=== PATIENT | female | born 1945 | race Caucasian/White ===

== ENCOUNTER 2021-01-10 07:54 | Outpatient (REF) | payer MEDICARE, SELFPAY ==
--- NOTE | ~2021-01-10 | US_ITS ---
EXAMINATION: US ABDOMINAL AORTIC ULTRASOUND CLINICAL INFORMATION: Family history of AAA. COMPARISON: Abdominal ultrasound on 05/19/2017. TECHNIQUE: Real-time ultrasound and Doppler techniques (integrating B-mode 2-D vascular images, Doppler spectral analysis and color flow Doppler imaging) were utilized to interrogate the abdominal aorta. FINDINGS: Proximal aorta: 2.6 cm AP; 2.2 cm transverse. Middle aorta: 2.2 cm AP; 2.1 cm transverse. Distal aorta: 1.6 cm AP; 1.6 cm transverse. Right common iliac artery: 0.82 cm. Left common iliac artery: 1.0 cm ADDITIONAL FINDINGS: Likely complex hepatic cysts are identified. The right lobe cyst measures up to 3.1 x 1.9 x 3.3 cm. This cyst contains a septation. The left lobe cyst measures up to 2.6 x 2.1 x 2.5 cm. This is essentially unchanged in size when compared to the comparison study in 2017. US/US abdominal aortic aneurysm IMPRESSION: 1. Normal caliber abdominal aorta. No evidence of aneurysm. 2. Minimally complex hepatic cysts.
== END 2021-01-10 07:55 | disposition home or self-care (01) ==
LOC: HO.US 07:54
PROVIDERS: Visit Provider Internal Medicine
DX: K27.7 Chronic peptic ulcer, site unspecified, without hemorrhage or perforation (principal); Z82.49 Family history of ischemic heart disease and other diseases of the circulatory system
CPT/HCPCS: 76706

== ENCOUNTER 2021-12-07 10:09 | Outpatient (REF) | payer MEDICARE, SELFPAY ==
[2021-12-07 10:13] LABS: MANUAL DIFF FLAG NO
[2021-12-07 10:27] LABS: Appearance Urine CLEAR; Color Urine YELLOW; Glucose Urine UA NEG (NEG); Leukocyte Esterase Urine TRACE (NEG); Nitrite Urine NEG (NEG); PH 5.5 (5.0-8.0); Specific Gravity - Urine 1.025 (1.005-1.025); Urine Blood TRACE (NEG); Urine Ketones NEG (NEG); Urine Protein NEG (NEG-TRACE)
[2021-12-07 10:28] LABS: Basophils Absolute Auto 0.1 X10*3/uL (0.0-0.2); Basophils Percent Auto 0.8 % (0-2); Eosinophils Absolute Auto 0.5 X10*3/uL (0.0-0.4); Eosinophils Percent Auto 7.1 % (0-4); Hematocrit 41.9 % (37.0-47.0); Hemoglobin 13.5 g/dl (12.0-16.0); Imm Gran Abs Auto 0.03 X10*3/uL (0.00-0.03); Imm Gran Pct Auto 0.4 % (0.0-0.4); Lymphocytes Absolute Auto 2.6 X10*3/uL (1.2-4.9); Lymphocytes Percent Auto 35.2 % (20-40); Mean Corpuscular HGB Conc 32.2 g/dl (31.0-35.0); Mean Corpuscular Hemoglobin 30.8 pg (27.0-33.0); Mean Corpuscular Volume 95.4 fL (80.0-98.0); Mean Platelet Volume 9.8 fL (9.4-12.3); Monocytes Absolute Auto 0.7 X10*3/uL (0.1-1.2); Monocytes Percent Auto 8.9 % (2-11); Neutrophils Absolute Auto 3.5 x10*3/uL (2.0-8.3); Neutrophils Percent Auto 47.6 % (45-73); Platelet Count 259 X10*3/uL (160-400); Red Blood Count 4.39 X10*6/uL (4.20-5.50); White Blood Count 7.3 X10*3/uL (4.8-10.8)
[2021-12-07 10:34] LABS: Alanine Aminotransferase 16 U/L (0-31); Albumin Level 4.3 g/dL (3.5-5.0); Alkaline Phosphatase 83 U/L (39-117); Anion Gap 13 (12-20); Aspartate Amino Transferase 15 U/L (5-31); Bilirubin Total 0.3 mg/dL (0.0-1.0); Blood Urea Nitrogen 13 mg/dL (9-16); Calcium 9.7 mg/dL (8.4-10.2); Carbon Dioxide 28 mmol/L (22-29); Chloride 105 mmol/L (96-108); Cholesterol 263 mg/dL; Estimated Glomerular Filt Rate > 60; Glucose Fasting 90 mg/dL (60-99); HDL Cholesterol 61 mg/dL; LDL Cholesterol Calculated 164 mg/dl; Potassium 4.2 mmol/L (3.3-5.1); Sodium 142 mmol/L (135-145); Total Protein 7.2 g/dL (6.5-8.0); Triglycerides 190 mg/dL
[2021-12-07 10:36] LABS: Estimated Average Glucose 108 mg/dL; Hemoglobin A1C 148.8223 umol/L; Hemoglobin A1c % 5.4 %
[2021-12-07 10:40] LABS: Creatinine Urine 90.78 mg/dL; Microalbum/Creatinine Ratio Ur 29.7 ug/mg cr
[2021-12-07 10:51] LABS: RBC Urine 0-2 /HPF (0); WBC Urine 0-2 /HPF (0-4)
[2021-12-07 10:52] LABS: Bacteria Urine TRACE /LPF
[2021-12-07 10:56] LABS: Vitamin D 25-OH Total 19.3 ng/mL (>30)
== END 2021-12-07 10:10 | disposition home or self-care (01) ==
LOC: HO.LNP 10:09
PROVIDERS: Visit Provider Internal Medicine
DX: Z00.00 Encounter for general adult medical examination without abnormal findings (principal); R73.03 Prediabetes; E78.00 Pure hypercholesterolemia, unspecified; D72.820 Lymphocytosis (symptomatic); E55.9 Vitamin D deficiency, unspecified
CPT/HCPCS: 80053; 80061; 81001; 82043; 82306; 83036; 85025

== ENCOUNTER 2022-02-01 07:55 | Outpatient (REF) | payer MEDICARE, SELFPAY ==
--- NOTE | ~2022-02-01 | US_ITS ---
EXAMINATION: US ABDOMEN COMPLETE CLINICAL INFORMATION: Hepatic cyst. COMPARISON: Abdominal ultrasound dated 01/10/2021. TECHNIQUE: Real-time imaging of the abdominal viscera. FINDINGS: PANCREAS: Normal. ABDOMINAL AORTA: The proximal, mid, and distal segments are normal in caliber. INFERIOR VENA CAVA: Visualized portions are normal. LIVER: The liver is normal in size. The liver contour is normal. There is no intrahepatic biliary duct dilatation seen. Within the right hepatic lobe, a lobulated anechoic, simple appearing cyst is seen. Previously this showed ultrasound dimensions of 3.1 x 1.9 x 3.3 cm. Within the left hepatic lobe, a 2.9 x 2.2 x 2.8 cm lobulated cyst is seen, with partial fine septation. Previously this showed ultrasound dimensions of 2.6 x 2.1 x 2.5 cm. Neither of these cysts shows mural nodularity or associated color Doppler flow. GALLBLADDER: Normal. The gallbladder is physiologically distended without evidence of stones, sludge, polyps, wall thickening or pericholecystic fluid. COMMON BILE DUCT: Normal in caliber measuring 0.2 cm in diameter. RIGHT KIDNEY: Normal. No hydronephrosis. No renal calculi or focal parenchymal lesions. The kidney measures 9.9 cm in maximum dimension. LEFT KIDNEY: Normal. No hydronephrosis. No renal calculi or focal parenchymal lesions. The kidney measures 10.0 cm in maximum dimension. SPLEEN: Normal. The spleen measures 7.5 cm in maximum dimension. FREE FLUID: None. US/US abdomen complete IMPRESSION: 1. There is a continued stable appearance of hepatic cysts, as detailed. 2. There is generalized increase in hepatic echotexture, consistent with fatty infiltration or hepatocellular disease. Please correlate clinically. No focal hepatic solid mass or intrahepatic biliary dilatation is seen.
== END 2022-02-01 07:56 | disposition home or self-care (01) ==
LOC: HO.US 07:55
PROVIDERS: PCP Internal Medicine; Visit Provider Internal Medicine
DX: K76.89 Other specified diseases of liver (principal)
CPT/HCPCS: 76700

== ENCOUNTER → 2022-07-08 08:51 | Outpatient (BNVA) | payer MEDICARE, SELFPAY | PROVIDERS: PCP Internal Medicine; Referring Provider Internal Medicine; Visit Provider Internal Medicine | DX: R07.2 Precordial pain (principal) | CPT/HCPCS: 93005; 99202 ==

== ENCOUNTER → 2022-07-18 15:13 | Outpatient (REF) | payer MEDICARE, SELFPAY ==
--- NOTE | 2022-07-18 15:16 | CA_ITS ---
Transthoracic Echocardiogram Patient (Last, First, Middle): Ida Hernandez A Gender: Female Date of : 1945 Age: 76 Procedure Date: 07/18/2022 Procedure Type: Transthoracic Echocardiogram Location: OP Height: 165.1 cm Weight: 75.75 kg BSA: 1.83 m2 Heart Rate: bpm BP: 110 / 82 mmHg Financial Processing Clerk: TO Referring MD: James Morley MD Community Support Associate: Graham Butterfield MD Symptoms: R07.2 - Precordial pain Study Quality: Fair ECG Rhythm: Sinus Conclusions: - 1. Normal LV systolic function with impaired relaxation filling pattern 2. Normal cardiac valvular Doppler 3. Normal RV systolic pressure 4. No gross pericardial effusion Findings Left Ventricle Normal left ventricular size, thickness, and systolic function. The visually estimated ejection fraction is between 60-65%. Spectral Doppler is indicative of an impaired relaxation filling pattern. E/E prime ratio is between 8 and 15 consistent with indeterminate filling pressures. Right Ventricle Normal right ventricular cavity size and systolic function. Atria The left atrium is normal in size. Interatrial shunt cannot be excluded. The right atrium is normal in size. Aortic Valve There is mild calcification of the aortic valve. There is no aortic valve stenosis. There is no aortic valve regurgitation. Mitral Valve There is mild anterior and posterior mitral leaflet thickening. There is trace mitral valve regurgitation. There is no mitral valve stenosis. Pulmonic Valve The pulmonic valve was not well visualized. Tricuspid Valve Likely normal tricuspid valve structure and function. There is trace tricuspid valve regurgitation. The right ventricular systolic pressure is normal. The right ventricular systolic pressure is 33 mmHg. Normal right atrial pressure. There is no evidence of pulmonary hypertension. Great Vessels All visible segments of the aorta are normal in size. The pulmonary artery was not well visualized. Venous The inferior vena cava is normal in size and collapses greater than 50% with inspiration. Pericardium/Pleural There is no evidence of pericardial effusion. Prior Study Comparison No significant change compared to prior study dated: 07/16/2017. Measurements 2D Linear Measurements IVSd: 0.94 0.6-0.9/0.6-1.0 cm LVIDd: 4.02 3.9-5.3/4.2-5.9 cm LVIDd Index: 2.20 2.4-3.2/2.2-3.1 cm/m2 LVIDs: 2.36 2.0-3.6 cm LVPWd: 0.75 0.7-1.1 cm LA Diam: 3.40 2.7-3.8/3.0-4.0 cm LAIDs Index: 1.86 1.5-2.3 cm/m2 LV Mass: 125.75 67-162/88-224 g LV Mass Index: 68.71 43-95/49-115 g/m2 LVOT Diam: 2.10 3.0+(-)1.3 cm 2D Systolic Function EF 4C: 66.50 >55% EF 2C: 62.50 >55% EF BiP: 64.90 >55% Mitral Valve MV Pk E: 0.56 MV PK A: 0.48 MV Decel Time: 240.00 E/A: 1.20 E'Lateral: 7.18 E'Medial: 5.98 E/E' Med: 9.30 E/E' Lat: 7.80 PHT: 70.00 MVA PHT: 3.14 Decel Coal: 2.32 Aortic Valve AoV Pk Jonnie: 1.41 AoV Mn Jonnie: 0.87 AoV VTI: 0.27 AoV Pk Grad: 8.00 Aov Mn Grad: 4.00 CRYS Cont.VTI: 2.33 LVOT LVOT Pk Jonnie: 0.91 LVOT Mn Jonnie: 0.60 LVOT VTI: 0.18 LVOT Pk Grad: 3.00 LVOT Mn Grad: 2.00 LVOT Diam: 2.10 LVOT Area: 3.46 Diastolic Function MV Pk E: 0.56 MV Pk A: 0.48 E/A: 1.20 E'Medial: 5.98 E/E' Med: 9.30 E' Laterial: 7.18 E/E' Lat: 7.80 Right Ventricle TAPSE (mm): 22.20 TVS' Jonnie: 12.70 Tricuspid Valve TR Pk Jonnie: 2.74 TR Pk Grad: 30.00 RA Press: 3.00 RVSP: 33.00 Great Vessels Aorta Sinus of Valsalva: 3.61 2.0-3.[address] [place]: 3.02 1.7-3.4 cm Ao Asc: 3.10 2.1-3.4 cm Updated in Other Vendor System with Status of Final Graham Scout MD electronically signed on 07/19/2022 3:12:00 PM with status of Final
== END ==
LOC: HO.CARD 15:13
PROVIDERS: Visit Provider Internal Medicine
DX: R07.2 Precordial pain (principal)
CPT/HCPCS: 93306

== ENCOUNTER 2022-07-30 09:31 | Outpatient (REF) | payer MEDICARE, SELFPAY ==
[2022-07-30 10:25] LABS: Anion Gap 15 (12-20); Blood Urea Nitrogen 17 mg/dL (9-16); Calcium 10.2 mg/dL (8.4-10.2); Carbon Dioxide 28 mmol/L (22-29); Chloride 104 mmol/L (96-108); Estimated Glomerular Filt Rate > 60; Glucose Random 89 mg/dL (60-115); Potassium 5.3 mmol/L (3.3-5.1); Sodium 142 mmol/L (135-145)
== END 2022-07-30 09:32 | disposition home or self-care (01) ==
LOC: HO.LAB 09:31
PROVIDERS: PCP Internal Medicine; Visit Provider Internal Medicine
DX: R07.2 Precordial pain (principal)
CPT/HCPCS: 36415; 80048

== ENCOUNTER 2022-08-08 15:55 | Outpatient (REF) | payer MEDICARE, SELFPAY ==
[2022-08-08 16:24] LABS: Potassium 4.4 mmol/L (3.3-5.1)
== END 2022-08-08 15:56 | disposition home or self-care (01) ==
LOC: HO.LNP 15:55
PROVIDERS: Visit Provider Internal Medicine
DX: E87.5 Hyperkalemia (principal)
CPT/HCPCS: 84132

== ENCOUNTER → 2022-08-27 15:02 | Outpatient (BNVA) | payer MEDICARE, SELFPAY | PROVIDERS: PCP Internal Medicine; Visit Provider Internal Medicine | DX: R07.2 Precordial pain (principal); I25.10 Atherosclerotic heart disease of native coronary artery without angina pectoris | CPT/HCPCS: 99212 ==

== ENCOUNTER 2022-12-16 10:52 | Outpatient (REF) | payer MEDICARE, SELFPAY ==
[2022-12-16 11:11] LABS: Basophils Absolute Auto 0.1 X10*3/uL (0.0-0.2); Basophils Percent Auto 0.8 % (0-2); Eosinophils Absolute Auto 0.4 X10*3/uL (0.0-0.4); Eosinophils Percent Auto 3.5 % (0-4); Hematocrit 43.7 % (37.0-47.0); Hemoglobin 13.8 g/dl (12.0-16.0); Imm Gran Abs Auto 0.08 X10*3/uL (0.00-0.03); Imm Gran Pct Auto 0.7 % (0.0-0.4); Lymphocytes Absolute Auto 5.7 X10*3/uL (1.2-4.9); Lymphocytes Percent Auto 48.8 % (20-40); MANUAL DIFF FLAG SCAN; Mean Corpuscular HGB Conc 31.6 g/dl (31.0-35.0); Mean Corpuscular Hemoglobin 30.6 pg (27.0-33.0); Mean Corpuscular Volume 96.9 fL (80.0-98.0); Mean Platelet Volume 9.7 fL (9.4-12.3); Monocytes Percent Auto 8.2 % (2-11); Neutrophils Absolute Auto 4.4 x10*3/uL (2.0-8.3); Platelet Count 301 X10*3/uL (160-400); Red Blood Count 4.51 X10*6/uL (4.20-5.50); Red Cell Distribution Width 13.6 % (11.0-16.0); SCAN SMEAR FLAG 1; White Blood Count 11.6 X10*3/uL (4.8-10.8)
[2022-12-16 11:13] LABS: Appearance Urine Clear; Color Urine Yellow; Glucose Urine UA Negative (Negative); Leukocyte Esterase Urine Trace (Negative); Nitrite Urine Negative (Negative); PH 5.5 (5.0-9.0); Specific Gravity - Urine 1.015 (1.005-1.025); UMIC TRIGGER UACC YES; Urine Blood Negative (Negative); Urine Ketones Negative (Negative); Urine Protein Negative (Neg-Trace)
[2022-12-16 11:18] LABS: Estimated Average Glucose 117 mg/dL; Hemoglobin A1c % 5.7 %
[2022-12-16 11:20] LABS: Bacteria Urine None Seen (None Seen); Hyaline Casts Urine 0-2 /LPF (0-2); RBC Urine 0-2 /HPF (0-2); Squamous Epithelial Cell Urine 0-2 /HPF (0-2); WBC Urine 0-5 /HPF (0-5)
[2022-12-16 11:33] LABS: SLIDE REVIEW VERIFIED
[2022-12-16 11:38] LABS: Alanine Aminotransferase 17 U/L (0-31); Albumin Level 4.3 g/dL (3.5-5.0); Alkaline Phosphatase 79 U/L (39-117); Anion Gap 14 (12-20); Aspartate Amino Transferase 12 U/L (5-31); Bilirubin Total 0.7 mg/dL (0.0-1.0); Blood Urea Nitrogen 27 mg/dL (9-16); Calcium 9.5 mg/dL (8.4-10.2); Carbon Dioxide 28 mmol/L (22-29); Chloride 105 mmol/L (96-108); Cholesterol 175 mg/dL; Estimated Glomerular Filt Rate > 60; Glucose Fasting 80 mg/dL (60-99); HDL Cholesterol 64 mg/dL; LDL Cholesterol Calculated 86 mg/dl; Potassium 4.4 mmol/L (3.3-5.1); Sodium 143 mmol/L (135-145); Total Protein 6.8 g/dL (6.5-8.0); Triglycerides 125 mg/dL
[2022-12-16 11:40] LABS: Vitamin D 25-OH Total 32.3 ng/mL (>30)
[2022-12-16 12:02] LABS: Creatinine Urine 58.64 mg/dL
== END 2022-12-16 10:53 | disposition home or self-care (01) ==
LOC: HO.LNP 10:52
PROVIDERS: Visit Provider Internal Medicine
DX: Z00.00 Encounter for general adult medical examination without abnormal findings (principal); R73.09 Other abnormal glucose; E78.00 Pure hypercholesterolemia, unspecified; D72.820 Lymphocytosis (symptomatic); E55.9 Vitamin D deficiency, unspecified; Z87.448 Personal history of other diseases of urinary system
CPT/HCPCS: 80053; 80061; 81001; 82043; 82306; 83036; 85025

== ENCOUNTER 2023-01-13 10:59 | Outpatient (REF) | payer MEDICARE, SELFPAY ==
[2023-01-13 11:02] LABS: MANUAL DIFF FLAG NO
[2023-01-13 11:42] LABS: Basophils Absolute Auto 0.1 X10*3/uL (0.0-0.2); Basophils Percent Auto 0.8 % (0-2); Eosinophils Absolute Auto 0.3 X10*3/uL (0.0-0.4); Eosinophils Percent Auto 4.4 % (0-4); Hemoglobin 13.3 g/dl (12.0-16.0); Imm Gran Abs Auto 0.03 X10*3/uL (0.00-0.03); Imm Gran Pct Auto 0.4 % (0.0-0.4); Lymphocytes Absolute Auto 2.3 X10*3/uL (1.2-4.9); Mean Corpuscular HGB Conc 31.7 g/dl (31.0-35.0); Mean Corpuscular Hemoglobin 30.5 pg (27.0-33.0); Mean Corpuscular Volume 96.3 fL (80.0-98.0); Monocytes Absolute Auto 0.7 X10*3/uL (0.1-1.2); Monocytes Percent Auto 8.8 % (2-11); Neutrophils Absolute Auto 4.1 x10*3/uL (2.0-8.3); Neutrophils Percent Auto 54.6 % (45-73); Platelet Count 270 X10*3/uL (160-400); Red Blood Count 4.36 X10*6/uL (4.20-5.50); Red Cell Distribution Width 13.2 % (11.0-16.0); White Blood Count 7.5 X10*3/uL (4.8-10.8)
[2023-01-13 11:54] LABS: Blood Urea Nitrogen 16 mg/dL (9-16)
== END 2023-01-13 11:00 | disposition home or self-care (01) ==
LOC: HO.LNP 10:59
PROVIDERS: Visit Provider Internal Medicine
DX: R79.9 Abnormal finding of blood chemistry, unspecified (principal); D72.820 Lymphocytosis (symptomatic)
CPT/HCPCS: 84520; 85025

== ENCOUNTER 2023-02-06 09:45 | Outpatient (REF) | payer MEDICARE, SELFPAY ==
--- NOTE | ~2023-02-06 | FL_ITS ---
EXAMINATION: XR FLUOROSCOPY UPPER GI WITH AIR CLINICAL INFORMATION: Acid reflux. COMPARISON: None available. TECHNIQUE: Routine upper GI air-contrast study was performed in upright and lying position. FINDINGS: Following oral administration of thick barium and effervescent granules there is normal propagation of bolus from the oral cavity through the pharynx, esophagus into stomach without any evidence of obstruction, narrowing or stricture. On placing patient supine and prone lying the course, caliber and peristalsis of the stomach, duodenal bulb and the sweep is normal. There is small hiatal hernia with mild gastroesophageal reflux. The mucosal pattern of the stomach, duodenal bulb and the sweep is normal. FLUOROSCOPY TIME: 2 minutes DOSE AREA PRODUCT: 29.020 uGy-m2 (microgray-meter squared) FL/FL upper GI w air IMPRESSION: Small hiatal hernia with mild gastroesophageal reflux.
== END 2023-02-06 09:46 | disposition home or self-care (01) ==
LOC: HO.XRAY 09:45
PROVIDERS: Visit Provider Internal Medicine
DX: K21.00 Gastro-esophageal reflux disease with esophagitis, without bleeding (principal)
CPT/HCPCS: 74246

== ENCOUNTER → 2023-02-27 08:09 | Outpatient (BNVA) | payer MEDICARE, SELFPAY | PROVIDERS: PCP Internal Medicine; Referring Provider Internal Medicine; Visit Provider Internal Medicine | DX: I25.10 Atherosclerotic heart disease of native coronary artery without angina pectoris (principal); Z79.82 Long term (current) use of aspirin; Z79.899 Other long term (current) drug therapy | CPT/HCPCS: 99212 ==

== ENCOUNTER 2024-01-09 07:42 | Outpatient (REF) | payer MEDICARE, SELFPAY ==
[2024-01-09 08:14] LABS: MANUAL DIFF FLAG NO
[2024-01-09 08:18] LABS: Basophils Absolute Auto 0.1 X10*3/uL (0.0-0.2); Eosinophils Absolute Auto 0.3 X10*3/uL (0.0-0.4); Eosinophils Percent Auto 4.1 % (0-4); Hematocrit 40.9 % (37.0-47.0); Hemoglobin 13.4 g/dl (12.0-16.0); Imm Gran Abs Auto 0.03 X10*3/uL (0.00-0.03); Imm Gran Pct Auto 0.4 % (0.0-0.4); Lymphocytes Percent Auto 28.8 % (20-40); Mean Corpuscular HGB Conc 32.8 g/dl (31.0-35.0); Mean Corpuscular Volume 94.7 fL (80.0-98.0); Mean Platelet Volume 9.1 fL (9.4-12.3); Monocytes Absolute Auto 0.5 X10*3/uL (0.1-1.2); Monocytes Percent Auto 6.4 % (2-11); Neutrophils Absolute Auto 4.2 x10*3/uL (2.0-8.3); Neutrophils Percent Auto 59.3 % (45-73); Platelet Count 243 X10*3/uL (160-400); Red Blood Count 4.32 X10*6/uL (4.20-5.50); Red Cell Distribution Width 13.1 % (11.0-16.0)
[2024-01-09 08:51] LABS: Estimated Average Glucose 103 mg/dL; Hemoglobin A1c % 5.2 % (<6.0)
[2024-01-09 08:59] LABS: Appearance Urine Clear; Color Urine Yellow; Glucose Urine UA Negative (Negative); Leukocyte Esterase Urine Moderate (2+) (Negative); Nitrite Urine Negative (Negative); Specific Gravity - Urine 1.015 (1.005-1.025); UMIC TRIGGER UACC YES; Urine Blood Trace (Negative); Urine Ketones Negative (Negative); Urine Protein Negative (Neg-Trace)
[2024-01-09 09:06] LABS: Bacteria Urine None Seen (None Seen); Hyaline Casts Urine 0-2 /LPF (0-2); Squamous Epithelial Cell Urine 0-2 /HPF (0-2); UACC Culture Trigger YES
[2024-01-09 09:06] LABS: Alanine Aminotransferase 19 U/L (0-31); Albumin Level 4.3 g/dL (3.5-5.0); Alkaline Phosphatase 77 U/L (39-117); Anion Gap 14 (12-20); Aspartate Amino Transferase 17 U/L (5-31); Bilirubin Total 0.5 mg/dL (0.0-1.0); Blood Urea Nitrogen 19 mg/dL (9-16); Calcium 9.9 mg/dL (8.4-10.2); Carbon Dioxide 28 mmol/L (22-29); Chloride 106 mmol/L (96-108); Cholesterol 167 mg/dL (<200); Estimated Glomerular Filt Rate > 60; Glucose Fasting 95 mg/dL (60-99); HDL Cholesterol 64 mg/dL (>40); LDL Cholesterol Calculated 85 mg/dL (<100); Sodium 143 mmol/L (135-145); Total Protein 7.4 g/dL (6.5-8.0); Triglycerides 90 mg/dL (<150)
[2024-01-09 09:08] LABS: Vitamin D 25-OH Total 27.9 ng/mL (>30)
[2024-01-09 09:16] LABS: Creatinine Urine 73.03 mg/dL
== END 2024-01-09 07:43 | disposition home or self-care (01) ==
LOC: HO.LAB 07:42
PROVIDERS: PCP Internal Medicine; Visit Provider Internal Medicine
DX: Z00.00 Encounter for general adult medical examination without abnormal findings (principal); R73.03 Prediabetes; E78.00 Pure hypercholesterolemia, unspecified; D72.820 Lymphocytosis (symptomatic); E55.9 Vitamin D deficiency, unspecified
CPT/HCPCS: 36415; 80053; 80061; 81001; 82043; 82306; 82570; 83036; 85025; 87086

== ENCOUNTER 2024-01-14 08:28 | Outpatient (REF) | payer MEDICARE, SELFPAY ==
--- NOTE | ~2024-01-14 | XR_ITS ---
EXAMINATION: XR THORACIC SPINE CLINICAL INFORMATION: Upper back pain COMPARISON: CXR from 09/08/2018 TECHNIQUE: 3 views of the thoracic spine were obtained. FINDINGS: The thoracic vertebra have normal height and alignment. There is 17 degrees of levoscoliosis of the lower thoracic and lumbar spine as measured from the superior endplate of T10 to the inferior plate of L3, apex of curvature at T12. The thoracic disc spaces are well-preserved. No fracture or subluxation. No radiographic evidence of any significant inflammatory or degenerative arthropathy of the lumbar spine. There is multilevel facet arthropathy of the cervical spine and associated mild anterolisthesis at C3-C4 and C4-C5. There is degenerative loss of disc space and anterior vertebral osteophyte formation at C5-C6. Multilevel degenerative loss of disc height and vertebral osteophyte formation of partially visualized lumbar spine, as well, and there is mild degenerative left lateral listhesis of L1 on L2. There is atherosclerotic calcification of the aorta. XR/XR thoracic spine 3V IMPRESSION: * There is levoscoliosis of the lower thoracic and lumbar spine with apex of curvature at T12. * No evidence of a spondyloarthropathy affecting the thoracic spine. * However, there are multilevel degenerative changes of the visualized cervical and lumbar spine.
== END 2024-01-14 08:29 | disposition home or self-care (01) ==
LOC: HO.XRAY 08:28
PROVIDERS: PCP Internal Medicine; Visit Provider Internal Medicine
DX: M54.9 Dorsalgia, unspecified (principal)
CPT/HCPCS: 72072

== ENCOUNTER 2024-01-30 10:53 | Outpatient (REF) | payer MEDICARE, SELFPAY ==
[2024-01-30 11:49] LABS: Appearance Urine Clear; Color Urine Yellow; Glucose Urine UA Negative (Negative); Leukocyte Esterase Urine Moderate (2+) (Negative); Nitrite Urine Negative (Negative); PH 5.5 (5.0-9.0); Specific Gravity - Urine 1.015 (1.005-1.025); UMIC TRIGGER UACC YES; Urine Blood Negative (Negative); Urine Ketones Negative (Negative); Urine Protein Negative (Neg-Trace)
[2024-01-30 11:53] LABS: Bacteria Urine None Seen (None Seen); Hyaline Casts Urine 0-2 /LPF (0-2); RBC Urine 0-2 /HPF (0-2); Squamous Epithelial Cell Urine 0-2 /HPF (0-2); UACC Culture Trigger YES
== END 2024-01-30 10:54 | disposition home or self-care (01) ==
LOC: HO.LNP 10:53
PROVIDERS: Visit Provider Internal Medicine
DX: R31.9 Hematuria, unspecified (principal)
CPT/HCPCS: 81001; 87086

== ENCOUNTER 2024-03-16 13:28 | Outpatient (AMB) | payer MEDICARE, SELFPAY ==
--- NOTE | 2024-03-16 13:30 | MHC.OFFVIS ---
Vital Signs 03/16/24 13:31 Height 5 ft 5 in Weight 163 lb 2.273 oz BMI 27.1 BP 130/72 Blood Pressure Location Lt brachial Position Sitting Pulse 73 Intake Visit Reasons: 1 yr f/up Business Practices Officer Required: No Accompanied by: Self / Same As Patient Allergies atorvastatin [Lipitor] Allergy (Unknown, Verified 02/27/23 08:23) myalgia naproxen [Naprosyn] Allergy (Unknown, Verified 02/27/23 08:23) oral sores simvastatin Allergy (Unknown, Verified 02/27/23 08:23) myalgia Medication List - Last Reconciled 03/16/24 by James Morley MD aspirin (Adult Low Dose Aspirin) 81 mg PO DAILY duloxetine 60 mg PO DAILY nitroglycerin 0.4 mg sublingual Q5M omeprazole 20 mg PO DAILY rosuvastatin (Crestor) 20 mg PO DAILY HPI Comments Details: Ida returns for follow-up regarding coronary artery disease. She had some episodes of chest and jaw pain but only at nighttime but nothing exertion. She underwent workup with a coronary CTA. That showed nonobstructive disease. Overall, no new symptoms. She states she feels fine. No cardiac symptoms like angina. With regard to statins, lot of muscle spasm like symptoms. [facility] Medical History (Updated 03/16/24 @ 14:43 by James Morley MD) Statin intolerance Surgical History History of back surgery Hx of hernia repair Hx of hysterectomy Family History Father No problems noted. Mother No problems noted. Social History Alcohol intake: current Alcohol intake frequency: holidays/special occasions only Patient Tobacco Use Status: Former Tobacco user Quit Date: 10+yrs ago Review of Systems Const Denies chills, Denies fatigue, Denies fever(s), Denies frequent falls, Denies weakness, Denies weight gain and Denies weight loss ENT Denies dizziness Card Denies chest pain, Denies leg edema, Denies lightheadedness, Denies palpitations, Denies dyspnea and Denies dyspnea on exertion Resp Denies cough, Denies dyspnea and Denies dyspnea on exertion GI Denies hematochezia Musc Denies abnormal gait, Denies muscle weakness, Denies numbness, Denies radiating pain into limb and Denies tingling Neuro Denies abnormal gait, Denies dizziness, Denies frequent falls, Denies numbness, Denies tingling and Denies weakness Endo Denies fatigue and Denies palpitations Physical Exam Vital Signs: Last Vital Signs Pulse 73 03/16/24 13:31 BP 130/72 03/16/24 13:31 BMI result Body Mass Index 27.1 Const General: comfortable and no acute distress Orientation/consciousness: patient oriented x3 HEENT Other: Unremarkable Head: Yes normal to inspection Neck Neck: Yes normal visual inspection Chest Chest palpation & inspection: normal inspection of the chest Resp Auscultation: clear to auscultation bilaterally Cardio Palpation: normal PMI Heart sounds: S1 normal heart sound present, S2 normal heart sound present, no gallops, no murmurs and no rubs GI Palpation (GI): Soft to palpation Back/Spine/Pelvis Other: unremarkable Skin General skin exam: no rashes or lesions noted Neuro General: patient oriented x3 Extrem General: Yes normal to inspection Psych Mental Status: mental status grossly normal Office Procedures EKG Details: EKG with sinus rhythm at 88/Min; no significant ST-T changes and otherwise unremarkable[place]. [address]-[id number], Complete Assessment & Plan Assessment & Plan (1) Atherosclerotic cardiovascular disease: Code(s): I25.10 - Atherosclerotic heart disease of [place] coronary artery without angina pectoris Category: Medical (2) Statin intolerance: Code(s): Z78.9 - Other specified health status Category: Medical Plan Cardiac studies reviewed. Echocardiogram from 2017 with LVEF 60-65%; mild diastolic dysfunction but otherwise unremarkable. Myocardial perfusion imaging study from 2017 with normal perfusion. Coronary CTA from 2021-left main with mild stenosis; LAD, 50% stenosis in the mid to distal portion. Circumflex 50% stenosis. Right coronary artery with suspected about 50% stenosis. Can rate for stable coronary disease. Continue aspirin. With regard to statins, unable to take and she is tried both atorvastatin as well as rosuvastatin. Hence try Praluent. Orders: Referrals Pulmonary Medicine Referral Z12.2 - Encounter for screening for malignant neoplasm of respiratory organs Medications: New alirocumab (Praluent Pen) inject into abdomen, thigh, or upper arm (deltoid muscle); rotate sites 75 mg subcut Q2W 2 mL 5RF E78.5 - Hyperlipidemia, unspecified, I25.10 - Atherosclerotic heart disease of [place] coronary artery without angina pectoris Discontinued rosuvastatin (Crestor) Discontinued Reason: Doctor's Order 20 mg PO DAILY 90 tabs 3RF Coding Level of Care Code Est Pt Level 4 (46312) Diagnoses Atherosclerotic cardiovascular disease I25.10 Statin intolerance Z78.9 CPT Codes EKG - CPT: 14465-Skokfyyosavlfbetz, Complete ([id number])
[2024-03-16 13:31] VITALS: BP 130/72; PULSE 73; BMI 27.1
== END 2024-03-16 14:02 | disposition home or self-care (01) ==
PROVIDERS: PCP Internal Medicine; Visit Provider Internal Medicine
DX: I25.10 Atherosclerotic heart disease of native coronary artery without angina pectoris (principal); Z78.9 Other specified health status
CPT/HCPCS: 93010; 99214

== ENCOUNTER → 2024-03-16 13:28 | Outpatient (BNVA) | payer MEDICARE, SELFPAY | PROVIDERS: PCP Internal Medicine; Visit Provider Internal Medicine | DX: I25.10 Atherosclerotic heart disease of native coronary artery without angina pectoris (principal); E78.5 Hyperlipidemia, unspecified; Z78.9 Other specified health status | CPT/HCPCS: 93005; 99212 ==

== ENCOUNTER 2024-06-17 10:20 | Outpatient (REF) | payer MEDICARE, SELFPAY ==
[2024-06-17 11:08] LABS: Estimated Average Glucose 105 mg/dL; Hemoglobin A1c % 5.3 % (<6.0)
[2024-06-17 11:34] LABS: Cholesterol 142 mg/dL (<200); Glucose Fasting 102 mg/dL (60-99); HDL Cholesterol 62 mg/dL (>40); LDL Cholesterol Calculated 63 mg/dL (<100); Triglycerides 88 mg/dL (<150)
== END 2024-06-17 10:21 | disposition home or self-care (01) ==
LOC: HO.LNP 10:20
PROVIDERS: Visit Provider Internal Medicine
DX: R73.09 Other abnormal glucose (principal); E78.00 Pure hypercholesterolemia, unspecified
CPT/HCPCS: 80061; 82947; 83036

== ENCOUNTER 2024-07-01 13:03 | Outpatient (REF) | payer MEDICARE, SELFPAY ==
[2024-07-01 13:54] LABS: TSH reflex Free T4 0.99 uIU/mL (0.32-4.0)
== END 2024-07-01 13:04 | disposition home or self-care (01) ==
LOC: HO.LNP 13:03
PROVIDERS: Visit Provider Internal Medicine
DX: R68.89 Other general symptoms and signs (principal)
CPT/HCPCS: 84443

== ENCOUNTER 2024-09-06 06:23 | Day surgery (SDC) | payer MEDICARE, SELFPAY ==
[2024-09-02 14:28] VITALS: BMI 26.3
[2024-09-06 07:26] VITALS: BMI 26.1
--- NOTE | 2024-09-06 07:30 | HO.ANESPROP2 ---
Documented by User: Kelsey Lombardo NP 09/03/24 09:00 HPI - Anesthesia Eval Consult details Narrative: 79yo F for Colonoscopy Follows [facility] [place] [facility] for stable CAD. Last office visit 02/2024 and OK for routine yearly f/u [facility] Active Problems Active Problems: All Active Problems Atherosclerotic cardiovascular disease (Acute) Precordial chest pain (Acute) Statin intolerance (Acute) Past Medical History Medical History (Updated 09/02/24 @ 14:10 by Annamarie Engle RN) Hiatal hernia GERD (gastroesophageal reflux disease) Hepatic cyst Hyperlipidemia Fibromyalgia Depression Statin intolerance Family History Family History Father No problems noted. Mother No problems noted. Surgical History Surgical History (Updated 09/02/24 @ 14:10 by Annamarie Engle RN) Hx of appendectomy H/O colonoscopy History of back surgery Hx of hernia repair Hx of hysterectomy Social History Social History Are you a primary neonatal critical care nurse to a significant other at home: No Do you presently have visiting nurse or other home services: No Alcohol intake: current Alcohol intake frequency: holidays/special occasions only Patient Tobacco Use Status: Former Tobacco user Use of substances other than those prescribed or required for medical reasons: No Have you been hit, kicked, punched, or otherwise hurt by someone within the past year? If so, by whom?: No Are you DNR?: No Advance Directives: No Advance Directives Information Provided: Yes Recently lost weight without trying: No Nutrition Risks: No Nutritional Risk Patient : No Meds Allergies Allergy/AdvReac Type Severity Reaction Status Date / Time atorvastatin [Lipitor] Allergy Unknown myalgia Verified 09/06/24 07:24 naproxen [Naprosyn] Allergy Unknown oral sores Verified 09/06/24 07:24 simvastatin Allergy Unknown myalgia Verified 09/06/24 07:24 crestor/rosuvastatin AdvReac Intermediate myalgias Uncoded 03/18/24 10:39 Home Medications ?Medication ?Instructions ?Recorded ?Confirmed ?Last Taken ?Type duloxetine 60 mg capsule,delayed 60 mg PO DAILY 07/08/22 09/02/24 Unknown History release nitroglycerin 0.4 mg sublingual 0.4 mg sublingual Q5M 07/08/22 09/06/24 Unknown History tablet omeprazole 20 mg capsule,delayed 20 mg PO DAILY 07/08/22 09/06/24 Unknown History release aspirin 81 mg tablet,delayed 81 mg PO DAILY 02/27/23 09/06/24 08/31/24 History release (Adult Low Dose Aspirin) Exam Height,Weight and Vital Signs: Height 5 ft 6 in Weight 73.936 kg Pertinent Lab Results Pertinent Lab Results: Laboratory Tests 01/09/24 08:12 WBC 7.0 Hgb 13.4 Hct 40.9 Plt Count 243 Sodium 143 Potassium 5.0 Chloride 106 Carbon Dioxide 28 BUN 19 H Creatinine 0.86 Narrative Narrative: EKG 02/2024 sinus rhythm at 73/Min; nonspecific ST-T changes; normal [place] and corrected QT. Per 02/2024 cardiac note: Echocardiogram from 2016 with LVEF 60-65%; mild diastolic dysfunction but otherwise unremarkable. Myocardial perfusion imaging study from 2016 with normal perfusion. Coronary CTA from 2021-left main with mild stenosis; LAD, 50% stenosis in the mid to distal portion. Circumflex 50% stenosis. Right coronary artery with suspected about 50% stenosis. Assessment and Plan Assessment Anesthesia Assessment: Chart Reviewed Documented by User: Kimberly Barragan DO 09/06/24 07:34 [facility] Past Medical History Medical History (Updated 09/02/24 @ 14:10 by Annamarie Engle RN) Hiatal hernia GERD (gastroesophageal reflux disease) Hepatic cyst Hyperlipidemia Fibromyalgia Depression Statin intolerance Family History Family History Father No problems noted. Mother No problems noted. Family history of problems with anesthesia: No Surgical History Surgical History (Updated 09/02/24 @ 14:10 by Annamarie Engle RN) Hx of appendectomy H/O colonoscopy History of back surgery Hx of hernia repair Hx of hysterectomy History of Problems with Anesthesia: No Social History Social History Are you a primary neonatal critical care nurse to a significant other at home: No Do you presently have visiting nurse or other home services: No Alcohol intake: current Alcohol intake frequency: holidays/special occasions only Patient Tobacco Use Status: Former Tobacco user Use of substances other than those prescribed or required for medical reasons: No Have you been hit, kicked, punched, or otherwise hurt by someone within the past year? If so, by whom?: No Are you DNR?: No Advance Directives: No Advance Directives Information Provided: Yes Recently lost weight without trying: No Nutrition Risks: No Nutritional Risk Patient : No Meds Allergies Allergy/AdvReac Type Severity Reaction Status Date / Time atorvastatin [Lipitor] Allergy Unknown myalgia Verified 09/06/24 07:24 naproxen [Naprosyn] Allergy Unknown oral sores Verified 09/06/24 07:24 simvastatin Allergy Unknown myalgia Verified 09/06/24 07:24 crestor/rosuvastatin AdvReac Intermediate myalgias Uncoded 03/18/24 10:39 Home Medications ?Medication ?Instructions ?Recorded ?Confirmed ?Last Taken ?Type duloxetine 60 mg capsule,delayed 60 mg PO DAILY 07/08/22 09/02/24 Unknown History release nitroglycerin 0.4 mg sublingual 0.4 mg sublingual Q5M 07/08/22 09/06/24 Unknown History tablet omeprazole 20 mg capsule,delayed 20 mg PO DAILY 07/08/22 09/06/24 Unknown History release aspirin 81 mg tablet,delayed 81 mg PO DAILY 02/27/23 09/06/24 08/31/24 History release (Adult Low Dose Aspirin) Exam Exam Date and Time: 09/06/24 0730 Airway Mallampati Class: I TM Dist: >3cm Neck ROM: Full Partial: Upper Heart: S1S2 Lungs: CTAB Assessment and Plan Assessment Anesthesia Assessment: Anesthesia Plan Discussed and Chart Reviewed Final Anesthetic Review Family History of Problems with Anesthesia: No History of Problems with Anesthesia: No NPO: Yes ASA Class: II Final Preanesthetic Review: No Changes in Pt Med Stat, Meds/Allgs Chart Reviewed, Consent Obtained/Reviewed and Anes Risks/Benef Reviewed Patient Risk: Low Procedure Risk: Low Anesthetic Plan Anesthetic Plan: MAC: and Agree w/ Assess. and Plan Disposition: Standard PACU
[2024-09-06 07:43] VITALS: BP 152/71; PULSE 73; RESP 14; TEMP 36.8; O2SAT 98
[2024-09-06] MEDS: Lactated Ringers 1,000 ML 100 ML IVCONT (07:45)
[2024-09-06 08:34] VITALS: BP 120/48; PULSE 76; RESP 16; TEMP 36.3; O2SAT 98
--- NOTE | 2024-09-06 08:34 | PM.OP ---
Brief Operative Note Date of Service: 09/06/24 Pre-op diagnosis: Screening Post-op diagnosis: other (Diverticulosis) Procedure: Colonoscopy to the cecum and TI Surgeon: Roque Wright MD Anesthesia: MAC Was an Geotechnical Department Manager used for this Procedure?: No Estimated blood loss (mL): 0 Pathology: none sent Condition: stable Disposition: PACU
[2024-09-06 08:49] VITALS: BP 147/66; PULSE 78; RESP 16; TEMP 36.2; O2SAT 98
--- NOTE | 2024-09-06 08:57 | OP_ITS ---
DATE OF SERVICE: 09/06/2024 SURGEON: Roque Wright MD INDICATIONS: The patient presents for evaluation of colorectal cancer screening. Full consent has been obtained from her for this, including risks of bleeding and perforation. PREOPERATIVE DIAGNOSIS: POSTOPERATIVE DIAGNOSIS: PROCEDURE PERFORMED: Colonoscopy to the cecum and terminal ileum. ESTIMATED BLOOD LOSS: COMPLICATIONS: ANESTHESIA: Monitored anesthesia care. ASSISTANTS: SPECIMENS: PREOPERATIVE DIAGNOSES: Colorectal cancer screening and personal history of a tubular adenoma of the colon. POSTOPERATIVE DIAGNOSES: Colorectal cancer screening and personal history of a tubular adenoma of the colon, diverticulosis, internal and external hemorrhoids. DESCRIPTION OF PROCEDURE: The patient was placed in the left lateral decubitus position. The digital rectal exam revealed some small external hemorrhoids. The Olympus video pediatric colonoscope was entered into the rectum and advanced easily to the cecum. Once in the cecum, I did identify normal-appearing cecal pouch with appendiceal orifice and a normal-appearing ileocecal valve. The terminal ileum was cannulated and appeared normal. The scope was withdrawn back in the colon. The entire cecum and ileocecal valve appeared normal. The scope was slowly withdrawn assessing all mucosal surfaces carefully. Preparation was excellent. I did not visualize any sign of polyps, colitis, or angiodysplasia. There was a moderate amount of diverticulosis in the descending and sigmoid colon as well as some scattered diverticula throughout the remainder of the colon. In the rectum, scope was retroflexed visualizing internal hemorrhoids, but no other pathology. The rectal mucosa otherwise appeared normal. The scope was straightened and withdrawn from the patient. She tolerated the procedure well and was returned to the recovery area in stable condition. IMPRESSION: 1. Diverticulosis. 2. Internal and external hemorrhoids. PLAN: Given today's negative exam and her age, I do not think she would need any further screening colonoscopies. She will otherwise see me on a p.r.n. basis. MD CESAR Long/JUAN CARLOS / [phone]
== END 2024-09-06 09:08 | disposition home or self-care (01) ==
PROVIDERS: PCP Internal Medicine; Visit Provider Internal Medicine
PROC: 0DJD8ZZ Inspection of Lower Intestinal Tract, Via Natural or Artificial Opening Endoscopic (ICD-10-PCS; CPT 45378; principal; 2024-09-06 07:30)
DX: Z12.11 Encounter for screening for malignant neoplasm of colon (principal); Z86.0101 Personal history of adenomatous and serrated colon polyps; K57.30 Diverticulosis of large intestine without perforation or abscess without bleeding; K64.8 Other hemorrhoids; K64.4 Residual hemorrhoidal skin tags; K21.9 Gastro-esophageal reflux disease without esophagitis; K76.89 Other specified diseases of liver; Z80.0 Family history of malignant neoplasm of digestive organs; M79.7 Fibromyalgia; E78.5 Hyperlipidemia, unspecified; F32.A Depression, unspecified; Z79.82 Long term (current) use of aspirin; Z79.899 Other long term (current) drug therapy; Z98.890 Other specified postprocedural states
CPT/HCPCS: G0105; J2704

== ENCOUNTER 2024-09-16 11:08 | Outpatient (REF) | payer MEDICARE, SELFPAY ==
--- NOTE | ~2024-09-16 | XR_ITS ---
EXAMINATION: XR HIP, LEFT CLINICAL INFORMATION: Pain. COMPARISON: Left femur radiographs dated 05/31/2016. TECHNIQUE: AP and frog-leg lateral views of the left hip. FINDINGS: Bony alignment and mineralization are normal. The left acetabular joint space is well-maintained. The left femoral head is smooth. There is no fracture or dislocation. The soft tissue planes are unremarkable, without foreign body. XR/XR hip LT min 2V IMPRESSION: Unremarkable left hip. Electronically signed by: Scottie White MD 09/16/2024 10:52 PM EDT RP
== END 2024-09-16 11:09 | disposition home or self-care (01) ==
LOC: HO.XRAY 11:08
PROVIDERS: PCP Internal Medicine; Visit Provider Internal Medicine
DX: M25.552 Pain in left hip (principal)
CPT/HCPCS: 73502

== ENCOUNTER 2025-01-07 10:57 | Outpatient (REF) | payer MEDICARE, SELFPAY ==
[2025-01-07 11:01] LABS: MANUAL DIFF FLAG NO
[2025-01-07 11:15] LABS: Basophils Absolute Auto 0.1 X10*3/uL (0.0-0.2); Eosinophils Absolute Auto 0.3 X10*3/uL (0.0-0.4); Eosinophils Percent Auto 4.1 % (0-4); Hematocrit 42.2 % (37.0-47.0); Hemoglobin 13.6 g/dl (12.0-16.0); Imm Gran Abs Auto 0.05 X10*3/uL (0.00-0.03); Imm Gran Pct Auto 0.6 % (0.0-0.4); Lymphocytes Absolute Auto 2.8 X10*3/uL (1.2-4.9); Lymphocytes Percent Auto 33.6 % (20-40); Mean Corpuscular HGB Conc 32.2 g/dl (31.0-35.0); Mean Corpuscular Hemoglobin 31.1 pg (27.0-33.0); Mean Corpuscular Volume 96.3 fL (80.0-98.0); Mean Platelet Volume 9.6 fL (9.4-12.3); Monocytes Absolute Auto 0.7 X10*3/uL (0.1-1.2); Monocytes Percent Auto 8.2 % (2-11); Neutrophils Absolute Auto 4.4 x10*3/uL (2.0-8.3); Neutrophils Percent Auto 52.5 % (45-73); Platelet Count 264 X10*3/uL (160-400); Red Blood Count 4.38 X10*6/uL (4.20-5.50); Red Cell Distribution Width 13.1 % (11.0-16.0); White Blood Count 8.4 X10*3/uL (4.8-10.8)
[2025-01-07 11:23] LABS: Estimated Average Glucose 105 mg/dL; Hemoglobin A1C 121.0106 umol/L; Hemoglobin A1c % 5.3 % (<6.0); Total Hemoglobin (HGBA1C) 3547.0654 umol/L
[2025-01-07 11:48] LABS: Alanine Aminotransferase 21 U/L (0-31); Albumin Level 4.2 g/dL (3.5-5.0); Alkaline Phosphatase 82 U/L (39-117); Anion Gap 12 (12-20); Aspartate Amino Transferase 23 U/L (5-31); Bilirubin Total 0.3 mg/dL (0.0-1.0); Blood Urea Nitrogen 19 mg/dL (9-16); Calcium 9.7 mg/dL (8.4-10.2); Carbon Dioxide 29 mmol/L (22-29); Chloride 106 mmol/L (96-108); Cholesterol 155 mg/dL (<200); Estimated Glomerular Filt Rate > 60; Glucose Fasting 86 mg/dL (60-99); HDL Cholesterol 62 mg/dL (>40); LDL Cholesterol Calculated 73 mg/dL (<100); Potassium 4.7 mmol/L (3.3-5.1); Sodium 142 mmol/L (135-145); Total Protein 7.6 g/dL (6.5-8.0); Triglycerides 101 mg/dL (<150); Vitamin D 25-OH Total 59.7 ng/mL (>30)
--- OUTSIDE RECORDS SUMMARY | 2025-01-07 12:05 | XMS_ITS ---
Author Organization Brandon Phelan MD Address [address] [place], [place] [id number] Care Team Providers Care Wave Guide Assembler Name Role Phone Brandon Phelan Primary Care Provider Allergies Allergen (clinical drug ingredient) Drug/Non Drug Allergy documented on EMR Reaction Allergy Type Onset Date Status Simvastatin myalgia Drug Allergy Activ e atorvastatin Lipitor myalgia Drug Allergy Acti ve Reason For Referral Reason lumbar disc disease Diagnosis 1 Lumbar disc disease with radiculopathy (M51.16) Referral Organization Brandon Phelan MD Referring Provider First Name Brandon Referring Provider Last Name [place] Referring Provider Speciality Internal M edicine Referred Provider Mich Santana Referred Provider Specialty Neurological Surgery General Notes Kaykay Rick 0 12/17/2024 12:24:08 PM >info faxed, Kaykay Rick 12/20/2024 07:23:46 AM >info mailed to patient Referral Priority Routine Referral Appointment Date 01/20/2025 REASON FOR VISIT back pain ? referral to Dr. Santana Medications Medication SIG (Take, Route, Frequency, Duration) Notes Start Date End Date Status Albuterol Sulfate HFA 108 (90 Base) MCG/ACT 1 puff as needed Inhalation every 4 hrs for 30 days 01/29/2022 Active Valtrex 1 GM 1 tablet Orally ever y 8 hours for 7 days 11/04/2016 Not-Taking ProAir HFA 108 (90 Base) MCG/ACT 2 puffs as needed Inhalation every 4 hrs for 30 days 01/18/2014 Not-Taking Aspir-Low 81 MG 1 tablet Orally Once a day for 30 day(s) Active Praluent 75 MG/ML as directed Subcutaneous Active Diprolene AF 0.05 % 1 application to affected area Externally Once a day for 30 days 08/13/2016 Not-Takin g Tylenol 8 Hour 650 MG 2 tablets as neede d Orally every 8 hrs Not-Taking ProAir RespiClick 108 (90 Base) MCG/ACT 2 puffs as needed Inhalation every 6 hrs for 30 days 09/08/2018 Not-Taking Vitamin D 50 MCG (1999 UT) 1 tablet Orally Once a day for 30 day(s) Not-Taking Ocuflox 0.3 % 1 drop into affected eye Ophthalmic Four times a day for 10 days 12/18/2021 Not-Taking Omeprazole 20 MG TAKE 1 CAPSULE BY MO UT EVERY DAY 30 MINUTES BEFORE MORNING MEAL for 90 Active DULoxetine HCl 60 MG TAKE 1 CAPSULE BY M OUTH EVERY DAY FOR 30 DAYS for 90 Active Nitrostat 0.4 MG as directed Sublingu al for chest pain may repeat every 5 min times 3 for 30 days 06/18/2022 Active Escitalopram Oxalate 10 MG 1 tablet Orally Once a day for 90 days Not-Taking Ocuflox 0.3 % 1 drop into affected eye Ophthalmic Four times a day for 7 days 06/18/2022 Not-Taking Vital Signs Blood pressure systolic 112 mm Hg 12/17/19 25 Blood pressure diastolic 64 mm Hg 025 Height 65 in 12/17/2024 Weight 161 lbs 12/17/2024 BMI 26.79 kg/m2 12/17/2024 weight is down 2 pounds [facility] 09-16-24 Encounters Encounter Location Date Provider Diagnosis Brandon Phelan MD [address] [place], [place] [phone] 12/17/2024 Brandon Phelan Lumbar disc disease with radiculopathy M51.16 Assessments Encounter Date Diagnosis (ICD Code) Assessment Notes Treatment Notes Treatment Clinical Notes Section Notes 12/17/2024 Lumbar disc disease with radiculopathy (ICD-10 - M51.16) referral to dr santana has pain in hip and can't walk without numbness. has a disc on the mri that i reviewed with her that seems to be consistant with her complaints. will refer back to dr santana. have reviewed the mri with her in detail Plan Of Treatment Treatment Notes Assessment Notes Lumbar disc disease with radiculopathy r eferral to dr santana has pain in hip and can't walk without numbness. has a disc on the mri that i reviewed with her that seems to be consistant with her complaints. will refer back to dr santana. have reviewed the mri with her in detail Referrals Referral Date Details 12/17/2024 12/17/2024, lumbar d isc disease, Mich Santana Next Appt Details Provider Name:Brandon Villagomez ier, 01/14/2025 08:00:00 AM, [address], [address], [place], [place], [id number], Progress Notes * Ida ROMO ADOB: 5 (79 yo F)Acc No.[id number]:12/17/2024 Patient:?Ida ROMO A Provider:?Brandon Phelan MD :1945???Age:79 Y???Sex:Female D ate:12/17/2024 Address: [address] [place], [id number] Subjective: * Chief Complaints: * ???back pain ? referral to Filipe Santana * HPI: ???Symptom(s):? patient is a 79 yo female with complaint of back pain, requesting referral to Dr Santana. * ROS:?General/Constitutional:?Denies?Chills.?Denies?Fatigue.?Denies?Fever.?Denies?Headache.?ENT:?Patient denies?decreased sense of smell, any loss of taste, sore throat.?Denies?Sore throat.?Respiratory:?Denies?Cough.?Denies?Shortness of breath at rest.?Denies?Shortness of breath with exertion.?Gastrointestinal:?Denies?Diarrhea.?Denies?Nausea.?Musculoskeletal:?Patient denies?muscle aches.?Peripheral Vascular:?Patient denies?red and blue toes.? * Medical History:? * Surgical History:? * Hospitalization/Major Diagno stic Procedure:? * Medications:?TakingPraluent 75 MG/ML Solution Auto-injector as directed Subcutaneous Aspir-Low 81 MG Tablet Delayed Release 1 tablet Orally Once a day Albuterol Sulfate HFA 108 (90 Base) MCG/ACT Aerosol Solution 1 puff as needed Inhalation every 4 hrs Nitrostat 0.4 MG Tablet Sublingual as directed Sublingual for chest pain may repeat every 5 min times 3 Omeprazole 20 MG Capsule Delayed Release TAKE 1 CAPSULE BY MOUTH EVERY DAY 30 MINUTES BEFORE MORNING MEAL DULoxetine HCl 60 MG Capsule Delayed Release Particles TAKE 1 CAPSULE BY MOUTH EVERY DAY FOR 30 DAYS Taking Praluent 75 MG/ML Solution Auto-injector as directed Subcutaneous Taking Aspir-Low 81 MG Tablet Delayed Release 1 tablet Orally Once a day Taking Albuterol Sulfate HFA 108 (90 Base) MCG/ACT Aerosol Solution 1 puff as needed Inhalation every 4 hrs Taking Nitrostat 0.4 MG Tablet Sublingual as directed Sublingual for chest pain may repeat every 5 min times 3 Taking Omeprazole 20 MG Capsule Delayed Release TAKE 1 CAPSULE BY MOUTH EVERY DAY 30 MINUTES BEFORE MORNING MEAL Taking DULoxetine HCl 60 MG Capsule Delayed Release Particles TAKE 1 CAPSULE BY MOUTH EVERY DAY FOR 30 DAYS Not- Taking/PRNEscitalopram Oxalate 10 MG Tablet 1 tablet Orally Once a day Ocuflox 0.3 % Solution 1 drop into affected eye Ophthalmic Four times a day Vitamin D 50 MCG (2000 UT) Tablet 1 tablet Orally Once a day Ocuflox 0.3 % Solution 1 drop into affected eye Ophthalmic Four times a day Tylenol 8 Hour 650 MG Tablet Extended Release 2 tablets as needed Orally every 8 hrs ProAir RespiClick 108 (90 Base) MCG/ACT Aerosol Powder Breath Activated 2 puffs as needed Inhalation every 6 hrs Diprolene AF 0.05 % Cream 1 application to affected area Externally Once a day Valtrex 1 GM Tablet 1 tablet Orally every 8 hours ProAir HFA 108 (90 Base) MCG/ACT Aerosol Solution 2 puffs as needed Inhalation every 4 hrs Medication List reviewed and reconciled with the patientNot-Taking/PRN Escitalopram Oxalate 10 MG Tablet 1 tablet Orally Once a day Not-Taking/PRN Ocuflox 0.3 % Solution 1 drop into affected eye Ophthalmic Four times a day Not- Taking/PRN Vitamin D 50 MCG (1999 UT) Tablet 1 tablet Orally Once a day Not-Taking/PRN Ocuflox 0.3 % Solution 1 drop into affected eye Ophthalmic Four times a day Not- Taking/PRN Tylenol 8 Hour 650 MG Tablet Extended Release 2 tablets as needed Orally every 8 hrs Not-Taking/PRN ProAir RespiClick 108 (90 Base) MCG/ACT Aerosol Powder Breath Activated 2 puffs as needed Inhalation every 6 hrs Not-Taking/PRN Diprolene AF 0.05 % Cream 1 application to affected area Externally Once a day Not-Taking/PRN Valtrex 1 GM Tablet 1 tablet Orally every 8 hours Not-Taking/PRN ProAir HFA 108 (90 Base) MCG/ACT Aerosol Solution 2 puffs as needed Inhalation every 4 hrs Medication List reviewed and reconciled with the patient * Allergies:?Simvastatin: myal giaLipitor: myalgiayes[Allergies Verified] Objective: * Vitals:?Ht: 65, Wt: 161, BMI :26.79, BP:112/64, Wt-k.03. weight is down 2 pounds since 09-16-24. * Examination: ???General Examination: ?GENERAL APPEARANCE:?alert, well hydrated, in no distress.?HEAD:?normocephalic.?SKIN:?good turgor.?HEART:?no murmurs, rubs, gallops.?LUNGS:?no wheezes, rales, rhonchi, good air movement, clear to auscultation bilaterally.?NEUROLOGIC:?dtr's good strength testing good..? Assessment: * Assessment: 1.?Lumbar disc disease with radiculopathy - M51.16 (Primary)??? Plan: * Treatment: * Procedure Codes:? * * Sign off status: Completed true * Provider:?Brandno Phelan MD Date:?0 12/17/2024 Generated for Glenis ribeiro/Brianna/Cheikh on:?01/07/2025 12:05 PM EST History and Physical Notes * HPI (History of Present Illness) Category Sub-Category Detail Notes Category Not es Symptom(s) patient is a 79 yo female with complaint of back pain, requesting referral to Dr Santana Examination Category Sub-Category Detail Notes Category Not es General Examination GENERAL APPEARANCE: alert, w ell hydrated, in no distress HEAD: normocephalic HEART: no murmurs, rubs, ga llops LUNGS: no wheezes, rales, r honchi, good air movement, clear to auscultation bilaterally NEUROLOGIC: dtr's good strength testing good. SKIN: good turgor Consultation Request Notes Referral Date Referring Provider Referred Provider Not es 12/17/2024 Brandon Phelan Dennis lumbar disc disease
--- OUTSIDE RECORDS SUMMARY | 2025-01-07 12:05 | XMS_ITS ---
Author Organization [facility] Address [address] [place] [id number] Care Team Providers Care Show Host/Hostess Name Role Phone Brandon Phelan MD Primary Care Provider Roque Monterroso Unavailable [phone] ALLERGIES No Known Allergies REASON FOR VISIT Patient presents today for a recall colonoscopy MEDICATIONS Medication SIG (Take, Route, Frequency, Duration) Notes Start Date End Date Status Omeprazole 20 MG Oral for 90 A ctive Aspir-81 Active Rosuvastatin Calcium 10 MG Oral for 90 Active Cymbalta Active SOCIAL HISTORY Tobacco Use: Social History Observation Description Date Details (start date - stop date) Never Smoker NA - NA Sex Assigned At : Social History Observation Description Sex Assigned At Unknown Tobacco Use/Smoking Question Answer Notes Patient is a nonsmoker Alcohol Screen Question Answer Notes Did you have a drink contain ing alcohol in the past year? Yes Points 3 Interpretation Positive How often did you have 6 or more drinks on one occasion in the past year? Never (0 point) How many drinks did you have on a typical day when you were drinking in the past year? 1 or 2 drinks (0 point) How often did you have a dri nk containing alcohol in the past year? 2 to 3 times a week (3 points) PROBLEMS Problem Type ICD Code Onset Dates Problem Status W/U Status Risk SNOMED Code Notes Problem Colon cancer screening (Z12.11) Active confirmed Colon cancer screening (281494691) Problem Aspirin long-term use (Z79.82) Active confirmed Long-term current use of aspirin (4144657663468 03) Problem Encounter for other preprocedural examination (Z01.818) Active confirmed Pre-procedure evaluation check (629100902) VITAL SIGNS BMI 26.31 kg/m2 03/09/2024 Blood pressure systolic 00 mm Hg 03/09/20 24 Blood pressure diastolic 00 mm Hg 024 Height 66 in 03/09/2024 Weight 163 lbs 03/09/2024 Encounters Encounter Location Date Provider Diagnosis [facility] [address] [place] [address] 03/09/2024 Roque Wright Colon cancer screeni ng Z12.11 ; Encounter for other preprocedural examination Z01.818 and Aspirin long-term use Z79.82 ASSESSMENTS Encounter Date Diagnosis Assessment Notes Treatment Notes Treatment Clinical Notes 03/09/2024 Colon cancer screening (ICD-10 - Z12.11) Stop aspirin for 1 week before the colonoscopy 03/09/2024 Encounter for other preprocedural examination (ICD-10 - Z01.818) 03/09/2024 Aspirin long-term use (ICD-10 - Z79.82) PLAN OF TREATMENT Treatment Notes Assessment Notes Colon cancer screening Stop aspirin for 1 week before the colonoscopy Future Test Test Name Order Date COLONOSCOPY 03/09/2024 Next Appt Details Follow Up: prn, Reason: Progress Notes * Examination Category Sub-Category Detail Notes General Examination GENERAL APPEARANCE: pleasant , well nourished, well developed, in no acute distress EYES: sclera non-icteric NECK/THYROID: no cervical lymphade nopathy, neck supple HEART: S1, S2 normal LUNGS: clear to auscultatio n bilaterally ABDOMEN: normal bowel sounds, no guarding or rigidity, no hepatosplenomegaly, no masses palpable, soft, nontender, nondistended. NEUROLOGIC: alert and oriented SKIN: nonjaundiced, no spi heidi angiomata. EXTREMITIES: no edema ORAL CAVITY: mucosa moist
--- OUTSIDE RECORDS SUMMARY | 2025-01-07 12:06 | XMS_ITS ---
Author Organization [facility] Address [address] [place] [address] Care Team Providers Care Government Affairs Researcher Name Role Phone Brandon Phelan MD Primary Care Provider Roque Monterroso Unavailable [phone] REASON FOR VISIT sceening PROBLEMS Problem Type ICD Code Onset Dates Problem Status W/U Status Risk SNOMED Code Notes Problem Diverticulosis of large intestine without perforation or abscess without bleeding (K57.30) Active confirmed Diverticul ar disease of colon (603247663) Encounters Encounter Location Date Provider Diagnosis [facility] [address] [place], [place] [phone] 09/06/2024 Roque Wright Colon cancer scree anay Z12.11 ; Personal history of colonic polyps Z86.0100 ; Diverticulosis of large intestine without perforation or abscess without bleeding K57.30 and Other hemorrhoids K64.8 ASSESSMENTS Encounter Date Diagnosis Assessment Notes Treatment Notes Treatment Clinical Notes 09/06/2024 Colon cancer screening (ICD-10 - Z12.11) 09/06/2024 Personal history of colonic polyps (ICD-10 - Z86.0100) 09/06/2024 Diverticulosis of large intestine without perforation or abscess without bleeding (ICD-10 - K57.30) 09/06/2024 Other hemorrhoids (ICD-10 - K64.8) PLAN OF TREATMENT No Information
--- OUTSIDE RECORDS SUMMARY | 2025-01-07 12:06 | XMS_ITS ---
Author Organization Brandon Phelan MD Address [address] [place] [phone] Care Team Providers Care Bench Assembler Name Role Phone Brandon Phelan Primary Care Provider Results Component Value Reference Range Notes Complete Blood Count Auto Di ff (Not yet reviewed by provider) Interpretation: Performing Lab:[facility], [address] [place] [phone] Notes/Report: White Blood Count 8.4 4.8-10.8 X10*3/uL Red Blood Count 4.38 4.20-5.50 X10*6/uL Hemoglobin 13.6 12.0-16.0 g/dl Hematocrit 42.2 37.0-47.0 % Mean Corpuscular Volume 96.3 80.0-98.0 fL Mean Corpuscular Hemoglobin 31.1 27.0-33.0 pg Mean Corpuscular HGB Conc 32.2 31.0-35.0 g/dl Red Cell Distribution Width 13.1 11.0-16.0 % Platelet Count 264 160-400 X10*3/uL Mean Platelet Volume 9.6 9.4-12.3 fL Neutrophils Percent Auto 52.5 45-73 % Imm Gran Pct Auto 0.6 0.0-0.4 % Lymphocytes Percent Auto 33.6 20-40 % Monocytes Percent Auto 8.2 2-11 % Eosinophils Percent Auto 4.1 0-4 % Basophils Percent Auto 1.0 0-2 % NRBC Pct Auto 0.0 0.0-0.2 /100WBC Neutrophils Absolute Auto 4.4 2.0-8.3 x10*3/u L Imm Gran Abs Auto 0.05 0.00-0.03 X10*3/uL Lymphocytes Absolute Auto 2.8 1.2-4.9 X10*3/u L Monocytes Absolute Auto 0.7 0.1-1.2 X10*3/uL Eosinophils Absolute Auto 0.3 0.0-0.4 X10*3/u L Basophils Absolute Auto 0.1 0.0-0.2 X10*3/uL NRBC Abs Auto 0.000 0.0-0.012 X10*3/uL Comprehensive [place]. Panel Fa st (Not yet reviewed by provider) Interpretation: Performing Lab:[facility], [address] [place] [phone] Notes/Report: Sodium 142 135-145 mmol/L Potassium 4.7 3.3-5.1 mmol/L Chloride 106 96-108 mmol/L Carbon Dioxide 29 22-29 mmol/L Anion Gap 12 12-20 Blood Urea Nitrogen 19 9-16 mg/dL Creatinine 0.81 0.5-1.4 mg/dL Estimated Glomerular Filt Rate > 60 Chronic Kidney Disease: Estimated GFR < 60 mL/min/1.73m2 Severe Kidney Disease: Estimated GFR < 15 mL/min/1.73m2 Glucose Fasting 86 60-99 mg/dL Calcium 9.7 8.4-10.2 mg/dL Bilirubin Total 0.3 0.0-1.0 mg/dL Aspartate Amino Transferase 23 5-31 U/L Alanine Aminotransferase 21 0-31 U/L Total Protein 7.6 6.5-8.0 g/dL Albumin Level 4.2 3.5-5.0 g/dL Alkaline Phosphatase 82 39-117 U/L Lipid Panel (Not yet reviewe d by provider) Interpretation: Performing Lab:[facility], [address] [place] [phone] Notes/Report: Triglycerides 101 <150 mg/dL Desirable Triglyceride: less than 150 mg/dL Borderline High Triglyceride 150-199 mg/dL High Triglyceride: 200-499 mg/dL Very High Triglyceride: greater than or equal to 5OO mg/dL Cholesterol 155 <200 mg/dL Desirable Cholesterol: less than 200 mg/dL Borderline High Cholesterol: 200-239 mg/dL High Cholesterol: greater than 239 mg/dL LDL Cholesterol Calculated 73 <100 mg/dL Desirable LDL: less than 100 mg/dL Near Optimal/Above Optimal LDL: 110-129 mg/dL Borderline High LDL: 130-159 mg/dL High LDL: 160-189 mg/dL Very High LDL: greater than or equal to 190 mg/dL HDL Cholesterol 62 >40 mg/dL Desirable HDL: greater than 40 mg/dL Note: This HDL assay may give artificially low results in patients with liver disease. Vitamin D 25-OH Total (Not y et reviewed by provider) Interpretation: Performing Lab:[address] [phone] Notes/Report: Vitamin D 25-OH Total 59.7 >30 ng/mL Health Based Reference Values* < 20 ng/mL Deficient 20-30 ng/mL Insufficient > 30 ng/mL Sufficient *José SMITH. N Engl J Med. 2007;357:266-280 Care must be taken in interpreting Vitamin D results from different laboratories and methodologies. Published data demonstrated that results from patients undergoing hemodialysis may show a negative bias when tested with various automated 25-OH vitamin D assays when compared to LC-MS/MS. When testing samples from patients whose predominant form of Vitamin D is Vitamin D2, such as patients receiving Vitamin D2 supplementation, results that are subtherapeutic should be confirmed with another method such as LC-MS/MS. Hemoglobin A1c (Not yet revi ewed by provider) Interpretation: Performing Lab:[facility], [address] [place] [phone] Notes/Report: Hemoglobin A1c % 5.3 <6.0 % Hemoglobin A1C Reference Range Adults: 4.8 - 6.0 % Non diabetic: < 6.0 % Goal: < 7.0 % Additional Action Suggested: > 8.0 % Note: Hemoglobin A1c results are invalid for patients with abnormal amounts of HbF. Blood transfusions may impact the HbA1c concentration in the patient sample. Estimated Average Glucose 105 eAG = Estimated average glucose which is %A1C expressed as average glucose, using the formula of the G5Q-Avxekum Average Glucose study (ADAG), Diabetes Care, Vol.31,#8, Jun. 2007 REASON FOR VISIT FASTING LABS Encounters Encounter Location Date Provider Diagnosis Brandon Phelan MD [address] [place] [address] Drive [address] [place], [place] [phone] 01/07/2025 Brandon Phelan Blood tests for rout ine general physical examination Z00.00 ; Prediabetes R73.09 ; Pure hypercholesterolemia E78.00 ; Lymphocytosis D72.820 and Vitamin D deficiency E55.9 Assessments Encounter Date Diagnosis (ICD Code) Assessment Notes Treatment Notes Treatment Clinical Notes Section Notes 01/07/2025 Blood tests for rout ine general physical examination (ICD-10 - Z00.00) 01/07/2025 Prediabetes (ICD-10 - R73.09) 01/07/2025 Pure hypercholesterolemia (ICD-10 - E78.00) 01/07/2025 Lymphocytosis (ICD-1 0 - D72.820) 01/07/2025 Vitamin D deficiency (ICD-10 - E55.9) Plan Of Treatment Pending Test Test Name Order Date Complete Blood Count Auto Diff 5 Comprehensive [place]. Panel Fast 5 Lipid Panel 01/07/2025 Vitamin D 25-OH Total 01/07/2025 Microalbumin, Random 01/07/2025 Hemoglobin A1c 01/07/2025 UA ClnCatch+Micro w/rflx Cult 01/07/2025 Next Appt Details Provider Name:Brandon mcrae, 01/14/2025 08:00:00 AM, [address] [place] [address] Drive, [address], [place], [place], [phone], Progress Notes * Ida ROMO ADOB: 5 (79 yo F)Acc No.[id number]:01/07/2025 Progress Note Patient:?Ida ROMO Provider:?Brandon Phelan MD :1945???Age:79 Y???Sex:Female D ate:01/07/2025 Address:[address] [facility], [id number] Subjective: * Chief Complaints: * ???1. FASTING LABS. * Medical History:? Objective: * Vitals:? Assessment: * Assessment: 1.?Blood tests for routine g eneral physical examination - Z00.00 (Primary)???2.?Prediabetes - R73.09???3.?Pure hypercholesterolemia - E78.00???4.?Lymphocytosis - D72.820???5.?Vitamin D deficiency - E55.9??? Plan: * Treatment: 2.?Prediabetes?LAB: Complete Blood Count Auto Diff (Collection Date & Time - 01/07/2025 07:30 AM) ?LAB: Comprehensive [place]. Panel Fast (Collection Date & Time - 01/07/2025 07:30 AM) ?LAB: Lipid Panel (Collection Date & Time - 01/07/2025 07:30 AM) ?LAB: Vitamin D 25-OH Total (Collection Date & Time - 01/07/2025 07:30 AM) ?LAB: Microalbumin, Random ?LAB: Hemoglobin A1c (Collection Date & Time - 01/07/2025 07:30 AM) ?LAB: UA ClnCatch+Micro w/rflx Cult 3.?Pure hypercholesterolemia ?LAB: Complete Blood Count Auto Diff (Collection Date & Time - 01/07/2025 07:30 AM) ?LAB: Comprehensive [place]. Panel Fast (Collection Date & Time - 01/07/2025 07:30 AM) ?LAB: Lipid Panel (Collection Date & Time - 01/07/2025 07:30 AM) ?LAB: Vitamin D 25-OH Total (Collection Date & Time - 01/07/2025 07:30 AM) ?LAB: Microalbumin, Random ?LAB: Hemoglobin A1c (Collection Date & Time - 01/07/2025 07:30 AM) ?LAB: UA ClnCatch+Micro w/rflx Cult 4.?Lymphocytosis?LAB: Complete Blood Count Auto Diff (Collection Date & Time - 01/07/2025 07:30 AM) ?LAB: Comprehensive [place]. Panel Fast (Collection Date & Time - 01/07/2025 07:30 AM) ?LAB: Lipid Panel (Collection Date & Time - 01/07/2025 07:30 AM) ?LAB: Vitamin D 25-OH Total (Collection Date & Time - 01/07/2025 07:30 AM) ?LAB: Microalbumin, Random ?LAB: Hemoglobin A1c (Collection Date & Time - 01/07/2025 07:30 AM) ?LAB: UA ClnCatch+Micro w/rflx Cult 5.?Vitamin D deficiency?LAB: Complete Blood Count Auto Diff (Collection Date & Time - 01/07/2025 07:30 AM) ?LAB: Comprehensive [place]. Panel Fast (Collection Date & Time - 01/07/2025 07:30 AM) ?LAB: Lipid Panel (Collection Date & Time - 01/07/2025 07:30 AM) ?LAB: Vitamin D 25-OH Total (Collection Date & Time - 01/07/2025 07:30 AM) ?LAB: Microalbumin, Random ?LAB: Hemoglobin A1c (Collection Date & Time - 01/07/2025 07:30 AM) ?LAB: UA ClnCatch+Micro w/rflx Cult * Procedure Codes:?86647 VENIP UNCT, ROUTINE* * * The named appointment provid er may or may not be the originator of this progress note, and it is not deemed complete until electronically signed by the appointment provider. Sign off status: Pending * Provider:?Brandon Phelan MD Date:?0 01/07/2025 Generated for Glenis ribeiro/Brianna/Jadielitting on:?01/07/2025 12:06 PM EST
--- OUTSIDE RECORDS SUMMARY | 2025-01-07 12:06 | XMS_ITS ---
Author Organization [facility] Address [address] [place] [phone] Care Team Providers Care Coiler Name Role Phone Brandon Phelan MD Primary Care Provider Roque Monterroso [phone] REASON FOR VISIT sceening Encounters Encounter Location Date Provider Diagnosis [facility] [place] [address] [place], [place] [phone] 07/05/2024 Roque Wright PLAN OF TREATMENT No Information
--- OUTSIDE RECORDS SUMMARY | 2025-01-07 12:06 | XMS_ITS | Patient Health Record ---
Author Organization [facility] Address [address] [place] [address] Care Team Providers Care Blood And Plasma Laboratory Assistant Name Role Phone Brandon Phelan MD Primary Care Provider Roque Monterroso [phone] ALLERGIES No Known Allergies REASON FOR REFERRAL No Information MEDICATIONS Medication SIG (Take, Route, Frequency, Duration) Notes Start Date End Date Status Omeprazole 20 MG Oral for 90 A ctive Aspir-81 Active Rosuvastatin Calcium 10 MG Oral for 90 Active Cymbalta Active SOCIAL HISTORY Sex Assigned At : Social History Observation Description Sex Assigned At Unknown PROBLEMS Problem Type ICD Code Onset Dates Problem Status W/U Status Risk SNOMED Code Notes Problem Colon cancer screening (Z12.11) Active confirmed Colon can cer screening (362774622) Problem Encounter for other preprocedural examination (Z01.818) Active confirmed Pre-procedure evaluation check (254454714) Problem Diverticulosis of large intestine without perforation or abscess without bleeding (K57.30) Active confirmed Diverticul ar disease of colon (264079764) Problem Aspirin long-term use (Z79.82) Active confirmed Long-term current use of aspirin (69702525460113 3) VITAL SIGNS Blood pressure diastolic 00 mm Hg 03/09/2024 Height 66 in 03/09/2024 Blood pressure systolic 00 mm Hg 03/09/2024 Weight 163 lbs 03/09/2024 BMI 26.31 kg/m2 03/09/2024 Encounters Encounter Location Date Provider Diagnosis [facility] [place] [address] [place] [phone] 07/05/2024 Roque Wright [facility] [place] [address] [place] [phone] 09/06/2024 Roque Wright Colon cancer screeni ng Z12.11 ; Personal history of colonic polyps Z86.0100 ; Diverticulosis of large intestine without perforation or abscess without bleeding K57.30 and Other hemorrhoids K64.8 [facility] [address] [place] [address] 03/09/2024 Roque Wright Colon cancer screeni ng Z12.11 ; Encounter for other preprocedural examination Z01.818 and Aspirin long-term use Z79.82 ASSESSMENTS Encounter Date Diagnosis Assessment Notes Treatment Notes Treatment Clinical Notes 09/06/2024 Colon cancer screening (ICD-10 - Z12.11) 09/06/2024 Personal history of colonic polyps (ICD-10 - Z86.0100) 03/09/2024 Colon cancer screening (ICD-10 - Z12.11) Stop aspirin for 1 week before the colonoscopy 03/09/2024 Encounter for other preprocedural examination (ICD-10 - Z01.818) 09/06/2024 Diverticulosis of large intestine without perforation or abscess without bleeding (ICD-10 - K57.30) 03/09/2024 Aspirin long-term us e (ICD-10 - Z79.82) 09/06/2024 Other hemorrhoids (ICD-10 - K64.8) PLAN OF TREATMENT Future Test Test Name Order Date COLONOSCOPY 11/25/2012 COLONOSCOPY 03/09/2024 Insurance Providers Payer Name Payer Address Payer Phone Subscriber Number Group Number Insured Name Patient Relationship to Insured Coverage Start Date Coverage End Date [facility] [address] [address] [place] [id number] GWENDOLYN ROMO Self - patient is the insured MEDICAL (GENERAL) HISTORY Medical History History ICD Code Colonoscopy 06-23-2007 with th e removal of a tubular adenoma; had a hyperplastic polyp removed in 2001 Depression Denies [place],DM,CVA,Lung disease,renal dise ase Colonoscopy in 2012 was negative Fibromyalgia-takes Cymbalta Hyperlipidemia Stable hepatic cysts on U/S in 2021 GERD-neg Barium swallow in 2 023 except for a small hiatal hernia and mild reflux with a Surgical History Surgery Date(Month/Year) Appy Back x 2 JAKE
--- OUTSIDE RECORDS SUMMARY | 2025-01-07 12:07 | XMS_ITS ---
Author Organization Brandon Phelan MD Address [address] [place] [phone] Care Team Providers Care Computer Operations Technician Name Role Phone Brandon Phelan Primary Care Provider [phone] REASON FOR VISIT RESULTS OF MRI Encounters Encounter Location Date Provider Diagnosis Brandon Phelan MD [address] [place], [place] [phone] 10/11/2024 Brandon Phelan Plan Of Treatment Next Appt Details Provider Name:Brandon mcrae, 01/14/2025 08:00:00 AM, [address], [address], [place], [place], [phone], Progress Notes * Ida ROMO ADOB: 5 (79 yo F)Acc No.[id number]:10/11/2024 Patient:?Ida Romo :1945???Age:79 Y???Sex:Female Address: [place] [address] * true * Date:? Generated for Glenis ribeiro/Brianna/eTransmitting on:?01/07/2025 12:06 PM EST
== END 2025-01-07 10:58 | disposition home or self-care (01) ==
LOC: HO.LNP 10:57
PROVIDERS: Visit Provider Internal Medicine
DX: Z00.00 Encounter for general adult medical examination without abnormal findings (principal); R73.03 Prediabetes; E78.00 Pure hypercholesterolemia, unspecified; D72.820 Lymphocytosis (symptomatic); E55.9 Vitamin D deficiency, unspecified
CPT/HCPCS: 80053; 80061; 82306; 83036; 85025

== ENCOUNTER 2025-01-14 11:34 | Outpatient (REF) | payer MEDICARE, SELFPAY ==
[2025-01-14 12:14] LABS: Appearance Urine Clear; Color Urine Yellow; Glucose Urine UA Negative (Negative); Leukocyte Esterase Urine Moderate (2+) (Negative); Nitrite Urine Negative (Negative); PH 5.5 (5.0-9.0); Specific Gravity - Urine 1.015 (1.005-1.025); UMIC TRIGGER UACC YES; Urine Blood Negative (Negative); Urine Ketones Negative (Negative); Urine Protein Negative (Neg-Trace)
[2025-01-14 12:19] LABS: Bacteria Urine None Seen (None Seen); Hyaline Casts Urine 0-2 /LPF (0-2); RBC Urine 0-2 /HPF (0-2); UACC Culture Trigger YES
[2025-01-14 12:37] LABS: Creatinine Urine 68.37 mg/dL; Microalbumin Urine < 5.0 mg/L
--- OUTSIDE RECORDS SUMMARY | 2025-01-14 13:52 | XMS_ITS ---
Author Organization [facility] Address [address] [place] [phone] Care Team Providers Care Aircraft Instrument Repairer Name Role Phone Brandon Phelan MD Primary Care Provider Roque Monterroso Unavailable [phone] ALLERGIES No Known Allergies REASON FOR VISIT [...] screening (Z12.11) Active confirmed Colon cancer screening (016639292) Problem Aspirin long-term use (Z79.82) Active confirmed Long-term current use of aspirin (2872304787749 03) Problem Encounter for other preprocedural examination (Z01.818) Active confirmed Pre-procedure evaluation check (270448276) VITAL SIGNS Blood pressure systolic 00 mm Hg 03/09/20 24 Blood pressure diastolic 00 mm Hg 024 Height 66 in 03/09/2024 Weight 163 lbs 03/09/2024 BMI 26.31 kg/m2 03/09/2024 Encounters Encounter Location Date Provider Diagnosis [facility] [address] [place] [address] 03/09/2024 Roque Wright Colon cancer screeni ng [...]
--- OUTSIDE RECORDS SUMMARY | 2025-01-14 13:52 | XMS_ITS ---
Author Organization [facility] Address [address] [place] [phone] Care Team Providers Care Audit Officer Name Role Phone Brandon Phelan MD Primary Care Provider Roque Monterroso [phone] REASON FOR VISIT sceening Encounters Encounter Location Date Provider Diagnosis [facility] [place] [address] [place], [place] [phone] 07/05/2024 Roque Wright PLAN OF TREATMENT No Information
--- OUTSIDE RECORDS SUMMARY | 2025-01-14 13:52 | XMS_ITS ---
Author Organization Brandon Phelan MD Address [address] [place], [place] [phone] Care Team Providers Care Repair Service Dispatcher Name Role Phone Brandon Phelan Primary Care Provider [phone] Allergies Allergen (clinical drug ingredient) Drug/Non Drug [...] Location Date Provider Diagnosis Brandon Phelan MD [address] [place] [address] [place] [phone] 12/17/2024 Brandon Phelan Lumbar disc disease with [...] Mich Santana Next Appt Details Provider Name:Brandon mcrae, 03/11/2025 07:45:00 AM, [address] [place] [address], Suite [facility], [place], [place], [phone], Provider Name:Brandon mcrae, 07/14/2025 07:15:00 AM, [address] [place] [address], [address] [place] [address], [phone], Provider Name:Brandon mcrae, 01/10/2026 07:15:00 AM, [address] [place] [address], [address] [place] [address], [phone], Provider Name:Brandon mcrae, 01/17/2026 08:30:00 AM, [address] [place] [address], [address] [place] [address], [phone], Progress Notes * Ida ROMO ADOB: 5 (79 yo F)Acc No.[id number]:12/17/2024 Patient:?Ida ROMO Provider:?Brandon Phelan MD :1945???Age:79 Y???Sex:Female D ate:12/17/2024 Address:[address] [id number] Subjective: * Chief Complaints: * ???back pain [...] day Not- Taking/PRN Vitamin D 50 MCG (2000 UT) Tablet [...] * Sign off status: Completed true * Provider:?Brandon Phelan MD Date:?0 12/17/2024 Generated for Glenis ribeiro/Brianna/eTamenasmitting on:?01/14/2025 01:52 PM EST History and Physical Notes * [...]
--- OUTSIDE RECORDS SUMMARY | 2025-01-14 13:52 | XMS_ITS ---
Author Organization [facility] Address [address] [place] [address] Care Team Providers Care Head Kiln Operator Name Role Phone Brandon Phelan MD Primary Care Provider Roque Monterroso Unavailable [phone] REASON FOR VISIT sceening PROBLEMS Problem Type ICD Code Onset Dates Problem Status W/U Status Risk SNOMED Code Notes Problem Diverticulosis of large intestine without perforation or abscess without bleeding (K57.30) Active confirmed Diverticul ar disease of colon (625238415) Encounters Encounter Location Date Provider Diagnosis [facility] [place] [address] [place], [place] [phone] 09/06/2024 Roque Wright Colon cancer scree anay [...]
--- OUTSIDE RECORDS SUMMARY | 2025-01-14 13:53 | XMS_ITS ---
Author Organization Brandon Phelan MD Address [address] [place], [place] [id number] Care Team Providers Care Campus Coordinator Name Role Phone Brandon Phelan Primary Care Provider Allergies Allergen (clinical drug ingredient) Drug/Non Drug Allergy documented on EMR Reaction Allergy Type Onset Date Status Simvastatin myalgia Drug Allergy Activ e atorvastatin Lipitor myalgia Drug Allergy Acti ve Results Component Value Reference Range Notes Microalbumin, Random (Not ye t reviewed by provider) Interpretation: Performing Lab:[facility], [address] [place] [id number] Notes/Report: Creatinine Urine 68.37 Microalbumin Urine < 5.0 Microalbum/Creatinine Ratio Ur TNP <30 ug/mg cr Unable to calculate albumin/creatinine ratio due to low microalbumin or creatinine result. UA ClnCatch+Micro w/rflx Cul t (Not yet reviewed by provider) Interpretation: Performing Lab:[facility], [address] [place] [address], [place] [id number] Notes/Report: Urine, Clean Catch Color Urine Yellow Appearance Urine Clear PH 5.5 5.0-9.0 Glucose Urine UA Negative Negative mg/dL Urine Blood Negative Negative Specific Mcpherson - Urine 1.015 1.005-1.025 Urine Protein Negative Neg-Trace mg/dL Urine Ketones Negative Negative mg/dL Nitrite Urine Negative Negative Leukocyte Esterase Urine Moderate (2+) Negative RBC Urine 0-2 0-2 /HPF WBC Urine 11-20 0-5 /HPF Squamous Epithelial Cell Urine 3-5 0-2 /HPF Bacteria Urine None Seen None Seen Hyaline Casts Urine 0-2 0-2 /LPF REASON FOR VISIT ANNUAL EXAM, Medications Medication SIG (Take, Route, Frequency, Duration) Notes Start Date End Date Status Repatha Active Aspir-Low 81 MG 1 tablet Orally Once a day for 30 day(s) Active Diprolene AF 0.05 % 1 application to affected area Externally Once a day for 30 days 08/13/2016 Not-Taking Valtrex 1 GM 1 tablet Orally ever y 8 hours for 7 days 11/04/2016 Not-Taking ProAir HFA 108 (90 Base) MCG/ACT 2 puffs as needed Inhalation every 4 hrs for 30 days 01/18/2014 Not-Taking Vitamin D 50 MCG (2000 UT) 1 tablet Orally Once a day for 30 day(s) Not-Taking Ocuflox 0.3 % 1 drop into affected eye Ophthalmic Four times a day for 10 days 12/18/2021 Not-Neva ribeiro Ocuflox 0.3 % 1 drop into affected eye Ophthalmic Four times a day for 7 days 06/18/2022 Not-Anatoliy schuster ProAir RespiClick 108 (90 Base) MCG/ACT 2 puffs as needed Inhalation every 6 hrs for 30 days 09/08/2018 Not-Taking Tylenol 8 Hour 650 MG 2 tablets as neede d Orally every 8 hrs Not-Taking Escitalopram Oxalate 10 MG 1 tablet Orally Once a day for 90 days Not-Taking Omeprazole 20 MG TAKE 1 CAPSULE BY MO UTH EVERY DAY 30 MINUTES BEFORE MORNING MEAL for 90 Active DULoxetine HCl 60 MG TAKE 1 CAPSULE BY M OUTH EVERY DAY FOR 30 DAYS for 90 Active Albuterol Sulfate HFA 108 (90 Base) MCG/ACT 1 puff as needed Inhalation every 4 hrs for 30 days 01/29/2022 Active Nitrostat 0.4 MG as directed Sublingu al for chest pain may repeat every 5 min times 3 for 30 days 06/18/2022 Active Social History Tobacco Use: Social History Observation Description Date Details (start date - stop date) Former Smoker NA - NA Tobacco Use/Smoking Question Answer Notes Patient is a former smoker How long has it been since y ou last smoked? > 10 years Additional Findings: Tobacco Non-User Fo rmer smoker, currently using no form of tobacco Alcohol Screen Question Answer Notes Did you have a drink contain ing alcohol in the past year? Yes How often did you have a dri nk containing alcohol in the past year? Monthly or less (1 point) How many drinks did you have on a typical day when you were drinking in the past year? 1 or 2 drinks (0 point) How often did you have 6 or more drinks on one occasion in the past year? 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) Active confirmed Vital Signs Blood pressure systolic 132 mm Hg 01/14/20 25 Blood pressure diastolic 68 mm Hg 025 Height 65 in 01/14/2025 Weight 158 lbs 01/14/2025 BMI 26.29 kg/m2 01/14/2025 weight is down 3 pounds formerly [facility], [facility] 12-17-24 Encounters Encounter Location Date Provider Diagnosis Brandon Phelan MD [address] [place] [address] [place] [phone] 01/14/2025 Brandon Phelan Prediabetes R73.09 ; Annual physical exam Z00.00 ; History of hematuria Z87.448 ; Coronary artery disease of [place] artery of [place]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 pectoris I25.118 ; Muscle cramps R25.2 ; Abdominal pain R10.9 ; Lung disease, bullous J43.9 ; Vitamin D deficiency E55.9 ; Acid reflux K21.9 and Depression screening Z13.31 Assessments Encounter Date Diagnosis (ICD Code) Assessment Notes Treatment Notes Treatment Clinical Notes Section Notes 01/14/2025 Prediabetes (ICD-10 - R73.09) stable, no need for medication at this time 01/14/2025 Annual physical exam (ICD-10 - Z00.00) labs reviewed and discussed with patient 01/14/2025 History of hematuria (ICD-10 - Z87.448) will get u/a, pending results 01/14/2025 Coronary artery disease of [place] artery of [place]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 pectoris (ICD-10 - I25.118) had no obstructive disease 01/14/2025 Muscle cramps (ICD-10 - R25.2) try tonic water with quinine 01/14/2025 Abdominal pain (ICD-10 - R10.9) 01/14/2025 Lung disease, bullous (ICD-10 - J43.9) will get cxr, pending results 01/14/2025 Vitamin D deficiency (ICD-10 - E55.9) stable, will continue current regiment 01/14/2025 Acid reflux (ICD-10 - K21.9) stable, will continue current regiment 01/14/2025 Depression screening (ICD-10 - Z13.31) negative screen Plan Of Treatment Treatment Notes Assessment Notes Prediabetes stable, no need for medication at this time Annual physical exam labs reviewed and d iscussed with patient History of hematuria will get u/a, pendi ng results Coronary artery disease of n ative artery of [place]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 pectoris had no obstructive disease Muscle cramps try tonic water with quinine Lung disease, bullous will get cxr, pend ing results Vitamin D deficiency stable, will contin ue current regiment Acid reflux stable, will continu e current regiment Depression screening negative screen Pending Test Test Name Order Date XR CHEST 2 VIEW PA & LAT 01/14/2025 US ABD 01/14/2025 Microalbumin, Random 01/14/2025 UA ClnCatch+Micro w/rflx Cult 01/14/2025 Next Appt Details Follow Up: 2 Months, Reason: Provider Name:Brandon mcrae, 03/11/2025 07:45:00 AM, [address] [place] [address], [address], [place], [place], [phone], Provider Name:Brandon mcrae, 07/14/2025 07:15:00 AM, [address], [address], [place], [place], [phone], Provider Name:Brandon Villagomez clementina, 01/10/2026 07:15:00 AM, [address], [address], [place], [phone], Provider Name:Brandon Sarah Kaylamelvi clementina, 01/17/2026 08:30:00 AM, [address], [address], [place], [phone], Progress Notes * DAVIDIda ADOB: (79 yo F)Acc No.[id number]:01/14/2025 Progress Notes Patient:?Ida HERNANDEZ Provider:?Brandon Phelan MD :1945???Age:79 Y???Sex:Female D ate:01/14/2025 Address: [address] [place] [place], [id number] Subjective: * Chief Complaints: * ???1. ANNUAL EXAM,. * HPI: ???Depression Screening:?PHQ-9?Little interest or pleasure in doing things?Not at all,?Feeling down, depressed, or hopeless?Not at all,?Trouble falling or staying asleep, or sleeping too much?Not at all,?Feeling tired or having little energy?Not at all,?Poor appetite or overeating?Not at all,?Feeling bad about yourself or that you are a failure, or have let yourself or your family down?Not at all,?Trouble concentrating on things, such as reading the newspaper or watching television?Not at all,?Moving or speaking so slowly that other people could have noticed; or the opposite, being so fidgety or restless that you have been moving around a lot more than usual?Not at all,?Thoughts that you would be better off or of hurting yourself in some way?Not at all,?Total Score?0.?Interpretation and Intervention?Depression Screening Findings?Negative,?Follow-Up for Depression?: review of PHQ-9 found negative result, no follow-up needed.?Communication Needs:?Communication Needs?Does the patient have a hearing impairment?No,?Does the patient have a vision impairment??Yes,?If yes, what is the vision impairment??Glasses,?Does the patient have a cognition impairment??No.?Fall Risk:?History?Have you had any falls with injury in the past year??No,?Have you had two or more falls in the past year??No.?SDOH Questions:?SDOH Questions?In the past year have you been worried about losing housing??No,?In the past year have you or any family members you live with been unable to get any of the following when it was really needed? Check all that apply:?None.?Symptom(s):?dillon is a 79 yo female here for annual visit with review of recent labs and follow up of chronic issues, except for leg is doing well. * ROS:?General/Constitutional:?Patient denies?fatigue, headache.?Change in appetite?denies.?Chills?denies.?Fever?denies.?Ophthalmologic:?Blurred vision?denies.?Discharge?denies.?Pain?denies.?ENT:?Patient denies?decreased sense of smell, any loss of taste, sore throat.?Decreased hearing?denies.?Sore throat?denies.?Swollen glands?denies.?Endocrine:?Cold intolerance?denies.?Excessive thirst?denies.?Heat intolerance?denies.?Weight loss?denies.?Respiratory:?Cough?denies.?Shortness of breath at rest?denies.?Shortness of breath with exertion?denies.?Wheezing?denies.?Cardiovascular:?Chest pain at rest?denies.?Chest pain with exertion?denies.?Irregular heartbeat?denies.?Shortness of breath?denies.?Gastrointestinal:?Abdominal pain?denies.?Change in bowel habits?denies.?Diarrhea?denies.?Nausea?denies.?Rectal bleeding?denies.?Vomiting?denies .?Genitourinary:?Blood in urine?denies.?Difficulty urinating?denies.?Frequent urination?denies.?Urinary incontinence?Denies.?Musculoskeletal:?Patient denies?muscle aches.?Painful joints?denies.?Weakness?denies.?Peripheral Vascular:?Patient denies?red and blue toes.?Skin:?Dry skin?denies.?Itching?denies.?Denies?Mole(s),? changes in moles, new moles or any lesions of concern.?Denies?Photosensitivity.?Rash?denies.?Neurologic:?Dizziness?denies.?Fainting?denies.?Headache?denies.?gets tighteniung in chest when stressed and goes into rt jaw. never tried nitro. lasts 3 or 4 minutes no short of breath. never with 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 * Family History:?Father: dece ased 80 yrs.?Mother: 70 yrs, lung cancer, diagnosed with Cancer.?2 brother(s) , 1 sister(s) - healthy. 1 son(s) , 3 daughter(s) - healthy. .? Denies mental health/substance abuse family history, Denies mental health/substance abuse family history. * Social History:?Tobacco Use:?Tobacco Use/Smoking?Patient is a?former smoker,?How long has it been since you last smoked??> 10 years,?Additional Findings: Tobacco Non-User?Former smoker, currently using no form of tobacco.?Drugs/Alcohol:?Alcohol Screen?Did you have a drink containing alcohol in the past year??Yes,?How often did you have a drink containing alcohol in the past year??Monthly or less (1 point),?How many drinks did you have on a typical day when you were drinking in the past year??1 or 2 drinks (0 point),?How often did you have 6 or more drinks on one occasion in the past year??Never (0 point),?Points?1,?Interpretation?Negative.?Miscellaneous:?Caffeine: yes, frequency:, more than 4 cups per day. Children: yes. Community involvements: yes, active in sports or recreation activities. Exercise: yes, 3-4 times per week swims. Housing: owning. Living with: family. Marital status: . Occupation: retired. Pets: dog. * Medications:?Taking Repatha , Taking Aspir-Low 81 MG Tablet Delayed Release 1 tablet Orally Once a day , Taking Albuterol Sulfate HFA 108 (90 Base) MCG/ACT Aerosol Solution 1 puff as needed Inhalation every 4 hrs , Taking Nitrostat 0.4 MG Tablet Sublingual as directed Sublingual for chest pain may repeat every 5 min times 3 , Taking Omeprazole 20 MG Capsule Delayed Release TAKE 1 CAPSULE BY MOUTH EVERY DAY 30 MINUTES BEFORE MORNING MEAL , Taking DULoxetine HCl 60 MG Capsule Delayed Release Particles TAKE 1 CAPSULE BY MOUTH EVERY DAY FOR 30 DAYS , Not-Taking/PRN Escitalopram Oxalate 10 MG Tablet 1 tablet Orally Once a day , Not-Taking/PRN Ocuflox 0.3 % Solution 1 drop into affected eye Ophthalmic Four times a day , Not-Taking/PRN Vitamin D 50 MCG (2000 UT) Tablet 1 tablet Orally Once a day , Not-Taking/PRN Ocuflox 0.3 % Solution 1 drop into affected eye Ophthalmic Four times a day , Not- Taking/PRN Tylenol 8 Hour 650 MG Tablet Extended Release 2 tablets as needed Orally every 8 hrs , Not-Taking/PRN ProAir RespiClick 108 (90 Base) MCG/ACT Aerosol Powder Breath Activated 2 puffs as needed Inhalation every 6 hrs , Not-Taking/PRN Diprolene AF 0.05 % Cream 1 application to affected area Externally Once a day , Not-Taking/PRN Valtrex 1 GM Tablet 1 tablet Orally every 8 hours , Not-Taking/PRN ProAir HFA 108 (90 Base) MCG/ACT Aerosol Solution 2 puffs as needed Inhalation every 4 hrs , Medication List reviewed and reconciled with the patient * Allergies:?Simvastatin: myal josué, Lipitor: myalgia. Objective: * Vitals:?Ht: 65, Wt: 158, BMI :26.29, BP:132/68, Wt-k.67. weight is down 3 pounds since 12-17-24. * ???Past Orders: ???Lab:Complete Blood Count Auto Diff (Order Date - 01/07/2025) (Collection Date & Time - 01/07/2025 07:30 AM) ? Value Reference Range ?White Blood Count 8.4 4. 8-10.8 - X10*3/uL ?Red Blood Count 4.38 4.20 -5.50 - X10*6/uL ?Hemoglobin 13.6 12.0-16.0 - g/dl ?Hematocrit 42.2 37.0-47.0 - % ?Mean Corpuscular Volume 96.3 80.0-98.0 - fL ?Mean Corpuscular Hemoglobin 31.1 27.0-33.0 - pg ?Mean Corpuscular HGB Conc 32.2 31.0-35.0 - g/dl ?Red Cell Distribution Width 13.1 11.0-16.0 - % ?Platelet Count 264 160-4 00 - X10*3/uL ?Mean Platelet Volume 9.6 9.4-12.3 - fL ?Neutrophils Percent Auto 52.5 45-73 - % ?Imm Gran Pct Auto 0.6 H 0. 0-0.4 - % ?Lymphocytes Percent Auto 33.6 20-40 - % ?Monocytes Percent Auto 8.2 2-11 - % ?Eosinophils Percent Auto 4.1 H 0-4 - % ?Basophils Percent Auto 1.0 0-2 - % ?NRBC Pct Auto 0.0 0.0-0. 2 - /100WBC ?Neutrophils Absolute Auto 4.4 2.0-8.3 - x10*3/uL ?Imm Gran Abs Auto 0.05 H 0. 00-0.03 - X10*3/uL ?Lymphocytes Absolute Auto 2.8 1.2-4.9 - X10*3/uL ?Monocytes Absolute Auto 0.7 0.1-1.2 - X10*3/uL ?Eosinophils Absolute Auto 0.3 0.0-0.4 - X10*3/uL ?Basophils Absolute Auto 0.1 0.0-0.2 - X10*3/uL ?NRBC Abs Auto 0.000 0.0-0. 012 - X10*3/uL ???Lab:Comprehensive Kenefic. P kayley Fast (Order Date - 01/07/2025) (Collection Date & Time - 01/07/2025 07:30 AM) ? Value Reference Range ?Sodium 142 135-145 - mmo l/L ?Bilirubin Total 0.3 0.0- 1.0 - mg/dL ?Aspartate Amino Transferase 23 5-31 - U/L ?Alanine Aminotransferase 21 0-31 - U/L ?Total Protein 7.6 6.5-8. 0 - g/dL ?Albumin Level 4.2 3.5-5. 0 - g/dL ?Alkaline Phosphatase 82 39-117 - U/L ?Potassium 4.7 3.3-5.1 - mmol/L ?Chloride 106 96-108 - mm ol/L ?Carbon Dioxide 29 22-29 - mmol/L ?Anion Gap 12 12-20 - ?Blood Urea Nitrogen 19 H 9-16 - mg/dL ?Creatinine 0.81 0.5-1.4 - mg/dL ?Estimated Glomerular Filt Rate > 60 - ?Glucose Fasting 86 60-9 9 - mg/dL ?Calcium 9.7 8.4-10.2 - m g/dL ???Lab:Lipid Panel (Order Da - 01/07/2025) (Collection Date & Time - 01/07/2025 07:30 AM) ? Value Reference Range ?Triglycerides 101 <150 - mg/dL ?Cholesterol 155 <200 - m g/dL ?LDL Cholesterol Calculated 73 <100 - mg/dL ?HDL Cholesterol 62 >40 - mg/dL ???Lab:Vitamin D 25-OH Total (Order Date - 01/07/2025) (Collection Date & Time - 01/07/2025 07:30 AM) ? Value Reference Range ?Vitamin D 25-OH Total 59.7 >30 - ng/mL ???Lab:Hemoglobin A1c (Order Date - 01/07/2025) (Collection Date & Time - 01/07/2025 07:30 AM) ? Value Reference Range ?Hemoglobin A1c % 5.3 <6. 0 - % ?Estimated Average Glucose 105 - mg/dL * Examination: ???General Examination: ?GENERAL APPEARANCE:?well developed, well nourished, in no acute distress.?HEAD:?normocephalic, atraumatic.?EYES:?pupils equal, round, reactive to light and accommodation, sclera non-icteric.?EARS:?normal.?ORAL CAVITY:?mucosa moist.?THROAT:?clear.?NECK/THYROID:?neck supple, full range of motion, no cervical lymphadenopathy, no bruits.?SKIN:?warm and dry, no suspicious lesions.?HEART:?regular rate and rhythm, S1, S2 normal, no murmurs.?LUNGS:?clear to auscultation bilaterally.?BREASTS:?done by visual basic programmer.?ABDOMEN:?soft, tender in epigastrum, nondistended, bowel sounds present, normal, no organomegaly , no masses palpable.?RECTAL EXAM:?done by visual basic programmer.?FEMALE GENITOURINARY:?done by visual basic programmer.?EXTREMITIES:?no clubbing, cyanosis, or edema.?NEUROLOGIC:?nonfocal, motor strength normal upper and lower extremities, sensory exam intact.? Assessment: * Assessment: 1.?Annual physical exam - Z0 0.00 (Primary)???2.?Prediabetes - R73.09???3.?History of hematuria - Z87.448???4.?Coronary artery disease of [place] artery of [place]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 pectoris - I25.118???5.?Muscle cramps - R25.2???6.?Abdominal pain - R10.9???7.?Lung disease, bullous - J43.9???8.?Vitamin D deficiency - E55.9???9.?Acid reflux - K21.9???10.?Depression screening - Z13.31??? Plan: * Treatment: 2.?Prediabetes?LAB: Microalbumin, Random (Collection Date & Time - 01/14/2025 08:07 AM) ?LAB: UA ClnCatch+Micro w/rflx Cult (Collection Date & Time - 01/14/2025 08:07 AM) Notes: stable, no need for medication at this time?? 3.?History of hematuria?LAB: Microalbumin, Random (Collection Date & Time - 01/14/2025 08:07 AM) ?LAB: UA ClnCatch+Micro w/rflx Cult (Collection Date & Time - 01/14/2025 08:07 AM) Notes: will get u/a, pending results?? 4.?Coronary artery disease o f [place] artery of [place]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 pectoris? Notes: had no obstructive disease?? 5.?Muscle cramps? Notes: try tonic water with quinine?? 6.?Abdominal pain?Imaging: XR CHEST 2 VIEW PA & LAT ?Imaging: US ABD* THE ORDER WILL BE FAXED TO [facility] 7.?Lung disease, bullous?Imaging: XR CHEST 2 VIEW PA & LAT* THE CHEST XRAY ORDER WAS GIV EN TO RICK AND THE US ORDER WILL BE FAXED TO [facility] SCHEDULE Notes: will get cxr, pending results??8.?Vitamin D deficiency? Notes: stable, will continue current regiment??9.?Acid reflux? Notes: stable, will continue current regiment??10.?Depression screening? Notes: negative screen?? * Preventive Medicine:? ??Counseling:?Care goal follow-up plan:?Counseling for abnormal BMI provided?Yes,?Above Normal BMI Follow-up?Giving encouragement to exercise.? * Follow Up:?2 Months * * The named appointment provid er may or may not be the originator of this progress note, and it is not deemed complete until electronically signed by the appointment provider. Sign off status: Pending * Provider:?Brandon Phelan MD Date:?0 01/14/2025 Generated for Glenis ribeiro/Brianna/Jadielitting on:?01/14/2025 01:53 PM EST History and Physical Notes * HPI (History of Present Illness) Category Sub-Category Detail Notes Category Not es Symptom(s) dillon is a [age] yo female here for annual visit with review of recent labs and follow up of chronic issues, except for leg is doing well Depression Screening PHQ-9 Little inte rest or pleasure in doing things: Not at all Feeling down, depressed, or hopeless: No t at all Trouble falling or staying asleep, or sl eeping too much: Not at all Feeling tired or having little energy: N ot at all Poor appetite or overeating: Not at all Feeling bad about yourself o r that you are a failure, or have let yourself or your family down: Not at all Trouble concentrating on thi ngs, such as reading the newspaper or watching television: Not at all Moving or speaking so slowly that other people could have noticed; or the opposite, being so fidgety or restless that you have been moving around a lot more than usual: Not at all Thoughts that you would be b babar off or of hurting yourself in some way: Not at all Total Score: 0 Interpretation and Intervention Depression Yuriy cueva Findings: Negative Follow-Up for Depression: : review of PH Q-9 found negative result, no follow-up needed SDOH Questions SDOH Questions In the past year have you been worried about losing housing?: No In the past year have you or any family members you live with been unable to get any of the following when it was really needed? Check all that apply:: None Fall Risk History Have you had any falls with injury i n the past year?: No Have you had two or more falls in the st year?: No Communication Needs Communication Needs Does the patient have a hearing impairment: No Does the patient have a vision impairmen t?: Yes ?If yes, what is the vision impairment?: Glasses Does the patient have a cognition impair ment?: No Examination Category Sub-Category Detail Notes Category Not es General Examination GENERAL APPEARANCE: well dev eloped, well nourished, in no acute distress HEAD: normocephalic, atrau matic EYES: pupils equal, round, reactive to light and accommodation, sclera non- icteric EARS: normal THROAT: clear NECK/THYROID: neck supple, full ra nge of motion, no cervical lymphadenopathy, no bruits HEART: regular rate and rhy thm, S1, S2 normal, no murmurs LUNGS: clear to auscultatio n bilaterally ABDOMEN: soft, tender in epig astrum, nondistended, bowel sounds present, normal, no organomegaly , no masses palpable NEUROLOGIC: nonfocal, motor stre ngth normal upper and lower extremities, sensory exam intact SKIN: warm and dry, no sana picious lesions EXTREMITIES: no clubbing, cyanosi s, or edema BREASTS: done by visual basic programmer RECTAL EXAM: done by visual basic programmer FEMALE GENITOURINARY: done by visual basic programmer ORAL CAVITY: mucosa moist
--- OUTSIDE RECORDS SUMMARY | 2025-01-14 13:53 | XMS_ITS ---
Author Organization Brandon Phelan MD Address [address] [place] [phone] Care Team Providers Care Copy Messenger Name Role Phone Brandon Phelan Primary Care Provider [phone] Results Component Value Reference Range Notes Complete Blood Count Auto Di ff Reviewed date:01/07/2025 04:39:33 PM Interpretation: Performing Lab:[facility], [address] [place] [phone] Notes/Report: White Blood Count 8.4 4.8-10.8 X10*3/uL [...] NRBC Abs Auto 0.000 0.0-0.012 X10*3/uL Comprehensive Castell. Panel Fa st Reviewed date:01/07/2025 04:38:33 PM Interpretation: Performing Lab:[facility], [address] [place] [phone] Notes/Report: Sodium 142 135-145 mmol/L Potassium 4.7 [...] Alkaline Phosphatase 82 39-117 U/L Lipid Panel Reviewed date:01/07/2025 12:36:07 PM Interpretation: Performing Lab:[facility], [address] [place] [phone] Notes/Report: Triglycerides 101 <150 mg/dL Desirable Triglyceride: [...] with liver disease. Vitamin D 25-OH Total Reviewed date:01/07/2025 12:36:16 PM Interpretation: Performing Lab:[facility], [address] [place] [phone] Notes/Report: Vitamin D 25-OH Total 59.7 >30 [...] another method such as LC-MS/MS. Hemoglobin A1c Reviewed date:01/07/2025 12:35:50 PM Interpretation: Performing Lab:[facility], [address] [facility], [place] [address] Notes/Report: Hemoglobin A1c % 5.3 <6.0 % [...] average glucose, using the formula of the [id number]-[id number] Average Glucose study (ADAG), Diabetes Care, Vol.31,#8, Jun. 2007 REASON FOR VISIT FASTING LABS Encounters Encounter Location Date Provider Diagnosis Brandon Phelan MD [address] [place] [address] [place] [phone] 01/07/2025 Brandon Phelan Blood tests for rout [...] Treatment Pending Test Test Name Order Date Microalbumin, Random 01/07/2025 UA ClnCatch+Micro w/rflx Cult 01/07/2025 Next Appt Details Provider Name:Brandon mcrae, 03/11/2025 07:45:00 AM, [address] [place] [address], [address] [place] [address], [phone], Provider Name:Brandon mcrae, 07/14/2025 07:15:00 AM, [address] [place] [address], Suite [facility], [place], [place], [phone], Provider Name:Brandon Villagomez ier, 01/10/2026 07:15:00 AM, [address], [address], [place], [phone], Provider Name:Brandon Villagomez ier, 01/17/2026 08:30:00 AM, [address], [address], [place], [phone], Progress Notes * Ida ROMO ADOB: (79 yo F)Acc No.[id number]:01/07/2025 Progress Note Patient:?Ida ROMO Provider:?Brandon Phelan MD :1945???Age:79 Y???Sex:Female D ate:01/07/2025 Address: [address] [facility] Subjective: * Chief Complaints: * ???1. FASTING LABS. * Medical History:? Objective: * Vitals:? Assessment: * Assessment: 1.?Blood tests for routine g eneral physical examination - Z00.00 (Primary)???2.?Prediabetes - R73.09???3.?Pure hypercholesterolemia - E78.00???4.?Lymphocytosis - D72.820???5.?Vitamin D deficiency - E55.9??? Plan: * Treatment: 2.?Prediabetes?LAB: Microalbumin, Random ?LAB: UA ClnCatch+Micro w/rflx Cult ?LAB: Complete Blood Count Auto Diff (Collection Date & Time - 01/07/2025 07:30 AM) ?LAB: Comprehensive Castell. Panel Fast (Collection Date & Time - 01/07/2025 07:30 AM) ?LAB: Lipid Panel (Collection Date & Time - 01/07/2025 07:30 AM) ?LAB: Vitamin D 25-OH Total (Collection Date & Time - 01/07/2025 07:30 AM) ?LAB: Hemoglobin A1c (Collection Date & Time - 01/07/2025 07:30 AM) 3.?Pure hypercholesterolemia ?LAB: Microalbumin, Random ?LAB: UA ClnCatch+Micro w/rflx Cult ?LAB: Complete Blood Count Auto Diff (Collection Date & Time - 01/07/2025 07:30 AM) ?LAB: Comprehensive Castell. Panel Fast (Collection Date & Time - 01/07/2025 07:30 AM) ?LAB: Lipid Panel (Collection Date & Time - 01/07/2025 07:30 AM) ?LAB: Vitamin D 25-OH Total (Collection Date & Time - 01/07/2025 07:30 AM) ?LAB: Hemoglobin A1c (Collection Date & Time 01/07/2025 07:30 AM) 4.?Lymphocytosis?LAB: Microalbumin, Random ?LAB: UA ClnCatch+Micro w/rflx Cult ?LAB: Complete Blood Count Auto Diff (Collection Date & Time - 01/07/2025 07:30 AM) ?LAB: Comprehensive Castell. Panel Fast (Collection Date & Time - 01/07/2025 07:30 AM) ?LAB: Lipid Panel (Collection Date & Time 01/07/2025 07:30 AM) ?LAB: Vitamin D 25-OH Total (Collection Date & Time 01/07/2025 07:30 AM) ?LAB: Hemoglobin A1c (Collection Date & Time 01/07/2025 07:30 AM) 5.?Vitamin D deficiency?LAB: Microalbumin, Random ?LAB: UA ClnCatch+Micro w/rflx Cult ?LAB: Complete Blood Count Auto Diff (Collection Date & Time - 01/07/2025 07:30 AM) ?LAB: Comprehensive Castell. Panel Fast (Collection Date & Time - 01/07/2025 07:30 AM) ?LAB: Lipid Panel (Collection Date & Time - 01/07/2025 07:30 AM) ?LAB: Vitamin D 25-OH Total (Collection Date & Time - 01/07/2025 07:30 AM) ?LAB: Hemoglobin A1c (Collection Date & Time - 01/07/2025 07:30 AM) * Procedure Codes:?37991 VENIP UNCT, ROUTINE* * * The named appointment provid er may or may not be the originator of this progress note, and it is not deemed complete until electronically signed by the appointment provider. Sign off status: Pending * Provider:?Brandon Phelan MD Date:?0 01/07/2025 Generated for Glenis ribeiro/Brianna/Jadielitting on:?01/14/2025 01:52 PM EST
--- OUTSIDE RECORDS SUMMARY | 2025-01-14 13:53 | XMS_ITS | Patient Health Record ---
Author Organization [facility] Address [address] [place] [address] Care Team Providers Care Global Account Manager Name Role Phone Brandon Phelan MD Primary Care Provider Roque Monterroso [phone] ALLERGIES No Known Allergies REASON FOR REFERRAL [...] (Z12.11) Active confirmed Colon can cer screening (446801922) Problem Encounter for other preprocedural examination (Z01.818) Active confirmed Pre-procedure evaluation check (441916591) Problem Diverticulosis of large intestine without perforation or abscess without bleeding (K57.30) Active confirmed Diverticul ar disease of colon (399434307) Problem Aspirin long-term use (Z79.82) Active confirmed Long-term current use of aspirin (40922646308257 3) VITAL SIGNS Blood pressure diastolic 00 mm Hg 03/09/2024 Height 66 in 03/09/2024 Blood pressure systolic 00 mm Hg 03/09/2024 Weight 163 lbs 03/09/2024 BMI 26.31 kg/m2 03/09/2024 Encounters Encounter Location Date Provider Diagnosis [facility] Outpatient [address] [place] [id number] 07/05/2024 Roque Wright [facility] Outpatient [address] [place] [phone] 09/06/2024 Roque Wright Colon cancer screeni ng Z12.11 ; Personal history of colonic polyps Z86.0100 ; Diverticulosis of large intestine without perforation or abscess without bleeding K57.30 and Other hemorrhoids K64.8 [facility] [address] [place] [address] 03/09/2024 Roque Wright Colon cancer screeni ng [...] Insured Coverage Start Date Coverage End Date [facility] [address] [address] [place] [address] [phone] [id number] GWENDOLYN ROMO Self - patient is the insured MEDICAL (GENERAL) HISTORY Medical History History ICD Code Colonoscopy 06-23-2007 with th e removal of a tubular adenoma; had a hyperplastic polyp removed in 2001 Depression Denies OH,DM,CVA,Lung disease,renal dise ase Colonoscopy in 2012 was negative Fibromyalgia-takes Cymbalta Hyperlipidemia Stable hepatic cysts on U/S in 2021 GERD-neg Barium swallow in 2 023 except for a small hiatal hernia and mild reflux with a Surgical History Surgery Date(Month/Year) Appy Back x 2 JAKE
== END 2025-01-14 11:35 | disposition home or self-care (01) ==
LOC: HO.LNP 11:34
PROVIDERS: Visit Provider Internal Medicine
DX: R73.03 Prediabetes (principal); Z87.448 Personal history of other diseases of urinary system
CPT/HCPCS: 81001; 82043; 82570; 87086; 87147

== ENCOUNTER 2025-02-22 07:45 | Outpatient (REF) | payer MEDICARE, SELFPAY ==
--- NOTE | ~2025-02-22 | XR_ITS ---
EXAMINATION: XR CHEST 2 VIEWS HISTORY: LUNG DISEASE BULLOUS COMPARISON: Comparison is made with the prior examination dated 09/08/2018. FINDINGS: PA and lateral views of the chest are submitted. There is mild biapical pleural and parenchymal scarring. The lungs are otherwise clear. There is no pleural effusion, pneumothorax, or pulmonary vascular congestion. The heart is normal in size. The aorta is calcified. The bones are intact. XR/XR chest 2V IMPRESSION: No acute cardiopulmonary abnormality. Electronically signed by: Roque Durant MD 02/22/2025 09:25 AM EDT
--- NOTE | ~2025-02-22 | US_ITS ---
CLINICAL HISTORY: ABD PAIN US abdomen complete Comparison: None Findings: The visualized pancreas is normal. The aorta and inferior vena cava are normal caliber. The liver is normal in size with increased echogenicity. 2.6 x 2.4 x 2.5 cm complex cyst of the left lobe. 2.6 x 2 x 2.7 cm complex cyst in the right lobe. There is no intrahepatic bile duct dilatation. The common duct is 1.7 mm in diameter. The gallbladder is normal. There is no sonographic Sales sign. The main portal vein is antegrade. The right kidney is 8.4 cm in length. The left kidney is 9.5 cm in length. The spleen is normal. No ascites. IMPRESSION: Increased echogenicity of the liver favored to represent hepatic steatosis. Complex cysts of the liver. This document has been electronically signed by: Kiara Osorio MD on 02/22/2025 16:25:12
--- OUTSIDE RECORDS SUMMARY | 2025-02-22 07:52 | XMS_ITS ---
Author Organization [facility] Address [address] [place] [address] Care Team Providers Care Enterprise Data Architect Name Role Phone Brandon Phelan MD Primary Care Provider Roque Monterroso Unavailable [phone] Allergies No Known Allergies REASON FOR VISIT Patient presents today for a recall colonoscopy Medications Medication SIG (Take, Route, Frequency, Duration) Notes Start Date End Date Status Omeprazole 20 MG Oral for 90 A ctive Aspir-81 Active Rosuvastatin Calcium 10 MG Oral for 90 Active Cymbalta Active Social History Tobacco Use: Social History Observation Description Date Details (start date - stop date) Never Smoker NA - NA Tobacco Use/Smoking Question [...] to 3 times a week (3 points) Section Notes: Nonsmoker; no sig. alcohol Problems Problem Type SNOMED Code ICD Code Onset Dates Problem Status W/U Status Risk Notes Problem Colon cancer screening (150879087) Colon cancer screening (Z12.11) Active confirmed Problem Long-term current use of aspirin (1525033763946 03) Aspirin long-term use (Z79.82) Active confirmed Problem Pre-procedure evaluation check (469597608) Encounter for other preprocedural examination (Z01.818) Active confirmed Vital Signs Blood pressure systolic 00 mm Hg 03/09/20 24 Blood pressure diastolic 00 mm Hg 024 Height 66 in 03/09/2024 Weight 163 lbs 03/09/2024 BMI 26.31 kg/m2 03/09/2024 Encounters Encounter Location Date Provider Diagnosis [facility] [address] [place] [address] 03/09/2024 Roque Wright Colon cancer screeni ng Z12.11 ; Encounter for other preprocedural examination Z01.818 and Aspirin long-term use Z79.82 Assessments Encounter Date Diagnosis (ICD Code) Assessment Notes Treatment Notes Treatment Clinical Notes Section Notes 03/09/2024 Colon cancer screening (ICD-10 - Z12.11) Stop aspirin for 1 week before the colonoscopy Overall, Wendy appears quite well. While she is 78 years old, she remains in very good clinical health. Therefore, given the distant history of a tubular adenoma, her last colonoscopy being over 10 years ago, and her excellent clinical appearance, I did recommend a colonoscopy for further screening purposes. We did review the rationale for that regard to colon cancer prevention. Full consent was obtained for this, including risks of bleeding and perforation. The procedure will be done with monitored anesthesia care. She was advised to stop aspirin one week for the procedure. Wendy was very comfortable with this plan. Thank you again for allowing me to participate in Wendy's care. I shall continue to keep you advised of her progress. 03/09/2024 Encounter for other preprocedural examination (ICD-10 - Z01.818) Overall, Wendy appears quite well. While she is 78 years old, she remains in very good clinical health. Therefore, given the distant history of a tubular adenoma, her last colonoscopy being over 10 years ago, and her excellent clinical appearance, I did recommend a colonoscopy for further screening purposes. We did review the rationale for that regard to colon cancer prevention. Full consent was obtained for this, including risks of bleeding and perforation. The procedure will be done with monitored anesthesia care. She was advised to stop aspirin one week for the procedure. Wendy was very comfortable with this plan. Thank you again for allowing me to participate in Wendy's care. I shall continue to keep you advised of her progress. 03/09/2024 Aspirin long-term use (ICD-10 - Z79.82) Overall, Wendy appears quite well. While she is 78 years old, she remains in very good clinical health. Therefore, given the distant history of a tubular adenoma, her last colonoscopy being over 10 years ago, and her excellent clinical appearance, I did recommend a colonoscopy for further screening purposes. We did review the rationale for that regard to colon cancer prevention. Full consent was obtained for this, including risks of bleeding and perforation. The procedure will be done with monitored anesthesia care. She was advised to stop aspirin one week for the procedure. Wendy was very comfortable with this plan. Thank you again for allowing me to participate in Wendy's care. I shall continue to keep you advised of her progress. Plan Of Treatment Treatment Notes Assessment Notes Colon cancer screening Stop aspirin for 1 week before the colonoscopy Future Test Test Name Order Date COLONOSCOPY 03/09/2024 Next Appt Details Follow Up: prn, Reason: Progress Notes * GWENDOLYN ROMODOB:1945 (78 yo F)Acc No.[id number]:03/09/2024 Progress Notes Patient:?GWENDOLYN ROMO Provider:?Roque Wright MD :1945???Age:78 Y???Sex:Female D ate:03/09/2024 Address: [address] [facility] Pcp:Brandon Phelan MD Subjective: * Chief Complaints: * ???Patient presents today fo r a recall colonoscopy * HPI: ???incontinence:? I saw Wendy in the office today for evaluation of colorectal cancer screening. ?I last saw Wendy in December 2012, at which time she underwent a negative screening colonoscopy. She had a colonoscopy prior to that in 2006 with the removal of a small tubular adenoma. She presently feels very well. She enjoys a good appetite. She denies any dysphagia, early satiety, nausea, or vomiting. She does have a history of reflux which is currently well controlled on daily omeprazole. She had a barium swallow in 2022 that was negative other than a small hiatal hernia and a description of some mild reflux . She denies any abdominal pain, jaundice, nor weight loss. Her bowel movements have been regular and without any signs of bleeding. She denies any known family history of colon rectal cancer. She does describe that her brother has esophageal cancer. ?Laboratories in December revealed a completely normal CBC, chemistry profile, and liver profile. * ROS:?General/Constitutional:?Change in appetite?denies.?Chills?denies.?Fatigue?denies.?Ophthalmologic:?Patient denies? Negative..?ENT:?Patient denies?Negative..?Respiratory:?Patient denies?No coughing/hemoptysis..?Cardiovascular:?Patient denies? No chest pain/orthopnea..?Gastrointestinal:?Comments?See HPI for details.?Genitourinary:?Patient denies? No dysuria/hematuria..?Musculoskeletal:?Patient denies? No specific arthralgias/myalgias..?Skin:?Patient denies?No rash/pruritus..?Neurologic:?Patient denies? No headaches/seizures..?Psychiatric:?Patient denies?Negative..? * Medical History:? * Surgical History:?Appy Back x 2 JAKE * Hospitalization/Major Diagno stic Procedure:?No Hospitalization History. * Family History:?Father: dece ased, diagnosed with Heart disease.?Mother: .?Siblings: Brother had colon polyps.? No family history of colorectal cancer; brother has esophageal cancer. * Social History:?Tobacco Use:?Tobacco Use/Smoking?Patient is a?nonsmoker.?Drugs/Alcohol:?Alcohol Screen?Did you have a drink containing alcohol in the past year??Yes,?How often did you have 6 or more drinks on one occasion in the past year??Never (0 point),?How many drinks did you have on a typical day when you were drinking in the past year??1 or 2 drinks (0 point),?How often did you have a drink containing alcohol in the past year??2 to 3 times a week (3 points),?Points?3,?Interpretation?Positive.?Miscellaneous:?Marital status: . Occupation: Retired. ???Nonsmoker; no sig. alcohol. * Medications:?TakingCymbalta Aspir-81 Rosuvastatin Calcium 10 MG Tablet Oral Omeprazole 20 MG Capsule Delayed Release Oral Taking Cymbalta Taking Aspir-81 Taking Rosuvastatin Calcium 10 MG Tablet Oral Taking Omeprazole 20 MG Capsule Delayed Release Oral DiscontinuedCeleXA 10mg MoviPrep 100 GM Solution Reconstituted as directed Orally onceMedication List reviewed and reconciled with the patientDiscontinued CeleXA 10mg Discontinued MoviPrep 100 GM Solution Reconstituted as directed Orally onceMedication List reviewed and reconciled with the patient * Allergies:?N.K.D.A.yes[Aller gies Verified] Objective: * Vitals:?Wt: 163 lbs, Ht: 66 in, BMI:26.31 Index, BP: 00/00 mm Hg. * Examination: ???General Examination: ?GENERAL APPEARANCE:?pleasant, well nourished, well developed, in no acute distress.?EYES:?sclera non-icteric.?ORAL CAVITY:?mucosa moist.?NECK/THYROID:?no cervical lymphadenopathy, neck supple.?SKIN:?nonjaundiced, no spider angiomata..?HEART:?S1, S2 normal.?LUNGS:?clear to auscultation bilaterally.?ABDOMEN:?normal bowel sounds, no guarding or rigidity, no hepatosplenomegaly, no masses palpable, soft, nontender, nondistended..?EXTREMITIES:?no edema.?NEUROLOGIC:?alert and oriented.? Assessment: * Assessment: 1.?Encounter for other prepr ocedural examination - Z01.818 (Primary)?2.?Colon cancer screening - Z12.11?3.?Aspirin long-term use - Z79.82? Overall, Wendy appears quite well. While she is 78 years old, she remains in very good clinical health. Therefore, given the distant history of a tubular adenoma, her last colonoscopy being over 10 years ago, and her excellent clinical appearance, I did recommend a colonoscopy for further screening purposes. We did review the rationale for that regard to colon cancer prevention. Full consent was obtained for this, including risks of bleeding and perforation. The procedure will be done with monitored anesthesia care. She was advised to stop aspirin one week for the procedure. Wendy was very comfortable with this plan. Thank you again for allowing me to participate in Wendy's care. I shall continue to keep you advised of her progress. Plan: * Treatment: Notes: Stop aspirin for 1 week before the colonoscopy?? * Procedure Codes:?1036F TOBAC CO NON-BEALL8870 BP SCR NOT PRFRM REC REASON NOS * Preventive Medicine:? ??Counseling:?Care goal follow-up plan:?Above Normal BMI Follow-up?Giving encouragement to exercise,?BMI management provided?Yes.? ??Urinary Incontinence:?Urinary Incontinence?Assessment:?Absent,?Plan of care documented:?No, reason not specified.? * Follow Up:?prn * * Sign off status: Completed true * Provider:?Roque Wright MD Date:? 024 Generated for Glenis ribeiro/Brianna/Jadielitting on:?02/22/2025 07:52 AM EDT History and Physical Notes * HPI (History of Present Illness) Category Sub-Category Detail Notes Category Not es incontinence I saw Wendy in the office today for evaluation of colorectal cancer screening. I last saw Wendy in December 2012, at which time she underwent a negative screening colonoscopy. She had a colonoscopy prior to that in 2006 with the removal of a small tubular adenoma. She presently feels very well. She enjoys a good appetite. She denies any dysphagia, early satiety, nausea, or vomiting. She does have a history of reflux which is currently well controlled on daily omeprazole. She had a barium swallow in 2022 that was negative other than a small hiatal hernia and a description of some mild reflux . She denies any abdominal pain, jaundice, nor weight loss. Her bowel movements have been regular and without any signs of bleeding. She denies any known family history of colon rectal cancer. She does describe that her brother has esophageal cancer. Laboratories in December revealed a completely normal CBC, chemistry profile, and liver profile. Examination Category Sub-Category Detail Notes Category Not es General Examination GENERAL APPEARANCE: pleasant , well [...]
--- OUTSIDE RECORDS SUMMARY | 2025-02-22 07:52 | XMS_ITS | Continuity of Care Document ---
Author Organization [facility] Address [address] [place] [address], [address] [place] [address]- Care Team Providers Care Car Head Liner Installer Name Role Phone Brandon Phelan MD Primary Care Physician [phone] Encounter [facility] Date(s): 01/20/25 - 02/19/25 [facility] [address] [place] [address] Drive [address] [place], [place] [address] Attending Physician: Pamela Scanlon Admitting Physician: Pamela Scanlon Referring Physician: Pamela Scanlon Encounter Type: Triage Allergies, Adverse Reactions, Alerts No Known Allergies Medications aspirin 81 mg oral capsule 1 capsule = 81 mg, By Mouth, Every 24 hours, 0 Refills, Maintenance, 01/20/25 8:48:00 AM EST, Partialfill upon patient request if the prescription is for a schedule II opioid drug. Start Date: 01/20/25 Status: Ordered Repeat number: 1 Cymbalta 20 mg oral enteric coated capsule 1 capsule = 20 mg, By Mouth, 2 times a day, 0 Refills, Maintenance, 04/10/22 11:03:00 AM EDT, Partial fill upon patient request if the prescription is for a schedule II opioid drug. Start Date: 04/10/22 Status: Ordered Repeat number: 1 magnesium oxide 400 mg oral tablet 1 tablet = 400 mg, By Mouth, Daily, 0 Refills, Maintenance, 07/31/22 10:17:00 AM EDT, Partial fill upon patient request if the prescription is for a schedule II opioid drug. Start Date: 07/31/22 Status: Ordered Repeat number: 1 Omeprazole = 20 mg, By Mouth, Daily, 0 Refills, Maintenance, 07/31/22 10:17:00 AM EDT, Partial fill upon patient request if the prescription is for a schedule II opioid drug. Start Date: 07/31/22 Status: Ordered Repeat number: 1 Repatha SureClick 140 mg/mL subcutaneous solution 0 Refills, Maintenance, 01/20/25 8:48:00 AM EST, Partial fill upon patient request if the prescription is for a schedule II opioid drug. Start Date: 01/20/25 Status: Ordered Repeat number: 1 Tylenol 325 mg oral capsule 2 capsule = 650 mg, By Mouth, Every 4 hours, PRN as needed for pain, # 90 capsule, 0 Refills, Maintenance, 04/05/21 12:17:00 PM EDT, Capsule, [id number], Partial fill upon patient request if the prescription is for a schedule II opioid drug., 165.1, cm, 04/05/21 8:07:00 EDT, Height, 76.2, kg, 04/05/21 8:07:00 EDT, Dry Weight Start Date: 04/05/21 Status: Ordered Quantity: 90.0 Unit: capsule Repeat number: 1 Problem List Condition Confirmation Course Effective Dates Status Health St atus Informant Aneurysm Confirmed Active Arthritis Confirmed Active Social History Social History Type Response Smoking Status Former smoker; Tobac co user in household: No entered on: 03/26/16 Sex Sex Representation Female (finding) Implantable Device List Procedure Provider Procedure Date Device Type Site Robotic SI Sacrocolpopexy Laparoscopic a Lashanda Crespo MD 04/05/21 Unknown Pelvis Device Identifier Serial Number Lot or Batch Number Manufacturing Date Expiration Date Distinct Identification Code MRI Safety Implantable Status Assigning Authority Unknown Unknown [id number] Unknown 10/20/23 Unknown Unknown Active Unk nown Radiology * Aurora Madsen: PERFORM Event Display: Radiology Results Scanned Authored Date: [id number] Patient Care team information Care Team Personnel Name: Brandon Phelan MD Position: Reference Physician Member Role: PCP Address: [address] [place] [address] Brandon Phelan MD [place], [place] [address] Telecom: [phone] Name: Uzair Valverde RN Position: [facility] Outreach Member Role: Primary Care Nurse Name: Home Mckay RN Position: [facility] RN Member Role: Primary Care Nurse Name: Kay Salinas RN Position: [facility] Hotshot Superintendent Member Role: Primary Care Nurse Name: Traci Billy RN Position: [facility] RN Member Role: Primary Care Nurse Name: Jessica Lopez RN Position: [facility] RN Member Role: Primary Care Nurse Care Team Related Persons Name: KITA MCCOY Name: CORTEZ ROMO Insurance Providers Guarantor name: GWENDOLYN ROMO [facility] Plan Information #: 1 Payer: [facility] ADV[employer] HMO Member Number: NA Policy Number: NA Group Number: NA
--- OUTSIDE RECORDS SUMMARY | 2025-02-22 07:52 | XMS_ITS ---
Author Organization Brandon Phelan MD Address [address] [place], [place] [phone] Care Team Providers Care Rerolling Machine Operator Name Role Phone Brandon Phelan Primary Care Provider [phone] Allergies Allergen (clinical drug ingredient) Drug/Non Drug [...] kg/m2 12/17/2024 weight is down 2 pounds [facility] e 09-16-24 Encounters Encounter Location Date Provider Diagnosis Brandon Phelan MD [address] [place] [address] [place] [phone] 12/17/2024 Brandon Phelan Lumbar disc disease with [...] Details Provider Name:Brandon mcrae, 03/11/2025 07:45:00 AM, [address] [place] [address], [address] [facility] [facility], [place], [place], [phone], Provider Name:Brandon mcrae, 07/14/2025 07:15:00 AM, [address] [place] [address], [address] [place] [address], [phone], Provider Name:Brandon mcrae, 01/10/2026 07:15:00 AM, [address] [place] [address], [address] [place] [address], [phone], Provider Name:Brandon mcrae, 01/17/2026 08:30:00 AM, [address] [place] [address], [address] [place] [address], [phone], Progress Notes * Ida ROMO ADOB: 5 (79 yo F)Acc No.[id number]:12/17/2024 Patient:?Ida ROMO Provider:?Brandon Phelan MD :1945???Age:79 Y???Sex:Female D ate:12/17/2024 Address:[address] [id number] Subjective: * Chief Complaints: * ???back pain [...] Phelan MD Date:?0 12/17/2024 Generated for Glenis ribeiro/Brianna/eTransmitting on:?02/22/2025 07:52 AM EDT History and Physical [...]
--- OUTSIDE RECORDS SUMMARY | 2025-02-22 07:53 | XMS_ITS | Patient Health Record ---
Author Organization [facility] Address [address] [place] [address] Care Team Providers Care Ms Sql Developer Name Role Phone Brandon Phelan MD Primary Care Provider Roque Monterroso [phone] Allergies No Known Allergies Reason For Referral No Information Medications Medication SIG (Take, Route, Frequency, Duration) Notes Start Date End Date Status Omeprazole 20 MG Oral for 90 A ctive Aspir-81 Active Rosuvastatin Calcium 10 MG Oral for 90 Active Cymbalta Active Problems Problem Type SNOMED Code ICD Code Onset Dates Problem Status W/U Status Risk Notes Problem Colon cancer screening (016508423) Colon cancer screening (Z12.11) Active confirmed Problem Pre-procedure evaluation check (296969071) Encounter for other preprocedural examination (Z01.818) Active confirmed Problem Diverticular disease of colon (148942687) Diverticulosis of large intestine without perforation or abscess without bleeding (K57.30) Active confirmed Problem Long-term current use of aspirin (549806418886375 ) Aspirin long-term use (Z79.82) Active confirmed Vital Signs Blood pressure diastolic 00 mm Hg 03/09/2024 Height 66 in 03/09/2024 Blood pressure systolic 00 mm Hg 03/09/2024 Weight 163 lbs 03/09/2024 BMI 26.31 kg/m2 03/09/2024 Encounters Encounter Location Date Provider Diagnosis [facility] [address] [place] [phone] 09/06/2024 Roque Wright Colon cancer screeni ng Z12.11 ; Personal history of colonic polyps Z86.0100 ; Diverticulosis of large intestine without perforation or abscess without bleeding K57.30 and Other hemorrhoids K64.8 [facility] [address] [place] [address] 03/09/2024 Roque Wright Colon cancer screeni ng [...] to keep you advised of her progress. 09/06/2024 Diverticulosis of large intestine without perforation or abscess without bleeding (ICD-10 - K57.30) 03/09/2024 Aspirin long-term use (ICD-10 - Z79.82) [...] to keep you advised of her progress. 09/06/2024 Other hemorrhoids (ICD-10 - K64.8) Plan Of Treatment Future Test Test Name Order Date COLONOSCOPY 11/25/2012 COLONOSCOPY 03/09/2024 Insurance Providers Payer Name Payer Address Payer Phone Subscriber Number Group Number Insured Name Patient Relationship to Insured Coverage Start Date Coverage End Date [facility] [address] [address] [place] [address] [id number] GWENDOLYN ROMO Self - patient is the insured Medical (General) History Medical History History ICD Code Colonoscopy 06-23-2007 with th e removal of a tubular adenoma; had a hyperplastic polyp removed in 2001 Depression Denies NC,DM,CVA,Lung disease,renal dise ase Colonoscopy in 2012 was negative Fibromyalgia-takes Cymbalta Hyperlipidemia Stable hepatic cysts on U/S in 2021 GERD-neg Barium swallow in 2 023 except for a small hiatal hernia and mild reflux with a Surgical History Surgery Date(Month/Year) Appy Back x 2 JAKE
--- OUTSIDE RECORDS SUMMARY | 2025-02-22 07:53 | XMS_ITS ---
Author Organization [facility] Address [address] [place] [address] Care Team Providers Care Data Center Consultant Name Role Phone Brandon Phelan MD Primary Care Provider Roque Monterroso [phone] REASON FOR VISIT sceening Problems Problem Type SNOMED Code ICD Code Onset Dates Problem Status W/U Status Risk Notes Problem Diverticular disease of colon (026488866) Diverticulosis of large intestine without perforation or abscess without bleeding (K57.30) Active confirmed Encounters Encounter Location Date Provider Diagnosis [facility] [place] [address] [place], [place] [phone] 09/06/2024 Roque Wright Colon cancer scree anay [...] Of Treatment No Information Progress Notes * DEMETRIUSGWENDOLYNDOB:1945 (79 yo F)Acc No.[id number]:09/06/2024 COLON WITH MAC Patient:?DEMETRIUSGWENDOLYN Provider:?Roque Wright MD :1945???Age:79 Y???Sex:Female D ate:09/06/2024 Address:[address] [facility], [id number] Pcp:Brandon Phelan MD Subjective: * Chief Complaints: * ???1. Sceening. * Medical History:? Objective: * Vitals:? Assessment: * Assessment: 1.?Colon cancer screening - Z12.11 (Primary)???2.?Personal history of colonic polyps - Z86.0100???3.?Diverticulosis of large intestine without perforation or abscess without bleeding - K57.30???4.?Other hemorrhoids - K64.8??? Plan: * Treatment: * Procedure Codes:?G0105 COLOR EC CANCR SCR; COLNSCPY HI RISK, 0529F INTRVL 3+YRS PTS CLNSCP DOCD, 0528F RCMND FLW-UP 10 YRS DOCD, Modifiers: 1P * * The named appointment provid er may or may not be the originator of this progress note, and it is not deemed complete until electronically signed by the appointment provider. Sign off status: Pending * Provider:?Roque Wright MD Date:? 024 Generated for Glenis ribeiro/Brianna/Tseringsmitting on:?02/22/2025 07:52 AM EDT
--- OUTSIDE RECORDS SUMMARY | 2025-02-22 07:53 | XMS_ITS ---
Author Organization Brandon Phelan MD Address [address] [place] [phone] Care Team Providers Care Public Relations Specialist Name Role Phone Brandon Phelan Primary Care Provider Results Component Value Reference Range Notes Complete Blood Count Auto Di ff Reviewed date:01/07/2025 04:39:33 PM Interpretation: Performing Lab:[facility], [address] [place] [phone] Notes/Report: White Blood Count 8.4 4.8-10.8 X10*3/uL [...] NRBC Abs Auto 0.000 0.0-0.012 X10*3/uL Comprehensive [place]. Panel Fa st Reviewed date:01/07/2025 04:38:33 PM Interpretation: Performing Lab:[facility], [address] [place] [phone] Notes/Report: Sodium 142 135-145 mmol/L Potassium 4.7 [...] Panel Reviewed date:01/07/2025 12:36:07 PM Interpretation: Performing Lab:[facility], [address] [place] [phone] Notes/Report: Triglycerides 101 <150 mg/dL Desirable Triglyceride: [...] Total Reviewed date:01/07/2025 12:36:16 PM Interpretation: Performing Lab:[facility], [address] [place] [phone] Notes/Report: Vitamin D 25-OH Total 59.7 >30 [...] A1c Reviewed date:01/07/2025 12:35:50 PM Interpretation: Performing Lab:[facility], [address] [facility], [place] [address] Notes/Report: Hemoglobin A1c % 5.3 <6.0 % [...] average glucose, using the formula of the T9S-Bdmvlzf Average Glucose study (ADAG), Diabetes Care, Vol.31,#8, Jun. 2007 REASON FOR VISIT FASTING LABS Encounters Encounter Location Date Provider Diagnosis Brandon Phelan MD [address] [place] [address] [place] [phone] 01/07/2025 Brandon Phelan Blood tests for rout [...] Details Provider Name:Brandon mcrae, 03/11/2025 07:45:00 AM, [address] [place] [address], [address] [place] [address], [phone], Provider Name:Brandon mcrae, 07/14/2025 07:15:00 AM, [address] [place] [address], Suite [facility], [place], [phone], Provider Name:Brandon Villagomez ier, 01/10/2026 07:15:00 AM, [address], [address], [place], [phone], Provider Name:Brandon Villagomez ier, 01/17/2026 08:30:00 AM, [address], [address], [place], [phone], Progress Notes * Ida ROMO ADOB: (79 yo F)Acc No.[id number]:01/07/2025 Progress Note Patient:?Ida ROMO Provider:?Brandon Phelan MD :1945???Age:79 Y???Sex:Female D ate:01/07/2025 Address: [address] [facility] Subjective: * Chief Complaints: * ???1. FASTING [...] Time - 01/07/2025 07:30 AM) ?LAB: Comprehensive [place]. Panel Fast (Collection Date & Time - [...] Time - 01/07/2025 07:30 AM) ?LAB: Comprehensive [place]. Panel Fast (Collection Date & Time - [...] Time - 01/07/2025 07:30 AM) ?LAB: Comprehensive [place]. Panel Fast (Collection Date & Time - [...] Time - 01/07/2025 07:30 AM) ?LAB: Comprehensive [place]. Panel Fast (Collection Date & Time - 01/07/2025 07:30 AM) ?LAB: Lipid Panel (Collection Date & Time - 01/07/2025 07:30 AM) ?LAB: Vitamin D 25-OH Total (Collection Date & Time - 01/07/2025 07:30 AM) ?LAB: Hemoglobin A1c (Collection Date & Time - 01/07/2025 07:30 AM) * Procedure Codes:?17047 VENIP UNCT, ROUTINE* * * The named appointment provid er may or may not be the originator of this progress note, and it is not deemed complete until electronically signed by the appointment provider. Sign off status: Pending * Provider:?Brandon Phelan MD Date:?0 01/07/2025 Generated for Glenis ribeiro/Brianna/Tesringsmitting on:?02/22/2025 07:53 AM EDT
--- OUTSIDE RECORDS SUMMARY | 2025-02-22 07:53 | XMS_ITS ---
Author Organization Brandon Phelan MD Address [address] [place], [place] [phone] Care Team Providers Care Ice Cream Maker Name Role Phone Brandon Phelan Primary Care Provider Allergies Allergen (clinical drug ingredient) Drug/Non Drug Allergy documented on EMR Reaction Allergy Type Onset Date Status Simvastatin myalgia Drug Allergy Activ e atorvastatin Lipitor myalgia Drug Allergy Acti ve Results Component Value Reference Range Notes Microalbumin, Random Reviewed date:01/14/2025 04:26:37 PM Interpretation: Performing Lab:[facility], [address] [place] [phone] Notes/Report: Creatinine Urine 68.37 Microalbumin Urine < 5.0 Microalbum/Creatinine Ratio Ur TNP <30 ug/mg cr Unable to calculate albumin/creatinine ratio due to low microalbumin or creatinine result. UA ClnCatch+Micro w/rflx Cul t Reviewed date:01/14/2025 04:41:00 PM Interpretation: Performing Lab: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) Active confirmed Vital Signs Blood pressure systolic 132 mm Hg 01/14/20 25 Blood pressure diastolic 68 mm Hg 025 Height 65 in 01/14/2025 Weight 158 lbs 01/14/2025 BMI 26.29 kg/m2 01/14/2025 weight is down 3 pounds [facility] 12-17-24 Encounters Encounter Location Date Provider Diagnosis Brandon Phelan MD [address] [place] [address] Drive [address] [place], [place] [phone] 01/14/2025 Brandon Phelan Prediabetes R73.09 ; Annual physical exam Z00.00 ; History of hematuria Z87.448 ; 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.118 ; [...] pending results 01/14/2025 Coronary artery disease of [place] artery of [place]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 pectoris (ICD-10 - [...] artery disease of n ative artery of [place]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 pectoris had no obstructive disease Muscle cramps try tonic water with quinine Lung disease, bullous will get cxr, pend ing results Vitamin D deficiency stable, will contin ue current regiment Acid reflux stable, will continu e current regiment Depression screening negative screen Pending Test Test Name Order Date XR CHEST 2 VIEW PA & LAT 01/14/2025 US ABD 01/14/2025 Next Appt Details Follow Up: 2 Months, Reason: Provider Name:Brandon mcrae, 03/11/2025 07:45:00 AM, [address] [place] [address], [address], [place], [place], [phone], Provider Name:Brandon mcrae, 07/14/2025 07:15:00 AM, [address], [address], [facility] [place], [phone], Provider Name:Brandon Villagomez bridgettr, 01/10/2026 07:15:00 AM, [address], [address], [place], [phone], Provider Name:Brandon Villagomez bridgettr, 01/17/2026 08:30:00 AM, [address] [facility], [address], [place], [phone], Progress Notes * Ida HERNANDEZ ADOB: 5 (79 yo F)Acc No.[id number]:01/14/2025 Progress Notes Patient:?Ida HERNANDEZ A Provider:?Brandon Phelan MD :1945???Age:79 Y???Sex:Female D ate:01/14/2025 [facility] [id number] Subjective: * Chief Complaints: * ???ANNUAL EXAM, * HPI: ???Depression Screening:?PHQ-9?Little interest or pleasure [...] 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 * Medical History:? * Surgical History:? * Hospitalization/Major Diagno stic Procedure:? * Family History:?Father: dece ased 80 yrs.?Mother: [...] status: . Occupation: retired. Pets: dog. * Medications:?TakingRepatha A spir-Low 81 MG Tablet Delayed Release 1 tablet [...] MOUTH EVERY DAY FOR 30 DAYS Taking Repatha Taking Aspir-Low 81 MG Tablet Delayed Release [...] BY MOUTH EVERY DAY FOR 30 DAYS Not-Taking/PRNEscitalopram Oxalate 10 MG Tablet 1 tablet Orally [...] affected eye Ophthalmic Four times a day Not-Taking/PRN Vitamin D 50 MCG (2000 UT) Tablet 1 tablet Orally Once a day Not-Taking/PRN Ocuflox 0.3 % Solution 1 drop into affected eye Ophthalmic Four times a day Not-Taking/PRN Tylenol 8 Hour 650 MG Tablet Extended [...] myalgiayes[Allergies Verified] Objective: * Vitals:?Ht: 65, Wt: 158, BMI [...] Auto 0.000 0.0-0. 012 - X10*3/uL ???Lab:Comprehensive [place]. P [place] Fast (Order Date - 01/07/2025) [...] - m g/dL ???Lab:Lipid Panel (Order Da te - 01/07/2025) (Collection Date & Time - [...] normal, no murmurs.?LUNGS:?clear to auscultation bilaterally.?BREASTS:?done by putty glazer.?ABDOMEN:?soft, tender in epigastrum, nondistended, bowel sounds present, normal, no organomegaly , no masses palpable.?RECTAL EXAM:?done by putty glazer.?FEMALE GENITOURINARY:?done by putty glazer.?EXTREMITIES:?no clubbing, cyanosis, or edema.?NEUROLOGIC:?nonfocal, motor strength normal upper and lower extremities, sensory exam intact.? Assessment: * Assessment: 1.?Annual physical exam - Z0 0.00 (Primary)???2.?Prediabetes - R73.09???3.?History of hematuria - Z87.448???4.?Coronary artery disease of [place] artery of [place]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 pectoris - I25.118???5.?Muscle [...] pending results?? 4.?Coronary artery disease o f [place] artery of [place]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 pectoris? Notes: had no obstructive disease?? 5.?Muscle cramps? Notes: try tonic water with quinine?? 6.?Abdominal pain?Imaging: XR CHEST 2 VIEW PA & LAT ?Imaging: US ABD* THE ORDER WILL BE FAXED TO [facility] 7.?Lung disease, bullous?Imaging: XR CHEST 2 VIEW PA & LAT* THE CHEST XRAY ORDER WAS GIV EN TO RICK AND THE US ORDER WILL BE FAXED TO [facility] SCHEDULE Notes: will get cxr, pending results??8.?Vitamin D deficiency? Notes: stable, will continue current regiment??9.?Acid reflux? Notes: stable, will continue current regiment??10.?Depression screening? Notes: negative screen?? * Procedure Codes:? * Preventive Medicine:? ??Counseling:?Care goal follow-up plan:?Counseling for abnormal BMI provided?Yes,?Above Normal BMI Follow-up?Giving encouragement to exercise.? * Follow Up:?2 Months * * Sign off status: Completed true * Provider:?Brandon Phelan MD Date:?0 01/14/2025 Generated for Uz[employer] Interactive gema/Brianna/eTransmitting on:?02/22/2025 07:53 AM EDT History and Physical Notes * [...] had two or more falls in the year?: No Communication Needs Communication Needs Does [...] cyanosi s, or edema BREASTS: done by putty glazer RECTAL EXAM: done by putty glazer FEMALE GENITOURINARY: done by putty glazer ORAL CAVITY: mucosa moist
--- OUTSIDE RECORDS SUMMARY | 2025-02-22 07:53 | XMS_ITS ---
Author Organization [facility] Address [address] [place] [address] Care Team Providers Care Processor Solid Propellant Name Role Phone Brandon Phelan MD Primary Care Provider Roque Monterroso Unavailable [phone] REASON FOR VISIT sceening Encounters Encounter Location Date Provider Diagnosis [facility] [place] [address] [place], [place] [phone] 07/05/2024 Roque Wright Plan Of Treatment No Information Progress Notes * GWENDOLYN ROMODOB:1945 (79 yo F)Acc No.[id number]:07/05/2024 COLON WITH MAC Patient:?GWENDOLYN ROMO Provider:?Roque Wright MD :1945???Age:78 Y???Sex:Female D ate:07/05/2024 Address: [address] [facility] Pcp:Brandon Phelan MD Subjective: * Chief Complaints: * ???1. Sceening. * Medical History:? Objective: * Vitals:? Assessment: Plan: * Treatment: * * The named appointment provid er may or may not be the originator of this progress note, and it is not deemed complete until electronically signed by the appointment provider. Sign off status: Pending * Provider:?Roque Wright MD Date:? 024 Generated for Glenis ribeiro/Fasharong/eTransmitting on:?02/22/2025 07:52 AM EDT
== END 2025-02-22 07:46 | disposition home or self-care (01) ==
LOC: HO.US 07:45
PROVIDERS: PCP Internal Medicine; Visit Provider Internal Medicine
DX: J43.9 Emphysema, unspecified (principal); R10.9 Unspecified abdominal pain
CPT/HCPCS: 71046; 76700

== ENCOUNTER → 2025-02-22 07:52 | Outpatient (BNV) | payer MEDICARE, SELFPAY | PROVIDERS: PCP Internal Medicine; Visit Provider Radiology Diagnostic Radiology | DX: R10.9 Unspecified abdominal pain (principal); J43.9 Emphysema, unspecified | CPT/HCPCS: 71046; 76700 ==

== ENCOUNTER 2025-03-15 08:56 | Outpatient (AMB) | payer MEDICARE, SELFPAY ==
--- NOTE | 2025-03-15 09:01 | MHC.OFFVIS ---
Vital Signs 03/15/25 09:05 Height 5 ft 6 in Weight 163 lb 9.328 oz BMI 26.4 BP 120/82 Blood Pressure Location Lt brachial Position Sitting Pulse 75 Pulse Source Monitor Intake Visit Reasons: 1 yr /fup Release Specialist Required: No Accompanied by: Sister Allergies atorvastatin [Lipitor] Allergy (Unknown, Verified 09/06/24 07:24) myalgia naproxen [Naprosyn] Allergy (Unknown, Verified 09/06/24 07:24) oral sores simvastatin Allergy (Unknown, Verified 09/06/24 07:24) myalgia crestor/rosuvastatin Adverse Reaction (Intermediate, Uncoded 03/18/24 10:39) myalgias Medication List - Last Reconciled 03/15/25 by James Morley MD aspirin (Adult Low Dose Aspirin) 81 mg PO DAILY duloxetine 60 mg PO DAILY evolocumab (Repatha SureClick) 140 mg subcut Q2W nitroglycerin 0.4 mg sublingual Q5M omeprazole 20 mg PO DAILY HPI Comments Details: Ida returns for follow-up regarding coronary artery disease. In the past, she had reported chest/jaw pain but only at nighttime but nonexertional. Any case, that led to further workup with coronary CTA showing nonobstructive disease. She had reported muscle spasm symptoms and hence statins were switched to Repatha but she still gets muscle spasms and hence most likely non statin related. Last night, she had a sudden episode of heart racing to around 160/Min and that episode lasted for about an hour. Spontaneously improved. Back to normal. No angina or anything else of concern. No exertional symptoms. Exercise The patient reports that she is able to walk and climb stairs without experiencing discomfort or pain. She has not noted any exercise-induced symptoms. She also does water aerobics. [facility] Medical History (Updated 03/15/25 @ 09:27 by James Morley MD) Hiatal hernia GERD (gastroesophageal reflux disease) Hepatic cyst Hyperlipidemia Fibromyalgia Depression Statin intolerance Surgical History Hx of appendectomy H/O colonoscopy History of back surgery Hx of hernia repair Hx of hysterectomy Family History Father No problems noted. Mother No problems noted. Social History Are you a primary auto care center manager to a significant other at home: No Do you presently have visiting nurse or other home services: No Alcohol intake: current Alcohol intake frequency: holidays/special occasions only Patient Tobacco Use Status: Former Tobacco user Review of Systems Const Denies chills, Denies fatigue, Denies fever(s), Denies frequent falls, Denies weakness, Denies weight gain and Denies weight loss ENT Denies dizziness Card Denies chest pain, Denies leg edema, Denies lightheadedness, Reports palpitations, Denies dyspnea and Denies dyspnea on exertion Resp Denies cough, Denies dyspnea and Denies dyspnea on exertion GI Denies hematochezia Musc Denies abnormal gait, Denies muscle weakness, Denies numbness, Denies radiating pain into limb and Denies tingling Neuro Denies abnormal gait, Denies dizziness, Denies frequent falls, Denies numbness, Denies tingling and Denies weakness Endo Denies fatigue and Reports palpitations Physical Exam Vital Signs: Last Vital Signs Pulse 75 03/15/25 09:05 BP 120/82 03/15/25 09:05 BMI result Body Mass Index 26.4 Const General: comfortable and no acute distress Orientation/consciousness: patient oriented x3 HEENT Other: Unremarkable Head: Yes normal to inspection Neck Neck: Yes normal visual inspection Chest Chest palpation & inspection: normal inspection of the chest Resp Auscultation: clear to auscultation bilaterally Cardio Palpation: normal PMI Heart sounds: S1 normal heart sound present, S2 normal heart sound present, no gallops, no murmurs and no rubs GI Palpation (GI): Soft to palpation Back/Spine/Pelvis Other: unremarkable Skin General skin exam: no rashes or lesions noted Neuro General: patient oriented x3 Extrem General: Yes normal to inspection Psych Mental Status: mental status grossly normal Office Procedures EKG Details: EKG with sinus rhythm at 75/Min; no significant ST-T changes and otherwise unremarkable[place] [address]-Rivsfwcaiqujgnsfg, Complete Assessment & Plan Assessment & Plan (1) Atherosclerotic cardiovascular disease: Code(s): I25.10 - Atherosclerotic heart disease of [place] coronary artery without angina pectoris Category: Medical Plan: Coronary CTA from 2021-left main with mild stenosis; LAD, 50% stenosis in the mid to distal portion. Circumflex 50% stenosis. Right coronary artery with suspected about 50% stenosis. Clinically, she has got no angina. She has had longstanding jaw pains of uncertain etiology. Continue Repatha. Lipids are much improved. (2) Statin intolerance: Code(s): Z78.9 - Other specified health status Category: Medical Plan: She still has muscle spasms without statins and hence I am not entirely clear if it is even statin related. Any case, statins have been stopped. (3) Heart palpitations: Code(s): R00.2 - Palpitations Category: Medical Plan: Uncertain etiology. Reviewed the smart watch/smart phone data. There is recording of heart rates in the 160s for about 45 minutes to an hour but rhythm is not clear. Possible atrial fibrillation. Obtain Holter/repeat echocardiogram. Plan Discussion Notes During the visit, I discussed the likelihood of possible atrial fibrillation with the patient based on the episodic nature of her elevated heart rate and palpitations. We reviewed the potential need for a Holter monitor to capture these episodes and the future consideration of anticoagulants if atrial fibrillation is confirmed. I emphasized the importance of echocardiographic assessment given its last use several years ago to ascertain current cardiac function. I advised her to record any notable symptoms and report them. Consent was obtained for the recommended tests, and I explained they were non-invasive, with minimal risk. Anticipatory guidance included watching for further episodes and an immediate return for evaluation should severe symptoms persist. We also reviewed cholesterol management, ensuring she understood the current lower levels are favorable. Patient was informed and verbally consented to the use of an ambient scribe for clinic note documentation during this visit. Orders: Orders ECG 14 day holter monitor Today R00.2 - Palpitations CA echo transthoracic complete Today I25.10 - Atherosclerotic heart disease of [place] coronary artery without angina pectoris Patient Instructions: - Wear the Holter monitor as advised, noting any symptoms of palpitations or irregular heartbeats. - Maintain a symptom diary, including times and descriptions of any cardiac events. - Repeat echocardiogram appointment will be scheduled; ensure attendance. - Avoid strenuous activities or water exposure with the monitor. - Take cholesterol medication regularly and maintain dietary and lifestyle modifications for hyperlipidemia management. - Return immediately if experiencing severe or prolonged symptoms. - Follow up as scheduled to review monitoring and test results. Coding Level of Care Code Est Pt Level 4 (33140) Complex EM visit Add On G2211 Diagnoses Atherosclerotic cardiovascular disease I25.10 Statin intolerance Z78.9 Heart palpitations R00.2 CPT Codes EKG - CPT: 71719-Namuchfzniznezvgm, Complete ([id number])
[2025-03-15 09:05] VITALS: BP 120/82; PULSE 75; BMI 26.4
== END 2025-03-15 09:27 | disposition home or self-care (01) ==
LOC: HO.HCS 08:57
PROVIDERS: PCP Internal Medicine; Visit Provider Internal Medicine
DX: I25.10 Atherosclerotic heart disease of native coronary artery without angina pectoris (principal); Z78.9 Other specified health status; R00.2 Palpitations
CPT/HCPCS: 93010; 99214; G2211

== ENCOUNTER → 2025-03-15 08:56 | Outpatient (BNVA) | payer MEDICARE, SELFPAY | PROVIDERS: PCP Internal Medicine; Visit Provider Internal Medicine | DX: I25.10 Atherosclerotic heart disease of native coronary artery without angina pectoris (principal); R00.2 Palpitations; Z78.9 Other specified health status | CPT/HCPCS: 93005; 99212 ==

== ENCOUNTER → 2025-03-30 08:51 | Outpatient (REF) | payer MEDICARE, SELFPAY ==
--- NOTE | 2025-03-30 08:57 | CA_ITS ---
Transthoracic Echocardiogram Patient (Last, First, Middle): Ida Hernandez A Gender: Female Date of : 1945 Age: 79 Procedure Date: 03/30/2025 Procedure Type: Transthoracic Echocardiogram Location: OP Height: 167.64 cm Weight: 73.94 kg BSA: 1.83 m2 Heart Rate: bpm BP: 120 / 82 mmHg Bone Drier: CHAI Kaur MD: James Morley MD Teachers Aide: Graham Butterfield MD Symptoms: I25.10 - Atherosclerotic heart disease of [place] coronary artery without... Study Quality: Adequate ECG Rhythm: Sinus Conclusions: - 1. Normal LV ejection fraction of 65-70% with grade 1 diastolic dysfunction 2. Trace to mild aortic regurgitation noted 3. Normal RV systolic pressure 4. No gross pericardial effusion Findings Left Ventricle Normal left ventricular size, thickness, and systolic function. The visually estimated ejection fraction is between 65-70%. Spectral Doppler is indicative of an impaired relaxation filling pattern. E/E prime ratio is <8, consistent with normal filling pressures. Evidence suggests grade I (mild) diastolic dysfunction. Right Ventricle Normal right ventricular cavity size and systolic function. Atria Both atria are normal in size. There is no evidence of interatrial shunt. Aortic Valve The aortic valve was not well visualized. There is no aortic valve stenosis. There is mild aortic valve regurgitation. Mitral Valve Normal mitral valve structure and function. There is trace mitral valve regurgitation. There is no mitral valve stenosis. Pulmonic Valve The pulmonic valve was not well visualized. Tricuspid Valve Likely normal tricuspid valve structure and function. There is trace tricuspid valve regurgitation. The right ventricular systolic pressure is normal. The right ventricular systolic pressure is 34 mmHg. Normal right atrial pressure. There is no evidence of pulmonary hypertension. Great Vessels All visible segments of the aorta are normal in size. The pulmonary artery was not well visualized. There is no dilatation of the ascending aorta measuring 3.10 cm. Venous The inferior vena cava is normal in size and collapses greater than 50% with inspiration. Pericardium/Pleural There is no evidence of pericardial effusion. Prior Study Comparison Changes noted compared to prior study dated: 07/18/2022. trace to mild aortic regurgitation noted Measurements 2D Linear Measurements IVSd: 0.90 0.6-0.9/0.6-1.0 cm LVIDd: 4.16 3.9-5.3/4.2-5.9 cm LVIDd Index: 2.27 2.4-3.2/2.2-3.1 cm/m2 LVIDs: 2.69 2.0-3.6 cm LVPWd: 0.87 0.7-1.1 cm Ao Root: 3.30 2.1-3.5 cm LA Diam: 3.10 2.7-3.8/3.0-4.0 cm LAIDs Index: 1.69 1.5-2.3 cm/m2 LV Mass: 142.77 67-162/88-224 g LV Mass Index: 78.01 43-95/49-115 g/m2 LVOT Diam: 2.00 3.0+(-)1.3 cm 2D Systolic Function EF 4C: 65.90 >55% EF 2C: 68.60 >55% EF BiP: 66.30 >55% Mitral Valve MV Pk E: 0.66 MV PK A: 0.75 MV Decel Time: 214.00 E/A: 0.90 E'Lateral: 8.38 E'Medial: 7.72 E/E' Med: 8.50 E/E' Lat: 7.90 PHT: 63.00 MVA PHT: 3.49 Decel Waldo: 3.08 Aortic Valve AoV Pk Jonnie: 1.54 AoV Mn Jonnie: 1.04 AoV VTI: 0.28 AoV Pk Grad: 9.00 Aov Mn Grad: 5.00 CRYS Cont.VTI: 2.95 LVOT LVOT Pk Jonnie: 1.25 LVOT Mn Jonnie: 0.86 LVOT VTI: 0.26 LVOT Pk Grad: 6.00 LVOT Mn Grad: 3.00 LVOT Diam: 2.00 LVOT Area: 3.14 Diastolic Function MV Pk E: 0.66 MV Pk A: 0.75 E/A: 0.90 E'Medial: 7.72 E/E' Med: 8.50 E' Laterial: 8.38 E/E' Lat: 7.90 Right Ventricle TAPSE (mm): 28.50 TVS' Jonnie: 12.30 Tricuspid Valve TR Pk Jonnie: 2.80 TR Pk Grad: 31.00 RA Press: 3.00 RVSP: 34.00 Great Vessels Aorta Ao Root-2D: 3.30 2.0-3.7 cm Ao Asc: 3.10 2.1-3.4 cm Ao Arch: 2.70 Updated in Other Vendor System with Status of Final Graham Butterfield MD electronically signed on 03/31/2025 5:12:35 PM with status of Final
--- OUTSIDE RECORDS SUMMARY | 2025-03-30 09:14 | XMS_ITS ---
Author Organization Brandon Phelan MD Address [address] [place] [id number] Care Team Providers Care Health Underwriter Name Role Phone Brandon Phelan Primary Care Provider Encounters Encounter Location Date Provider Diagnosis Brandon Phelan MD [address] [place] [phone] 03/15/2025 Brandon Phelan Plan Of Treatment Next Appt Details Provider Name:Brandon mcrae, 07/14/2025 07:15:00 AM, [address] [place] [address], [address] [place] [address], [phone], Provider Name:Brandon mcrae, 01/10/2026 07:15:00 AM, [address] [facility], [address] [place] [address] [place], [phone], Provider Name:Brandon Villagomez clementina, 01/17/2026 08:30:00 AM, [address] [facility], [address], [place], [place], [phone], Progress Notes * Ida ROMO ADOB: 5 (79 yo F)Acc No.[id number]:03/15/2025 Patient:?Ida ROMO :1945???Age:79 Y???Sex:Female Address: [place] [address] * true * Date:? Generated for Glenis ribeiro/Brianna/eTamenasmitting on:?03/30/2025 09:14 AM EDT
--- OUTSIDE RECORDS SUMMARY | 2025-03-30 09:14 | XMS_ITS ---
Author Organization [facility] Address [address] [place] [address] Care Team Providers Care Compounder Name Role Phone Brandon Phelan MD Primary Care Provider Roque Monterroso Unavailable [phone] Allergies No Known Allergies REASON FOR VISIT [...] Status Risk Notes Problem Colon cancer screening (Z12.11) Active confirmed Problem Long-term current use of aspirin (7294213629485 03) Aspirin long-term use (Z79.82) Active confirmed Problem Pre-procedure evaluation check (369813206) Encounter for other preprocedural examination (Z01.818) Active confirmed Vital Signs Blood pressure systolic 00 mm Hg 03/09/20 24 Blood pressure diastolic 00 mm Hg 024 Height 66 in 03/09/2024 Weight 163 lbs 03/09/2024 BMI 26.31 kg/m2 03/09/2024 Encounters Encounter Location Date Provider Diagnosis [facility] [address] [place] [address] 03/09/2024 Roque Wright Colon cancer screeni ng [...] Notes * GWENDOLYN ROMODOB:1945 (78 yo F)Acc No.[id number]:03/09/2024 Progress Notes Patient:?GWENDOLYN ROMO Provider:?Roque Wright MD :1945???Age:78 Y???Sex:Female D ate:03/09/2024 Address: [address] [facility] [id number] Pcp:Brandon Phelan MD Subjective: * Chief Complaints: [...] the colonoscopy?? * Procedure Codes:?1036F TOBAC CO [id number] BP SCR NOT PRFRM REC REASON NOS * Preventive Medicine:? ??Counseling:?Care goal follow-up plan:?Above Normal BMI Follow-up?Giving encouragement to exercise,?BMI management provided?Yes.? ??Urinary Incontinence:?Urinary Incontinence?Assessment:?Absent,?Plan of care documented:?No, reason not specified.? * Follow Up:?prn * * Sign off status: Completed true * Provider:?Roque Wright MD Date:? 024 Generated for Glenis ribeiro/Brianna/Tseringsmitting on:?03/30/2025 09:14 AM EDT History and Physical Notes * [...]
--- OUTSIDE RECORDS SUMMARY | 2025-03-30 09:14 | XMS_ITS | Patient Health Record ---
Author Organization [facility] Address [address] [place] [address] Care Team Providers Care Rehabilitation Liaison Name Role Phone Brandon Phelan MD Primary Care Provider Roque Monterroso [phone] Allergies No Known Allergies Reason For Referral No Information Medications Medication SIG (Take, Route, Frequency, Duration) Notes Start Date End Date Status Omeprazole 20 MG Oral for 90 A ctive Aspir-81 Active Rosuvastatin Calcium 10 MG Oral for 90 Active Cymbalta Active Problems Problem Type SNOMED Code ICD Code Onset Dates Problem Status W/U Status Risk Notes Problem Colon cancer screening (591201749) Colon cancer screening (Z12.11) Active confirmed Problem Pre-procedure evaluation check (175062450) Encounter for other preprocedural examination (Z01.818) Active confirmed Problem Diverticulosis o f large intestine without perforation or abscess without bleeding (K57.30) Active confirmed Problem Long-term current use of aspirin (0631317175854 03) Aspirin long-term use (Z79.82) Active confirmed Encounters Encounter Location Date Provider Diagnosis [facility] Outpatient [address] [place] [phone] 09/06/2024 Roque Wright Colon cancer scree anay [...] Insured Coverage Start Date Coverage End Date [facility] [address] [address] [place] [address] [id number] GWENDOLYN ROMO Self - patient is the insured Medical (General) History Medical History History ICD Code Colonoscopy 06-23-2007 with th e removal of a tubular adenoma; had a hyperplastic polyp removed in 2001 Depression Denies [place],DM,CVA,Lung disease,renal dise ase Colonoscopy in 2012 was negative Fibromyalgia-takes Cymbalta Hyperlipidemia Stable hepatic cysts on U/S in 2021 GERD-neg Barium swallow in 2 023 except for a small hiatal hernia and mild reflux with a Surgical History Surgery Date(Month/Year) Appy Back x 2 JAKE
--- OUTSIDE RECORDS SUMMARY | 2025-03-30 09:14 | XMS_ITS ---
Author Organization [facility] Address [address] [place] [address] Care Team Providers Care Heavy Duty Mechanic Name Role Phone Brandon Phelan MD Primary Care Provider Roque Monterroso Unavailable [phone] REASON FOR VISIT sceening Encounters Encounter Location Date Provider Diagnosis [facility] Out[facility] [address] [place], [place] [phone] 07/05/2024 Roque Wright Plan Of Treatment No Information Progress Notes * GWENDOLYN ROMODOB:1945 (79 yo F)Acc No.[id number]:07/05/2024 COLON WITH MAC Patient:?GWENDOLYN ROMO Provider:?Roque Wright MD :1945???Age:78 Y???Sex:Female D ate:07/05/2024 Address: [address] [facility] Pcp:Brandon Phelan MD Subjective: * Chief Complaints: [...] MD Date:? 024 Generated for Glenis ribeiro/Fasharong/eTransmitting on:?03/30/2025 09:13 AM EDT
--- OUTSIDE RECORDS SUMMARY | 2025-03-30 09:15 | XMS_ITS ---
Author Organization Brandon Phelan MD Address [address] [place], [place] [phone] Care Team Providers Care Orthopedic Physical Therapist Name Role Phone Brandon Phelan Primary Care Provider Allergies Allergen (clinical drug ingredient) Drug/Non Drug Allergy documented on EMR Reaction Allergy Type Onset Date Status Simvastatin myalgia Drug Allergy Activ e atorvastatin Lipitor myalgia Drug Allergy Acti ve Results Component Value Reference Range Notes Microalbumin, Random Reviewed date:01/14/2025 04:26:37 PM Interpretation: Performing Lab:[facility], [address] [place] [phone] Notes/Report: Creatinine Urine 68.37 Microalbumin Urine < 5.0 Microalbum/Creatinine Ratio Ur TNP <30 ug/mg cr Unable to calculate albumin/creatinine ratio due to low microalbumin or creatinine result. 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) Active confirmed Vital Signs Blood pressure systolic 132 mm Hg 01/14/20 25 Blood pressure diastolic 68 mm Hg 025 Height 65 in 01/14/2025 Weight 158 lbs 01/14/2025 BMI 26.29 kg/m2 01/14/2025 weight is down 3 pounds formerly [facility] 12-17-24 Encounters Encounter Location Date Provider Diagnosis Brandon Phelan MD [address] [place] [address] Drive [address] [place], [place] [phone] 01/14/2025 Brandon Phelan Prediabetes R73.09 ; Annual physical exam Z00.00 ; History of hematuria Z87.448 ; Coronary artery disease of [place] artery of [place]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 pectoris I25.118 ; [...] pending results 01/14/2025 Coronary artery disease of [place] artery of [place]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 pectoris (ICD-10 - [...] artery disease of n ative artery of [place]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 pectoris had no [...] Up: 2 Months, Reason: Provider Name:Brandon mcrae, 07/14/2025 07:15:00 AM, [address] [place] [address], [address], [place], [place], [phone], Provider Name:Brandon mcrae, 01/10/2026 07:15:00 AM, [address] [place] [address], [address], [facility] [place], [phone], Provider Name:Brandon Villagomez ier, 01/17/2026 08:30:00 AM, [address] [facility], [address], [place], [phone], Progress Notes * Ida HERNANDEZ ADOB: 5 (79 yo F)Acc No.[id number]:01/14/2025 Progress Notes Patient:?Ida HERNANDEZ A Provider:?Brandon Phelan MD :1945???Age:79 Y???Sex:Female D ate:01/14/2025 Address: [address] [place] [phone] Subjective: * Chief Complaints: * ???ANNUAL [...] Auto 0.000 0.0-0. 012 - X10*3/uL ???Lab:Comprehensive [place]. P kayley Fast (Order Date - 01/07/2025) [...] m g/dL ???Lab:Lipid Panel (Order Da te 01/07/2025) (Collection Date & Time - 01/07/2025 07:30 AM) ? Value Reference Range ?Triglycerides 101 <150 - mg/dL ?Cholesterol 155 <200 - m g/dL ?LDL Cholesterol Calculated 73 <100 - mg/dL ?HDL Cholesterol 62 >40 - mg/dL ???Lab:Vitamin D 25-OH Total (Order 01/07/2025) (Collection Date & Time - 01/07/2025 [...] normal, no murmurs.?LUNGS:?clear to auscultation bilaterally.?BREASTS:?done by livestock commission agent.?ABDOMEN:?soft, tender in epigastrum, nondistended, bowel sounds present, normal, no organomegaly , no masses palpable.?RECTAL EXAM:?done by livestock commission agent.?FEMALE GENITOURINARY:?done by livestock commission agent.?EXTREMITIES:?no clubbing, cyanosis, or edema.?NEUROLOGIC:?nonfocal, motor strength normal upper and lower extremities, sensory exam intact.? Assessment: * Assessment: 1.?Annual physical exam - Z0 0.00 (Primary)???2.?Prediabetes - R73.09???3.?History of hematuria - Z87.448???4.?Coronary artery disease of [place] artery of [place]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 pectoris - I25.118???5.?Muscle [...] pending results?? 4.?Coronary artery disease o f [place] artery of [place]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 pectoris? Notes: had [...] THE US ORDER WILL BE FAXED TO [facility]TRAL[facility]ED SCHEDULE Notes: will get cxr, pending [...] Phelan MD Date:?0 01/14/2025 Generated for Glenis ribeiro/Brianna/eTransmitting on:?03/30/2025 09:15 AM EDT History and Physical Notes * [...] cyanosi s, or edema BREASTS: done by livestock commission agent RECTAL EXAM: done by livestock commission agent FEMALE GENITOURINARY: done by livestock commission agent ORAL CAVITY: mucosa moist
--- OUTSIDE RECORDS SUMMARY | 2025-03-30 09:15 | XMS_ITS ---
Author Organization Brandon Phelan MD Address [address] [place] [phone] Care Team Providers Care Director Of Healthcare Systems Name Role Phone Brandon Phelan Primary Care Provider [phone] Allergies Allergen (clinical drug ingredient) Drug/Non Drug Allergy documented on EMR Reaction Allergy Type Onset Date Status Simvastatin myalgia Drug Allergy Activ e atorvastatin Lipitor myalgia Drug Allergy Acti ve REASON FOR VISIT 2 MO F/U Medications Medication SIG (Take, Route, Frequency, Duration) Notes Start Date End Date Status Escitalopram Oxalate 10 MG 1 tablet Orally Once a day for 90 days Not-Taking Ocuflox 0.3 % 1 drop into affected eye Ophthalmic Four times a day for 7 days 06/18/2022 Not-Taking Vitamin D 50 MCG (1999 ME) 1 tablet Orally Once a day for 30 day(s) Not-Taking Ocuflox 0.3 % 1 drop into affected eye Ophthalmic Four times a day for 10 days 12/18/2021 Not-Taking DULoxetine HCl 60 MG TAKE 1 CAPSULE BY M [facility] EVERY DAY FOR 30 DAYS for 90 Active Repatha Active Aspir-Low 81 MG 1 tablet Orally Once a day for 30 day(s) Active Albuterol Sulfate HFA 108 (90 Base) MCG/ACT 1 puff as needed Inhalation every 4 hrs for 30 days 01/29/2022 Active Nitrostat 0.4 MG as directed Sublingu al for chest pain may repeat every 5 min times 3 for 30 days 06/18/2022 Active Omeprazole 20 MG TAKE 1 CAPSULE BY MO [facility] EVERY DAY 30 MINUTES BEFORE MORNING MEAL for 90 Active Repatha 140 MG/ML 1 mL Subcutaneous Active ProAir RespiClick 108 (90 Base) MCG/ACT 2 puffs as needed Inhalation every 6 hrs for 30 days 09/08/2018 Not-Taking Diprolene AF 0.05 % 1 application to affected area Externally Once a day for 30 days 08/13/2016 Not-Takin g Valtrex 1 GM 1 tablet Orally ever y 8 hours for 7 days 11/04/2016 Not-Taking ProAir HFA 108 (90 Base) MCG/ACT 2 puffs as needed Inhalation every 4 hrs for 30 days 01/18/2014 Not-Taking Tylenol 8 Hour 650 MG 2 tablets as neede d Orally every 8 hrs Not-Taking Problems Problem Type SNOMED Code ICD Code Onset Dates Problem Status W/U Status Risk Notes Problem Liver cyst (04286669) Liver cyst (K76.89) Active confirmed Vital Signs Blood pressure systolic 122 mm Hg 03/11/20 25 Blood pressure diastolic 60 mm Hg 025 Height 65 in 03/11/2025 Weight 163 lbs 03/11/2025 BMI 27.12 kg/m2 03/11/2025 weight is up 5 pounds since 01-14-25 Encounters Encounter Location Date Provider Diagnosis Brandon Phelan MD [address] [place] [address] [place] [phone] 03/11/2025 Brandon Phelan Prediabetes R73.09 and Liver cyst K76.89 Assessments Encounter Date Diagnosis (ICD Code) Assessment Notes Treatment Notes Treatment Clinical Notes Section Notes 03/11/2025 Prediabetes (ICD-10 - R73.09) doing great, no need for medication at this time 03/11/2025 Liver cyst (ICD-10 - K76.89) discussed findings of US with patient, awaiting call back from radiaology for further explanation Plan Of Treatment Treatment Notes Assessment Notes Prediabetes doing great, no need for medication at this time Liver cyst discussed findings o f US with patient, awaiting call back from radiaology for further explanation Pending Test Test Name Order Date Glucose, finger stick 03/11/2025 Next Appt Details Provider Name:Brandon Villagomez ier, 07/14/2025 07:15:00 AM, [address], [address], [place], [place], [phone], Provider Name:Brandon Villagomez ier, 01/10/2026 07:15:00 AM, [address] [place] [address], [address], [place], [place], [phone], Provider Name:Brandon Villagomez ier, 01/17/2026 08:30:00 AM, [address], [address], [place], [place], [phone], Progress Notes * Ida ROMO ADOB: (79 yo F)Acc No.[id number]:03/11/2025 Progress Notes Patient:?DAVID Ida Agee Provider:?Brandon Phelan MD :1945???Age:79 Y???Sex:Female D ate:03/11/2025 Address: [address] [id number] Subjective: * Chief Complaints: * ???2 MO F/U * HPI: ???Symptom(s):?patient is? 79 yo female here for 2 month follow up visit/. * ROS:?General/Constitutional:?Denies?Chills.?Denies?Fatigue.?Denies?Fever.?Denies?Headache.?ENT:?Patient denies?decreased sense of smell, any loss of taste, sore throat.?Denies?Sore throat.?Respiratory:?Denies?Cough.?Denies?Shortness of breath at rest.?Denies?Shortness of breath with exertion.?Gastrointestinal:?Denies?Diarrhea.?Denies?Nausea.?Musculoskeletal:?Patient denies?muscle aches.?Peripheral Vascular:?Patient denies?red and blue toes.? * Medical History:? * Surgical History:? * Hospitalization/Major Diagno stic Procedure:? * Medications:?TakingRepatha 1 40 MG/ML Solution Prefilled Syringe 1 mL Subcutaneous Repatha Aspir-Low 81 MG Tablet Delayed Release 1 [...] EVERY DAY FOR 30 DAYS Taking Repatha 140 MG/ML Solution Prefilled Syringe 1 mL Subcutaneous Taking Repatha Taking Aspir- Low 81 MG Tablet Delayed Release 1 tablet [...] myalgiayes[Allergies Verified] Objective: * Vitals:?Ht: 65, Wt: 163, BMI :27.12, BP:122/60, Wt-k.94. weight is up 5 pounds since 01-14-25. * ???Past Orders: ???Lab:Lipid Panel (Order Da te - 01/07/2025) (Collection Date & Time - 01/07/2025 07:30 AM) ? Value Reference Range ?Triglycerides 101 <150 - mg/dL ?Cholesterol 155 <200 - m g/dL ?LDL Cholesterol Calculated 73 <100 - mg/dL ?HDL Cholesterol 62 >40 - mg/dL ???Lab:Comprehensive [place]. [facility] Fast (Order Date - 01/07/2025) [...] mg/dL ?Calcium 9.7 8.4-10.2 - m g/dL ???Lab:Complete Blood Count Auto Diff (Order Date [...] Abs Auto 0.000 0.0-0. 012 - X10*3/uL ???Lab:Hemoglobin A1c (Order Date - 01/07/2025) (Collection Date & Time - 01/07/2025 07:30 AM) ? Value Reference Range ?Hemoglobin A1c % 5.3 <6. 0 - % ?Estimated Average Glucose 105 - mg/dL ???Lab:Vitamin D 25-OH Total (Order Date - 01/07/2025) (Collection Date & Time - 01/07/2025 07:30 AM) ? Value Reference Range ?Vitamin D 25-OH Total 59.7 >30 - ng/mL * Examination: ???General Examination: ?GENERAL APPEARANCE:?alert, well hydrated, in no distress.?HEAD:?normocephalic.?SKIN:?good turgor.?HEART:?regular rate and rhythm, no murmurs, rubs, gallops.?LUNGS:?no wheezes, rales, rhonchi, good air movement, clear to auscultation bilaterally.?ABDOMEN:?soft, nontender, nondistended, no rebound tenderness, no organomegaly.? Assessment: * Assessment: 1.?Prediabetes - R73.09 (Tracie ashley)???2.?Liver cyst - K76.89??? Plan: * Treatment: 2.?Liver cyst? Notes: discussed findings of US with patient, awaiting call back from radiaology for further explanation?? * Procedure Codes:?93656 ASSAY , GLUCOSE, BLOOD QUANT, Modifiers: QW * * Sign off status: Completed true * Provider:?Brandon Phelan MD Date:?0 03/11/2025 Generated for Glenis ng/Brianna/eTransmitting on:?03/30/2025 09:14 AM EDT History and Physical Notes * HPI (History of Present Illness) Category Sub-Category Detail Notes Category Not es Symptom(s) patient is 79 y o female here for 2 month follow up visit/ Examination Category Sub-Category Detail Notes Category Not es General Examination GENERAL APPEARANCE: alert, w ell hydrated, in no distress HEAD: normocephalic HEART: regular rate and rhy thm, no murmurs, rubs, gallops LUNGS: no wheezes, rales, r honchi, good air movement, clear to auscultation bilaterally ABDOMEN: soft, nontender, non distended, no rebound tenderness, no organomegaly SKIN: good turgor
--- OUTSIDE RECORDS SUMMARY | 2025-03-30 09:15 | XMS_ITS ---
Author Organization [facility] Address [address] [place] [phone] Care Team Providers Care Special Programs Director Name Role Phone Brandon Phelan MD Primary Care Provider Roque Monterroso [phone] REASON FOR VISIT sceening Problems Problem Type SNOMED Code ICD Code Onset Dates Problem Status W/U Status Risk Notes Problem Diverticulosis o f large intestine without perforation or abscess without bleeding (K57.30) Active confirmed Encounters Encounter Location Date Provider Diagnosis [facility] [address] [address], [place] [phone] 09/06/2024 Roque Wright Colon cancer scree anay [...] Progress Notes * DEMETRIUSGWENDOLYNDOB:1945 (79 yo F)Acc No.[id number]:09/06/2024 COLON WITH MAC Patient:?GWENDOLYN ROMO Provider:?Roque Wright MD :1945???Age:79 Y???Sex:Female D ate:09/06/2024 Address:[address] [place] [id number] Pcp:Brandon Phelan MD Subjective: * Chief Complaints: [...] Wright MD Date:? 024 Generated for Glenis ribeiro/Brianna/eTransmitting on:?03/30/2025 09:15 AM EDT
--- OUTSIDE RECORDS SUMMARY | 2025-03-30 09:15 | XMS_ITS | Patient Health Record ---
Author Organization Brandon Phelan MD Address [address] [place] [phone] Care Team Providers Care Unix Architect Name Role Phone Brandon Phelan Primary Care Provider [phone] Allergies Allergen (clinical drug ingredient) Drug/Non Drug Allergy documented on EMR Reaction Allergy Type Onset Date Status Simvastatin myalgia Drug Allergy Activ e atorvastatin Lipitor myalgia Drug Allergy Acti ve Results Component Value Reference Range Notes Glucose Fasting Reviewed date:06/17/2024 12:24:56 PM Interpretation: Performing Lab:[facility], [address] [place] [phone] Notes/Report: Glucose Fasting 102 60-99 mg/dL A fasting glucose from 100-125 mg/dl is considered impaired (pre-diabetes). Lipid Panel Reviewed date:06/17/2024 12:38:53 PM Interpretation: Performing Lab:[facility], [address] [place] [phone] Notes/Report: Triglycerides 88 <150 mg/dL Desirable Triglyceride: less than 150 mg/dL Borderline High Triglyceride 150-199 mg/dL High Triglyceride: 200-499 mg/dL Very High Triglyceride: greater than or equal to 5OO mg/dL Cholesterol 142 <200 mg/dL Desirable Cholesterol: less than 200 mg/dL Borderline High Cholesterol: 200-239 mg/dL High Cholesterol: greater than 239 mg/dL LDL Cholesterol Calculated 63 <100 mg/dL Desirable LDL: less than 100 mg/dL Near Optimal/Above Optimal LDL: 110-129 mg/dL Borderline High LDL: 130-159 mg/dL High LDL: 160-189 mg/dL Very High LDL: greater than or equal to 190 mg/dL HDL Cholesterol 62 >40 mg/dL Desirable HDL: greater than 40 mg/dL Note: This HDL assay may give artificially low results in patients with liver disease. Hemoglobin A1c Reviewed date:06/17/2024 12:25:04 PM Interpretation: Performing Lab:[facility], [address] [place] [phone] Notes/Report: Hemoglobin A1c % 5.3 <6.0 % [...] average glucose, using the formula of the L6D-Ehxmttp Average Glucose study (ADAG), Diabetes Care, Vol.31,#8, Jun. 2007 Complete Blood Count Auto Di ff Reviewed date:01/07/2025 04:39:33 PM Interpretation: Performing Lab:[facility], [address] [place] [phone] Notes/Report: White Blood Count 8.4 4.8-10.8 X10*3/uL [...] 0.0-0.2 /100WBC Neutrophils Absolute Auto 4.4 2.0-8.3 x10*3/uL Imm Gran Abs Auto 0.05 0.00-0.03 X10*3/uL Lymphocytes Absolute Auto 2.8 1.2-4.9 X10*3/uL Monocytes Absolute Auto 0.7 0.1-1.2 X10*3/uL Eosinophils Absolute Auto 0.3 0.0-0.4 X10*3/uL Basophils Absolute Auto 0.1 0.0-0.2 X10*3/uL NRBC Abs Auto 0.000 0.0-0.012 X10*3/uL Comprehensive Anita. Panel Fa st Reviewed date:01/07/2025 04:38:33 PM Interpretation: Performing Lab:[facility], [address] [place] [phone] Notes/Report: Sodium 142 135-145 mmol/L Potassium 4.7 [...] Panel Reviewed date:01/07/2025 12:36:07 PM Interpretation: Performing Lab:[address] [phone] Notes/Report: Triglycerides 101 <150 mg/dL Desirable Triglyceride: [...] Total Reviewed date:01/07/2025 12:36:16 PM Interpretation: Performing Lab:[address] [phone] Notes/Report: Vitamin D 25-OH Total 59.7 >30 [...] A1c Reviewed date:01/07/2025 12:35:50 PM Interpretation: Performing Lab:[facility], [address] [place] [phone] Notes/Report: Hemoglobin A1c % 5.3 <6.0 % [...] average glucose, using the formula of the V3H-Cratiqg Average Glucose study (ADAG), Diabetes Care, Vol.31,#8, Jun. 2007 TSH reflex Free T4 Reviewed date:07/01/2024 02:52:12 PM Interpretation: Performing Lab:[facility], [address] [place] [phone] Notes/Report: TSH reflex Free T4 0.99 0.32-4.0 uIU/mL XR hip LT min 2V Reviewed date:09/17/2024 09:56:11 AM Interpretation: Performing Lab: Notes/Report: [address] [address] XRay Report Signed Patient: Ida Hernandez MR#: [id number] 78 : 1945 Acct:[id number] Age/Sex: 79 / F ADM Date: 09/16/24 Loc: [facility] Attending Dr: Brandon Phelan MD Ordering Physician: Brandon Phelan MD Date of Service: 09/16/24 Procedure(s): XR hip LT min 2V Accession Number(s): [id number] cc: Brandon Phelan MD EXAMINATION: XR HIP, LEFT CLINICAL INFORMATION: Pain. COMPARISON: Left femur radiographs dated 05/31/2016. TECHNIQUE: AP and frog-leg lateral views of the left hip. FINDINGS: Bony alignment and mineralization are normal. The left acetabular joint space is well-maintained. The left femoral head is smooth. There is no fracture or dislocation. The soft tissue planes are unremarkable, without foreign body. XR/XR hip LT min 2V IMPRESSION: Unremarkable left hip. Electronically signed by: Scottie White MD 09/16/2024 10:52 PM EDT RP Dictated By: Scottie White MD Signed By: <Electronically signed by Scottie White MD in OV> 09/16/242251 DD/ 28 TD/TT: 09/16/241128 Food Specialist: [address] [address] XRay Report Signed Patient: Eri Hernandez MR#: [id number] [birth year] : 1945 Acct:[id number] Age/Sex: 79 / F ADM Date: 09/16/24 Loc: HO.XRAY Attending Dr: Brandon Phelan MD Ordering Physician: Brandon Phelan MD Date of Service: 09/16/24 Procedure(s): XR hip LT min 2V Accession Number(s): [id number] cc: Brandon Phelan MD EXAMINATION: XR HIP, LEFT CLINICAL INFORMATION: Pain. COMPARISON: Left femur radiograp hs dated 05/31/2016. TECHNIQUE: AP and frog-leg late ral views of the left hip. FINDINGS: Bony alignment and mineralization are normal. The left acetabular joint space is well-maintained. The left femoral head is smooth. There is no fracture or dislocation. The soft tissue planes are unremarkable, without foreign body. XR/XR hip LT min 2V IMPRESSION: Unremarkable left hip. Electronically berhane d by: Scottie White MD 09/16/2024 10:52 PM EDT RP Dictated By: Sree White MD Signed By: <Electronically signed by Scottie White MD in OV> 09/16/242251 DD/ 28 TD/TT: 09/16/241128 Food Specialist: J Luis Krueger Reviewed date:01/14/2025 04:26:37 PM Interpretation: Performing Lab:[facility], [address] [place] [phone] Notes/Report: Creatinine Urine 68.37 Microalbumin Urine < 5.0 Microalbum/Creatinine Ratio Ur TNP <30 ug/mg cr Unable to calculate albumin/creatinine ratio due to low microalbumin or creatinine result. UA ClnCatch+Micro w/rflx Cul t Reviewed date:01/14/2025 04:41:00 PM Interpretation: Performing Lab:[facility], [address] [place] [phone] Notes/Report: Urine, Clean Catch Color Urine Yellow Appearance Urine Clear PH 5.5 5.0-9.0 Glucose Urine UA Negative Negative mg/dL Urine Blood Negative Negative Specific [place] - Urine 1.015 1.005-1.025 Urine Protein Negative Neg-Trace mg/dL Urine Ketones Negative Negative mg/dL Nitrite Urine Negative Negative Leukocyte Esterase Urine Moderate (2+) Negative RBC Urine 0-2 0-2 /HPF WBC Urine 11-20 0-5 /HPF Squamous Epithelial Cell Urine 3-5 0-2 /HPF Bacteria Urine None Seen None Seen Hyaline Casts Urine 0-2 0-2 /LPF Hold Gold Reviewed date:01/07/2025 12:35:44 PM Interpretation: Performing Lab:[facility], [address] [place] [phone] Notes/Report: Hold Gold See Note Specimen held untested for 24 hours; Call to request Chemistry testing. Urine Culture Reviewed date:01/16/2025 06:23:53 PM Interpretation: Performing Lab:[facility], [address] [place] [phone] Notes/Report: O:STRAGA Strep agalactiae (Gr p B) Urine Culture Quant Urine Culture > 100,000 cfu/mL Urine Culture Susc N/A Urine Culture Susceptibility not routinely performed on this isolate. US abdomen complete Reviewed date:03/21/2025 02:40:41 PM Interpretation: Performing Lab: Notes/Report: [address] [address] Ultrasound Report Signed Patient: Ida Hernandez MR#: [id number] [birth year] : 1945 Acct:[id number] Age/Sex: 79 / F ADM Date: 02/22/25 Loc: HO.US Attending Dr: Brandon Phelan MD Ordering Physician: Brandon Phelan MD Date of Service: 02/22/25 Procedure(s): US abdomen complete Accession Number(s): [id number] cc: Brandon Phelan MD CLINICAL HISTORY: ABD PAIN US abdomen complete Comparison: None Findings: The visualized pancreas is normal. The aorta and inferior vena cava are normal caliber. The liver is normal in size with increased echogenicity. 2.6 x 2.4 x 2.5 cm complex cyst of the left lobe. 2.6 x 2 x 2.7 cm complex cyst in the right lobe. There is no intrahepatic bile duct dilatation. The common duct is 1.7 mm in diameter. The gallbladder is normal. There is no sonographic Sales sign. The main portal vein is antegrade. The right kidney is 8.4 cm in length. The left kidney is 9.5 cm in length. The spleen is normal. No ascites. IMPRESSION: Increased echogenicity of the liver favored to represent hepatic steatosis. Complex cysts of the liver. This document has been electronically signed by: Kiara Osorio MD on 02/22/2025 16:25:12 Dictated By: Kiara Osorio MD Signed By: <Electronically signed by Kiara Osorio MD in OV> 02/22/25 1626 DD/ 1625 TD/TT: 02/22/25 162 Food Specialist: [place] [address] Ultrasound Report Signed Patient: Eri Henrandez MR#: [id number] [birth year] : 1945 Acct:[id number] Age/Sex: 79 / F ADM Date: 02/22/25 Loc: HO.US Attending Dr: Brandon Phelan MD Ordering Physician: Brandon Phelan MD Date of Service: 02/22/25 Procedure(s): US abdomen complete Accession Number(s): [id number] cc: Brandon Phelan MD CLINICAL HISTORY: AB D PAIN US abdomen complete Comparison: None Findings: The visualized pancr eas is normal. The aorta and inferi or vena cava are normal caliber. The liver is normal in size with increased echogenicity. 2.6 x 2.4 x 2.5 cm complex cyst of t he left lobe. 2.6 x 2 x 2.7 cm complex cyst in the right lobe. There is no intrahepatic bile duct dilatation. The common duct is 1 .7 mm in diameter. The gallbladder is normal. There is no sonographic Sales sign. The main portal vein is antegrade. The right kidney is 8.4 cm in length. The left kidney is 9 .5 cm in length. The spleen is normal. No ascites. IMPRESSION: Increased echogenici ty of the liver favored to represent hepatic steatosis. Complex cysts of the liver. This document has be en electronically signed by: Kiara Osorio MD on 02/22/2025 16:25:12 Dictated By: Kiara Osorio MD Signed By: <Electronically signed by Kiara Osorio MD in OV> 02/22/251625 DD/ 24 TD/TT: 02/22/251624 Food Specialist: XR chest 2V Reviewed date:02/22/2025 12:15:36 PM Interpretation: Performing Lab: Notes/Report: [place] [address] XRay Report Signed Patient: Ida Hernandez MR#: [id number] [birth year] : 1945 Acct:[id number] Age/Sex: 79 / F ADM Date: 02/22/25 Loc: HO. Attending Dr: Brandon Phelan MD Ordering Physician: Brandon Phelan MD Date of Service: 02/22/25 Procedure(s): XR chest 2V Accession Number(s): [id number] cc: Brandon Phelan MD EXAMINATION: XR CHEST 2 VIEWS HISTORY: LUNG DISEASE BULLOUS COMPARISON: Comparison is made with the prior examination dated 09/08/2018. FINDINGS: PA and lateral views of the chest are submitted. There is mild biapical pleural and parenchymal scarring. The lungs are otherwise clear. There is no pleural effusion, pneumothorax, or pulmonary vascular congestion. The heart is normal in size. The aorta is calcified. The bones are intact. XR/XR chest 2V IMPRESSION: No acute cardiopulmonary abnormality. Electronically signed by: Roque Durant MD 02/22/2025 09:25 AM EDT Dictated By: Roque Durant MD Signed By: <Electronically signed by Roque Durant MD in OV> 02/22/25924 DD/ 1 TD/TT: 02/22/25804 Food Specialist: [address] [address] XRay Report Signed Patient: Eri Hernandez MR#: [id number] [birth year] : 1945 Acct:[id number] Age/Sex: 79 / F ADM Date: 02/22/25 Loc: HO. Attending Dr: Brandon Phelan MD Ordering Physician: Brandon Phelan MD Date of Service: 02/22/25 Procedure(s): XR meng st 2V Accession Number(s): [id number] cc: Brandon Phelan MD EXAMINATION: XR CHES T 2 VIEWS HISTORY: LUNG DISEAS E BULLOUS COMPARISON: Comparis on is made with the prior examination dated 09/08/2018. FINDINGS: PA and lateral views of the chest are submitted. There is mild biapical pleura l and parenchymal scarring. The lungs are otherwise clear. There is no pleural effusion, pneumothorax, or pulmonary vascular congestion. The heart is normal in size. The aorta is calcified. The bones are intact. XR/XR chest 2V IMPRESSION: No acute cardiopulmonary abnormality. Electronically berhane d by: Roque Durant MD 02/22/2025 09:25 AM EDT RP Dictated By: Roque Durant MD Signed By: <Electronically signed by Roque Durant MD in OV> 02/22/25924 DD/ 1 TD/TT: 02/22/25804 Food Specialist: Reason For Referral Reason lumbar disc disease [...] Referral Priority Routine Referral Appointment Date 01/20/2025 Medications Medication SIG (Take, Route, Frequency, Duration) Notes Start Date End Date Status Escitalopram Oxalate 10 MG 1 tablet Orally Once a day for 90 days Not-Taking Ocuflox 0.3 % 1 drop into affected eye Ophthalmic Four times a day for 7 days 06/18/2022 Not-Taking Vitamin D 50 MCG (2000 UT) 1 tablet Orally Once a day for 30 day(s) Not-Taking Ocuflox 0.3 % 1 drop into affected eye Ophthalmic Four times a day for 10 days 12/18/2021 Not-Taking Repatha 140 MG/ML 1 mL Subcutaneous Active Tylenol 8 Hour 650 MG 2 tablets as neede d Orally every 8 hrs Not-Taking Repatha Active ProAir RespiClick 108 (90 Base) MCG/ACT 2 puffs as needed Inhalation every 6 hrs for 30 days 09/08/2018 Not-Taking Aspir-Low 81 MG 1 tablet Orally Once a day for 30 day(s) Active Diprolene AF 0.05 % 1 application to affected area Externally Once a day for 30 days 08/13/2016 Not-Takin g Albuterol Sulfate HFA 108 (90 Base) MCG/ACT 1 puff as needed Inhalation every 4 hrs for 30 days 01/29/2022 Active Valtrex 1 GM 1 tablet Orally ever y 8 hours for 7 days 11/04/2016 Not-Taking Nitrostat 0.4 MG as directed Sublingu al for chest pain may repeat every 5 min times 3 for 30 days 06/18/2022 Active ProAir HFA 108 (90 Base) MCG/ACT 2 puffs as needed Inhalation every 4 hrs for 30 days 01/18/2014 Not-Taking Omeprazole 20 MG TAKE 1 CAPSULE BY MO UTH EVERY DAY 30 MINUTES BEFORE MORNING MEAL for 90 Active DULoxetine HCl 60 MG TAKE 1 CAPSULE BY M OUTH EVERY DAY FOR 30 DAYS for 90 Active Immunizations Vaccine Route Administration Date Status Comme nts Flu Vaccine IM Intramuscular 07/23/2011 Administered Shingles Unknown 10/18/2011 Administered Flu Vaccine IM Intramuscular 09/08/2012 Administered Prevnar 13 IM Intramuscular 12/15/2012 Administered PPSV23 (Pnemovax) Unknown 09/17/2001 Administered Fluarix Quadrivalent IM Intramuscular 09/07/2013 Administe red Fluarix Quadrivalent IM Intramuscular 08/02/2014 Administe red PPSV23 (Pnemovax) IM Intramuscular 10/18/2014 Administered Fluarix Quadrivalent IM Intramuscular 09/08/2015 Adminmeliae red TDaP IM Intramuscular 01/18/2016 Administered Fluarix Quadrivalent IM Intramuscular 08/13/2016 Administe red Fluarix Quadrivalent IM Intramuscular 09/23/2017 Adminmeliae red Shingrix IM Intramuscular 2018 Administered Fluarix Quadrivalent IM Intramuscular 08/17/2018 Administe red Shingrix IM Intramuscular 02/08/2019 Administered pt was given the vaccine at [facility] in [place]. Influenza High Dose Unknown 08/18/2019 Administered [facility] PPSV23 (Pnemovax) IM Intramuscular 12/28/2019 Administered Influenza High Dose Unknown 09/05/2020 Administered [facility] Covid Vaccine Unknown 12/22/2020 Administered [facility] PFIZE R Covid Vaccine Unknown 01/12/2021 Administered Pfizer SARS-COV-2 Pfizer Unknown 09/03/2021 Administered Influenza High Dose Unknown 08/21/2021 Administered Influenza High Dose Unknown 09/20/2022 Administered [facility] Influenza High Dose Unknown 09/20/2022 Administered [facility] Influenza High Dose Unknown 09/06/2023 Administered [facility] Influenza High Dose Unknown 09/01/2024 Administered Flu Vaccine Unknown 08/02/2014 Pending Social History Tobacco Use: Social History Observation [...] Problem Status W/U Status Risk Notes Problem 17635398 Age-related osteoporosis without current pathological fracture (M81.0) Active confirmed Problem 937689241 Atherosclerotic heart disease of [place] coronary artery without angina pectoris (I25.10) Active confirmed Problem Acid reflux (958986901) Acid reflux (K21.9) Active confirmed Problem 31442031 Lymphocytosis (D72.820) Active confirmed Problem 94555074 Vitamin D defici ency (E55.9) Active confirmed Problem 96555936 Anxiety (F41.9) Active confirmed Problem 29410866 Hip arthritis (M19.90) Active confirme d Problem 2657948 Panlobular emphy sema (J43.1) Active confirmed Problem 740293961206892 Primary osteoarthritis, right hand (M19.041) Active confirmed Problem 883607495789028 Primary osteoarthritis, left hand (M19.042) Active confirmed Problem 80835631 Lumbar disc dise ase (M51.9) Active confirmed Problem 159151510 Osteopenia (M85.80) Active confirmed Problem 265893344 Mild intermitten t asthma without complication (J45.20) Active confirmed Problem 9756937 Prediabetes (R73.09) Active confirmed Problem 279120836 Memory loss (R41.3) Active confirmed Problem 392836460 History of hemat uria (Z87.448) Active confirmed Problem 449513870 Cervical disc di sease (M50.90) Active confirmed Problem 76606375 Peptic ulcer (K27.9) Active confirmed Problem 34400066 Sciatica of left side (M54.32) Active confirmed Problem 36931440 Dysthymia (F34.1) Active confirmed Problem 97170733 Reactive depress ion (F32.9) Active confirmed Problem Emphysema (78690883) Lung disease, 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) Active confirmed Problem Liver cyst (30359294) Liver cyst (K76.89) Active confirmed Problem 845742532 Pure hypercholesterolemia (E78.00) Active confirmed Problem 673768804 Coronary artery disease of [place] artery of [place]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 pectoris (I25.118) Active confirmed Problem 350235956 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) Active confirmed Problem 303740946 Mild intermitten t asthmatic bronchitis with acute exacerbation (J45.21) Active confirmed Problem 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 Problem 50043828 Osteoporosis, unspecified osteoporosis type, unspecified pathological fracture presence (M81.0) Active confirmed Problem 02603050 Stasis dermatiti s of both legs (I87.2) Active confirmed Vital Signs Blood pressure diastolic 60 mm Hg 03/11/2025 shannon ght is up 5 pounds since 01-14-25 Height 65 in 03/11/2025 weight is up 5 pounds since 01-14-25 Blood pressure systolic 122 mm Hg 03/11/2025 weig ht is up 5 pounds since 01-14-25 Weight 163 lbs 03/11/2025 weight is up 5 pounds since 01-14-25 BMI 27.12 kg/m2 03/11/2025 weight is up 5 pounds since 01-14-25 Encounters Encounter Location Date Provider Diagnosis Brandon Phelan MD [address] [place] [id number] 06/17/2024 Brandon Phelan Prediabetes R73.09 a nd Pure hypercholesterolemia E78.00 Brandon Phelan MD [address] [place] [address] [id number] 01/07/2025 Brandon Phelan Blood tests for rout ine general physical examination Z00.00 ; Prediabetes R73.09 ; Pure hypercholesterolemia E78.00 ; Lymphocytosis D72.820 and Vitamin D deficiency E55.9 Brandon Phelan MD [address] [id number] 04/15/2024 Brandon Phelan Muscle cramps R25.2 ; Pure hypercholesterolemia E78.00 ; Primary osteoarthritis, right hand M19.041 and Primary osteoarthritis, left hand M19.042 Brandon Phelan MD [address] [id number] 07/01/2024 Brandon Phelan Muscle cramps R25.2 ; Pure hypercholesterolemia E78.00 ; Atherosclerotic heart disease of [place] coronary artery without angina pectoris I25.10 and Intolerant of heat R68.89 Brandon Phelan MD [address] [place] [id number] 09/16/2024 Brandon Phelan Hip pain, left M25.5 52 and Spinal stenosis of lumbosacral region M48.07 Brandon Phelan MD [address] [id number] 12/17/2024 Brandon Bombardier Lumbar disc disease with radiculopathy M51.16 Brandon Phelan MD [address] [place] [id number] 01/14/2025 Brandon Phelan Prediabetes R73.09 ; Annual physical exam Z00.00 ; History of hematuria Z87.448 ; Coronary artery disease of [place] artery of [place]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 pectoris I25.118 ; Muscle cramps R25.2 ; Abdominal pain R10.9 ; Lung disease, bullous J43.9 ; Vitamin D deficiency E55.9 ; Acid reflux K21.9 and Depression screening Z13.31 Brandon Phelan MD [address] [place] [id number] 03/11/2025 Brandon Phelan Prediabetes R73.09 a nd Liver cyst K76.89 Brandon Phelan MD [address] [place] [id number] 08/03/2024 Brandon Phelan MD [address] [place] [id number] 10/11/2024 Brandon Phelan MD [address] [place] [id number] 03/15/2025 Brandon Phelan MD [address] [place] [id number] 08/26/2024 Brandon Phelan Assessments Encounter Date Diagnosis (ICD Code) Assessment Notes Treatment Notes Treatment Clinical Notes Section Notes 06/17/2024 Prediabetes (ICD-10 - R73.09) 06/17/2024 Pure hypercholesterolemia (ICD-10 - E78.00) 01/07/20[address] tests [address] ine general physical examination (ICD-10 - Z00.00) 04/15/2024 Muscle cramps (ICD-1 0 - R25.2) is going to try tonic water, will keep us posted 04/15/2024 Pure hypercholesterolemia (ICD-10 - E78.00) pending labs, 07/01/2024 Muscle cramps (ICD-1 0 - R25.2) needs to go back to dr sosa to see if she is a candidate for nexitoll/RICK IS A PATIENT OF DR FLOWERS SO SHE WILL CALL FOR HER APPT 07/01/2024 Pure hypercholesterolemia (ICD-10 - E78.00) because of her cad needs to be on meds 09/16/2024 Hip pain, left (ICD- 10 - M25.552) order given to patient/pendi ng diagnostic testing 09/16/2024 Spinal stenosis of lumbosacral region (ICD-10 - M48.07) MRI order faxed to Kevin, pending diagnostic testing has a lot of pain in hip. may be is related to back. is planning on surgery on her back but want to be certain that is not actually hip arthritis as people frequently have both. hip xray done shows normal hip/ needs mri of spine before neurosurgeons see her and they will not order them so we will order the test 12/17/2024 Lumbar disc disease with radiculopathy (ICD-10 - M51.16) referral to dr santana has pain in hip and can't walk without numbness. has a disc on the mri that i reviewed with her that seems to be consistant with her complaints. will refer back to dr santana. have reviewed the mri with her in detail 01/14/2025 Prediabetes (ICD-10 - R73.09) stable, no need for medication at this time 01/14/2025 Annual physical exam (ICD-10 - Z00.00) labs reviewed and discussed with patient 03/11/2025 Prediabetes (ICD-10 - R73.09) doing great, no need for medication at this time 03/11/2025 Liver cyst (ICD-10 - K76.89) discussed findings of US with patient, awaiting call back from radiaology for further explanation 01/07/2025 Prediabetes (ICD-10 - R73.09) 04/15/2024 Primary osteoarthrit is, right hand (ICD-10 - M19.041) to try tylenol 07/01/2024 Atherosclerotic hear t disease of [place] coronary artery without angina pectoris (ICD-10 - I25.10) 01/14/2025 History of hematuria (ICD-10 - Z87.448) will get u/a, pending results 01/07/2025 Pure hypercholesterolemia (ICD-10 - E78.00) 04/15/2024 Primary osteoarthrit is, left hand (ICD-10 - M19.042) will try tylenol, will keep us posted 07/01/2024 Intolerant of heat (ICD-10 - R68.89) 01/14/2025 Coronary artery dise ase of [place] artery of [place]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 pectoris (ICD-10 - I25.118) had no obstructive disease 01/07/2025 Lymphocytosis (ICD-1 0 - D72.820) 01/14/2025 Muscle cramps (ICD-1 0 - R25.2) try tonic water with quinine 01/07/2025 Vitamin D deficiency (ICD-10 - E55.9) 01/14/2025 Abdominal pain (ICD- 10 - R10.9) 01/14/2025 Lung disease, bullou s (ICD-10 - J43.9) will get cxr, pending results 01/14/2025 Vitamin D deficiency (ICD-10 - E55.9) stable, will continue current regiment 01/14/2025 Acid reflux (ICD-10 - K21.9) stable, will continue current regiment 01/14/2025 Depression screening (ICD-10 - Z13.31) negative screen Plan Of Treatment Pending Test Test Name Order Date Electrocardiogram (EKG) 05/14/2018 Glucose, finger stick 03/11/2025 MRI LUMBAR SPINE NO CONTRAST 09/16/2024 XR CHEST 2 VIEW PA & LAT 01/14/2025 XR GI SERIES 12/12/2020 XR GI SERIES 12/23/2022 US ABD AORTA 12/12/2020 US ABD AORTA 12/19/2020 US ABD 01/14/2025 Microalbumin, Random 01/07/2025 UA ClnCatch+Micro w/rflx Cult 01/07/2025 Future Test Test Name Order Date US abdomen complete 01/15/2022 Next Appt Details Provider Name:Brandon mcrae, 07/14/2025 07:15:00 AM, [address] [place] [address] Drive, [address], [place], [place], [phone], Provider Name:Brandon mcrae, 01/10/2026 07:15:00 AM, [address], [address], [place], [place], [phone], Provider Name:Brandon mcrae, 01/17/2026 08:30:00 AM, [address], [address], [place], [place], [phone], Insurance Providers Payer Name Payer Address Payer Phone Subscriber Number Group Number Insured Name Patient Relationship to Insured Coverage Start Date Coverage End Date [facility] [employer] [address] [address] [place] [address] [id number] Ida Hernandez Self - patient is the insured 7 Medical (General) History Medical History History ICD Code small intracranial aneurysm, no treatmen t needed colonoscopy 01/13/2013 - repe at in 10 years, 09/06/24 colonoscopy negative, no further colonoscopy required Acute deep vein thrombosis (DVT) of femo ral vein of left lower extremity I82.412 Surgical History Surgery Date(Month/Year) Repair of Rt Inguinal Hernia 11/2017
== END ==
LOC: HO.CARD 08:51
PROVIDERS: PCP Internal Medicine; Visit Provider Internal Medicine
DX: R00.2 Palpitations (principal); I25.10 Atherosclerotic heart disease of native coronary artery without angina pectoris
CPT/HCPCS: 93246; 93306

== ENCOUNTER → 2025-03-30 08:57 | Outpatient (BNV) | payer MEDICARE, SELFPAY | PROVIDERS: PCP Internal Medicine; Visit Provider Internal Medicine Cardiovascular Disease | DX: I25.10 Atherosclerotic heart disease of native coronary artery without angina pectoris (principal) | CPT/HCPCS: 93306 ==

== ENCOUNTER 2025-05-19 08:38 | Outpatient (AMB) | payer MEDICARE, SELFPAY ==
--- OUTSIDE RECORDS SUMMARY | 2024-07-05 04:30 | XMS_ITS ---
Author Organization [facility] Address [address] [place] [address] Care Team Providers Care Groutman Name Role Phone Brandon Phelan MD Primary Care Provider Roque Monterroso [phone] REASON FOR VISIT sceening Encounters Encounter Location Date Provider Diagnosis [facility] [address], [place] [phone] 07/05/2024 Roque Wright Plan Of Treatment No Information Progress Notes * GWENDOLYN ROMODOB:1945 (79 yo F)Acc No.[id number]:07/05/2024 COLON WITH MAC Patient: GWENDOLYN TITUS Provider: Sabrina Wright MD :1945 A ge:78 Y S ex:Female Date:07/05/2024 Address: [address] [facility] Pcp:Brandon Phelan MD Subjective: * Chief Complaints: * 1 . Sceening. * Medical History: Objective: * Vitals: Assessment: Plan: * Treatment: * * The named appointment provid er may or may not be the originator of this progress note, and it is not deemed complete until electronically signed by the appointment provider. Sign off status: Pending * Provider: Sabrina Wright MD Date: 07/05/2024 Generated for Glenis ribeiro/Faary/eTransmitting on: 05/19/2025 08:45 AM EDT
--- OUTSIDE RECORDS SUMMARY | 2025-03-15 08:24 | XMS_ITS ---
Author Organization Brandon Phelan MD Address [address] [place] [phone] Care Team Providers Care Dispute Coordinator Name Role Phone Brandon Phelan Primary Care Provider Encounters Encounter Location Date Provider Diagnosis Brandon Phelan MD [address] [place] [phone] 03/15/2025 Brandon Phelan Plan Of Treatment Next Appt Details Provider Name:Brandon mcrae, 07/14/2025 07:15:00 AM, [address] [place] [address], [address] [place] [address], [phone], Provider Name:Brandon mcrae, 01/10/2026 07:15:00 AM, [address], [address], [place], [phone], Provider Name:Brandon Villagomez bridgettr, 01/17/2026 08:30:00 AM, [address], [address], [place], [place], [phone], Progress Notes * Ida ROMO ADOB: 5 (79 yo F)Acc No.[id number]:03/15/2025 Patient: Brody ROBERTSIda :1945 A ge:79 Y S ex:Female Address: [place] [address] * true * Date: Generated for Glenis ribeiro/Brianna/Tseringsmitting on: 0 05/19/2025 08:45 AM EDT
[2025-05-19 08:43] VITALS: BP 128/68; PULSE 82; BMI 25.6
--- NOTE | 2025-05-19 08:43 | A.OFFVIS_ITS ---
Vital Signs 05/19/25 08:43 Height 5 ft 6 in Weight 158 lb 11.725 oz BMI 25.6 BP 128/68 Blood Pressure Location Lt brachial Position Sitting Pulse 82 Pulse Source Pulse Oximeter Intake Visit Reasons: 2 mth s/p echo/ holter Allergies atorvastatin (Lipitor) Allergy (Unknown, Verified 09/06/24 07:24) myalgia naproxen (Naprosyn) Allergy (Unknown, Verified 09/06/24 07:24) oral sores simvastatin Allergy (Unknown, Verified 09/06/24 07:24) myalgia crestor/rosuvastatin Adverse Reaction (Intermediate, Uncoded 03/18/24 10:39) myalgias Medication List - Last Reconciled 05/19/25 by James Morley MD aspirin (Adult Low Dose Aspirin) 81 mg PO DAILY duloxetine 60 mg PO DAILY evolocumab (Repatha SureClick) 140 mg subcut Q2W nitroglycerin 0.4 mg sublingual Q5M PRN omeprazole 20 mg PO DAILY HPI Comments Details: Ida returns for follow-up regarding coronary artery disease. In the past, she had reported chest/jaw pain but only at nighttime but nonexertional. That led to further workup with coronary CTA showing nonobstructive disease. She had reported muscle spasm symptoms and hence statins were switched to Repatha but she still gets muscle spasms and hence most likely non statin related. She had an episode of sudden heart racing to 160/Min which last for about an hour. However, that has not happened again. She has recently undergone a Holter monitor evaluate this. However, that is unremarkable. Patient has not had any recurrence of symptoms. Otherwise, she feels quite well. [facility] Medical History (Updated 03/15/25 @ 09:27 by James Morley MD) Hiatal hernia GERD (gastroesophageal reflux disease) Hepatic cyst Hyperlipidemia Fibromyalgia Depression Statin intolerance Surgical History Hx of appendectomy H/O colonoscopy History of back surgery Hx of hernia repair Hx of hysterectomy Family History Father No problems noted. Mother No problems noted. Social History Are you a primary lawn care technician to a significant other at home: No Do you presently have visiting nurse or other home services: No Alcohol intake: current Alcohol intake frequency: holidays/special occasions only Patient Tobacco Use Status: Former Tobacco user Review of Systems Const Denies weakness ENT Denies dizziness Card Denies chest pain, Denies chest pain with activity, Denies syncope, Denies rapid heart rate, Denies pedal edema, Denies edema, Denies leg edema, Denies lightheadedness, Denies palpitations, Denies dyspnea, Denies dyspnea on exertion and Denies orthopnea Resp Denies cough, Denies dyspnea and Denies dyspnea on exertion GI Denies hematochezia and Denies change in stool character Musc Denies abnormal gait, Denies muscle cramps, Denies muscle weakness, Denies numbness, Denies radiating pain into limb and Denies tingling Neuro Denies abnormal gait, Denies dizziness, Denies syncope, Denies numbness, Denies tingling and Denies weakness Endo Denies palpitations Physical Exam Vital Signs: Last Vital Signs Pulse 82 05/19/25 08:43 BP 128/68 05/19/25 08:43 BMI result Body Mass Index 25.6 Const General: comfortable and no acute distress Orientation/consciousness: patient oriented x3 HEENT Other: Unremarkable Head: Yes normal to inspection Neck Neck: Yes normal visual inspection Chest Chest palpation & inspection: normal inspection of the chest Resp Auscultation: clear to auscultation bilaterally Cardio Palpation: normal PMI Heart sounds: S1 normal heart sound present, S2 normal heart sound present, no gallops, no murmurs and no rubs GI Palpation (GI): Soft to palpation Back/Spine/Pelvis Other: unremarkable Skin General skin exam: no rashes or lesions noted Neuro General: patient oriented x3 Extrem General: Yes normal to inspection Psych Mental Status: mental status grossly normal Assessment & Plan Assessment & Plan (1) Atherosclerotic cardiovascular disease: Code(s): I25.10 - Atherosclerotic heart disease of [place] coronary artery without angina pectoris Category: Medical Plan: Coronary CTA from 2021-left main with mild stenosis; LAD, 50% stenosis in the mid to distal portion. Circumflex 50% stenosis. Right coronary artery with suspected about 50% stenosis. Clinically, she has got no angina. She has had longstanding jaw pains of uncertain etiology. Nonexertional- in fact she states she feels better with activity. Continue Repatha. Lipids are much improved. (2) Statin intolerance: Code(s): Z78.9 - Other specified health status Category: Medical Plan: Off statins. (3) Heart palpitations: Code(s): R00.2 - Palpitations Category: Medical Plan: Uncertain etiology. Reviewed the smart watch/smart phone data. There is recording of heart rates in the 160s for about 45 minutes to an hour but rhythm is not clear. However, unremarkable Holter monitor. Atrial arrhythmias like atrial fibrillation is possible and if any recurrence, she will contact us. Plan Discussion Notes I discussed with the patient the results of her cardiac monitoring, which showed no significant arrhythmias, and reassured her about the infrequency of her symptoms. We talked about the importance of continuing her current medications and the plan for regular follow-up visits every six months. I encouraged her to use the patient portal for any concerns that may arise between visits. Patient was informed and verbally consented to the use of an ambient scribe for clinic note documentation during this visit. Patient Instructions: - Continue taking aspirin and Repatha as prescribed. - Schedule and attend follow-up appointments every six months. Coding Level of Care Code Est Pt Level 4 (70442) Complex EM visit Add On G2211 Diagnoses Atherosclerotic cardiovascular disease I25.10 Statin intolerance Z78.9 Heart palpitations R00.2
== END 2025-05-19 08:55 | disposition home or self-care (01) ==
LOC: HO.HCS 08:39
PROVIDERS: PCP Internal Medicine; Visit Provider Internal Medicine
DX: I25.10 Atherosclerotic heart disease of native coronary artery without angina pectoris (principal); Z78.9 Other specified health status; R00.2 Palpitations
CPT/HCPCS: 99214; G2211

== ENCOUNTER → 2025-05-19 08:38 | Outpatient (BNVA) | payer MEDICARE, SELFPAY | PROVIDERS: PCP Internal Medicine; Visit Provider Internal Medicine | DX: I25.10 Atherosclerotic heart disease of native coronary artery without angina pectoris (principal); R00.2 Palpitations; Z78.9 Other specified health status | CPT/HCPCS: 99212 ==

== ENCOUNTER 2025-07-14 09:24 | Outpatient (REF) | payer MEDICARE, SELFPAY ==
--- OUTSIDE RECORDS SUMMARY | 2024-07-05 04:30 | XMS_ITS ---
Author Organization [facility] Address [address] [place] [address] Care Team Providers Care Insurance Policy Clerk Name Role Phone Brandon Phelan MD Primary Care Provider Roque Monterroso [phone] REASON FOR VISIT sceening Encounters Encounter Location Date Provider Diagnosis [facility] [place] [address] [place], [place] [phone] 07/05/2024 Roque Wright Plan Of Treatment No Information Progress Notes * GWENDOLYN ROMODOB:1945 (79 yo F)Acc No.[id number]:07/05/2024 COLON WITH MAC Patient: GWENDOLYN TITUS Provider: Sabrina Wright MD :1945 A ge:78 Y S ex:Female Date:07/05/2024 Address: [address] [facility] Pcp:Brandon Phelan MD Subjective: * Chief Complaints: [...] Date: 07/05/2024 Generated for Glenis ribeiro/Faary/eTransmitting on: 07/14/2025 10:26 AM EDT
--- OUTSIDE RECORDS SUMMARY | 2024-09-06 03:30 | XMS_ITS ---
Author Organization [facility] Address [address] [place] [address] Care Team Providers Care Behavioral Analyst Name Role Phone Brandon Phelan MD Primary Care Provider Roque Monterroso Unavailable [phone] REASON FOR VISIT sceening Problems Problem Type SNOMED Code ICD Code Onset Dates Problem Status W/U Status Risk Notes Problem Diverticular disease of colon ([id number]) Diverticulosis of large intestine without perforation or abscess without bleeding (K57.30) Active confirmed Encounters Encounter Location Date Provider Diagnosis [facility] [place] [address] [place] [phone] 09/06/2024 Roque Wright Colon cancer scree anay Z12.11 ; Personal history of colonic polyps Z86.0100 ; Diverticulosis of large intestine without perforation or abscess without bleeding K57.30 and Other hemorrhoids K64.8 Assessments Encounter Date Diagnosis (ICD Code) Assessment Notes Treatment Notes Treatment Clinical Notes Section Notes 09/06/2024 Colon cancer screening (ICD-10 - Z12.11) 09/06/2024 Personal history of colonic polyps (ICD-10 - Z86.0100) 09/06/2024 Diverticulosis of large intestine without perforation or abscess without bleeding (ICD-10 - K57.30) 09/06/2024 Other hemorrhoids (ICD-10 - K64.8) Plan Of Treatment No Information Progress Notes * DEMETRIUS ROSSEVELINDOB:1945 (79 yo F)Acc No.[id number]:09/06/2024 COLON WITH MAC Patient: GWENDOLYN TITUS Provider: Sabrina Wright MD :1945 A ge:79 Y S ex:Female Date:09/06/2024 Address:[address] [id number] Pcp:Brandon Phelan MD Subjective: * Chief Complaints: * 1 . Sceening. * Medical History: Objective: * Vitals: Assessment: * Assessment: 1. C olon cancer screening - Z12.11 (Primary) 2 . P ersonal history of colonic polyps - Z86.0100 3 . D iverticulosis of large intestine without perforation or abscess without bleeding - K57.30 4 . O ther hemorrhoids - K64.8 ? Plan: * Treatment: * Procedure Codes: G 0105 COLOREC CANCR SCR; COLNSCPY HI RISK, 0529F INTRVL 3+YRS PTS CLNSCP DOCD, 0528F RCMND FLW-UP 10 YRS DOCD, Modifiers: 1P * * The named appointment provid er may or may not be the originator of this progress note, and it is not deemed complete until electronically signed by the appointment provider. Sign off status: Pending * Provider: Sabrina Wright MD Date: 1 Generated for Glenis ribeiro/Brianna/Tseringsmitting on: 0 07/14/2025 10:26 AM EDT
--- OUTSIDE RECORDS SUMMARY | 2025-03-15 08:24 | XMS_ITS ---
Author Organization Brandon Phelan MD Address [address] [place] [phone] Care Team Providers Care Geophysical E Logger Name Role Phone Brandon Phelan Primary Care Provider [phone] Encounters Encounter Location Date Provider Diagnosis Brandon Phelan MD [address] [place] [phone] 03/15/2025 Brandon Phelan Plan Of Treatment Next Appt Details Provider Name:Brandon mcrae, 01/10/2026 07:15:00 AM, [address] [place] [address], [address] [place] [address], [phone], Provider Name:Brandon mcrae, 01/17/2026 08:30:00 AM, [address], [address], [place], [place], [phone], Progress Notes * Ida ROMO ADOB: 5 (79 yo F)Acc No.[id number]:03/15/2025 Patient: Ida TITUS :1945 A ge:79 Y S ex:Female Address: [place] [address] * true * Date: Generated for Glenis ribeiro/Brianna/eTransmitting on: 0 07/14/2025 10:26 AM EDT
--- OUTSIDE RECORDS SUMMARY | 2025-04-04 07:30 | XMS_ITS ---
Author Organization Brandon Phelan MD Address [address] [place], [place] [id number] Care Team Providers Care Broiler Chef Or Cook Name Role Phone Brandon Phelan Primary Care Provider [phone] Allergies Allergen (clinical drug ingredient) Drug/Non Drug Allergy documented on EMR Reaction Allergy Type Onset Date Status simvastatin Simvastatin myalgia Drug Allergy Act angélica atorvastatin Lipitor myalgia Drug Allergy Acti ve REASON FOR VISIT lump left side of face x 2 days Medications Medication SIG (Take, Route, Frequency, Duration) [...] MINUTES BEFORE MORNING MEAL for 90 Active Cephalexin 500 MG 1 capsule Orally twi ce a day for 10 days 04/04/2025 Active DULoxetine HCl 60 MG TAKE 1 CAPSULE BY M OUTH EVERY DAY FOR 30 DAYS for 90 Active Repatha 140 MG/ML 1 mL Subcutaneous Active Repatha Active Aspir-Low 81 MG 1 tablet Orally Once a day for 30 day(s) Active Problems Problem Type SNOMED Code ICD Code Onset Dates Problem Status W/U Status Risk Notes Problem Sialadenitis (83743796) Sialadenitis (K11.20) Active confirmed Vital Signs Blood pressure systolic 140 mm Hg 04/04/20 25 Blood pressure diastolic 66 mm Hg 025 Height 65 in 04/04/2025 Weight 163 lbs 04/04/2025 BMI 27.12 kg/m2 04/04/2025 Encounters Encounter Location Date Provider Diagnosis Brandon Phelan MD [address] [place] [phone] 04/04/2025 Brandon Phelan Sialadenitis K11.20 Assessments Encounter Date Diagnosis (ICD Code) Assessment Notes Treatment Notes Treatment Clinical Notes Section Notes 04/04/2025 Sialadenitis (ICD-10 - K11.20) if it doesn't go away to return, she confirmed understanding of medication and directions for use Plan Of Treatment Medication Medication Name Sig Start Date Stop Date Notes Cephalexin 500 MG 1 capsule Orally twice a day for 10 days 04/04/2025 Treatment Notes Assessment Notes Sialadenitis if it doesn't go miriam y to return, she confirmed understanding of medication and directions for use Next Appt Details Provider Name:Brandon mcrae, 01/10/2026 07:15:00 AM, [address] [place] [address], [address], [phone], Provider Name:Brandon mcrae, 01/17/2026 08:30:00 AM, [address] [place] [address], [address], [phone], Progress Notes * Ida ROMO ADOB: 5 (79 yo F)Acc No.[id number]:04/04/2025 Progress Notes Patient: W ARMANDO, Ida A Provider: Karly Phelan MD :1945 A ge:79 Y S ex:Female Date:04/04/2025 Address:[address] [id number] Subjective: * Chief Complaints: * L ump left side of face x 2 days * HPI: S ymptom(s): patient is a 79 yo female here with complaint she woke up 2 days ago with lump on side of face. * ROS: G eneral/Constitutional: Denies C hills. D enies F atigue. D enies F ever. D enies H eadache. E NT: Denies S ore throat. R espiratory: Denies C ough. D enies S hortness of breath at rest. D enies S hortness of breath with exertion. G astrointestinal: Denies D iarrhea. D enies N ausea. * Medical History: * Surgical History: * Hospitalization/Major Diagno stic Procedure: * Medications: T akingRepatha 140 MG/ML Solution Prefilled Syringe 1 mL [...] BY MOUTH EVERY DAY FOR 30 DAYS Medication List reviewed and reconciled with the patientTaking Repatha 140 MG/ML Solution Prefilled Syringe 1 mL Subcutaneous Taking Repatha Taking Aspir-Low 81 MG Tablet [...] BY MOUTH EVERY DAY FOR 30 DAYS Medication List reviewed and reconciled with the patient * Allergies: S imvastatin: myalgiaLipitor: myalgiayes[Allergies Verified] Objective: * Vitals: H t: 65, Wt: 163, BMI:27.12, BP:140/66, Wt-k.94. * Examination: G eneral Examination: GENERAL APPEARANCE: w ell developed, well nourished. HEAD: a bnormal with a small nodule in anterior parotid where there was a large mass 2 days ago. Assessment: * Assessment: 1. S ialadenitis - K11.20 (Primary) Plan: * Treatment: * Procedure Codes: * * Sign off status: Completed true * Provider: Karly Phelan MD Date: 0 04/04/2025 Generated for Glenis ribeiro/Brianna/Jadielitting on: 0 07/14/2025 10:27 AM EDT History and Physical Notes * HPI (History of Present Illness) Category Sub-Category Detail Notes Category Not es Symptom(s) patient is a 79 yo female here with complaint she woke up 2 days ago with lump on side of face Examination Category Sub-Category Detail Notes Category Not es General Examination GENERAL APPEARANCE: well developed , well nourished HEAD: abnormal with a smal l nodule in anterior parotid where there was a large mass 2 days ago
--- OUTSIDE RECORDS SUMMARY | 2025-07-14 04:45 | XMS_ITS ---
Author Organization Brandon Phelan MD Address [address] [place] [phone] Care Team Providers Care Tire Trimmer Hand Name Role Phone Brandon Phelan Primary Care Provider [phone] Results Component Value Reference Range Notes Hemoglobin A1c (Not yet revi ewed by provider) Interpretation: Performing Lab:[facility], [address] [place] [id number] Notes/Report: Hemoglobin A1c % 5.4 <6.0 % Hemoglobin A1C Reference Range Adults: 4.8 - 6.0 % Non diabetic: < 6.0 % Goal: < 7.0 % Additional Action Suggested: > 8.0 % Note: Hemoglobin A1c results are invalid for patients with abnormal amounts of HbF. Blood transfusions may impact the HbA1c concentration in the patient sample. Estimated Average Glucose 108 eAG = Estimated average glucose which is %A1C expressed as average glucose, using the formula of the U4Q-Gqoygae Average Glucose study (ADAG), Diabetes Care, Vol.31,#8, Jun. 2007 REASON FOR VISIT FASTING LIPIDS Encounters Encounter Location Date Provider Diagnosis Brandon Phelan MD [address] [place] [phone] 07/14/2025 Brandon Phelan Prediabetes R73.09 a nd Pure hypercholesterolemia E78.00 Assessments Encounter Date Diagnosis (ICD Code) Assessment Notes Treatment Notes Treatment Clinical Notes Section Notes 07/14/2025 Prediabetes (ICD-10 - R73.09) 07/14/2025 Pure hypercholesterolemia (ICD-10 - E78.00) Plan Of Treatment Pending Test Test Name Order Date Liver Panel 07/14/2025 Glucose Fasting 07/14/2025 Lipid Panel with Reflex 07/14/2025 Hemoglobin A1c 07/14/2025 Next Appt Details Provider Name:Brandon Villagomez ier, 01/10/2026 07:15:00 AM, [address] [place] [address], [address], [phone], Provider Name:Barndon Villagomez ier, 01/17/2026 08:30:00 AM, [address] [place] [address], [place] [address], [place], [place], [phone], Progress Notes * DAVIDIda ADOB: 5 (79 yo F)Acc No.[id number]:07/14/2025 Progress Note Patient: Ida TITUS Provider: Karly Phelan MD :1945 A ge:79 Y S ex:Female Date:07/14/2025 Address: [address] [id number] Subjective: * Chief Complaints: * 1 . FASTING LIPIDS. * Medical History: Objective: * Vitals: Assessment: * Assessment: 1. P rediabetes - R73.09 (Primary) 2 . P ure hypercholesterolemia - E78.00? Plan: * Treatment: 2. P ure hypercholesterolemia L AB: Liver Panel L AB: Glucose Fasting L AB: Lipid Panel with Reflex L AB: Hemoglobin A1c (Collection Date & Time - 07/14/2025 07:15 AM) * Procedure Codes: 3 6415 VENIPUNCT, ROUTINE* * * The named appointment provid er may or may not be the originator of this progress note, and it is not deemed complete until electronically signed by the appointment provider. Sign off status: Pending * Provider: Karly Phelan MD Date: 0 07/14/2025 Generated for Glenis ribeiro/Brianna/Jadielitting on: 0 07/14/2025 10:26 AM EDT
[2025-07-14 09:59] LABS: Hemoglobin A1C 124.9040 umol/L; Total Hemoglobin (HGBA1C) 3503.1381 umol/L
[2025-07-14 10:10] LABS: Alanine Aminotransferase 22 U/L (0-31); Albumin Level 4.1 g/dL (3.5-5.0); Alkaline Phosphatase 76 U/L (39-117); Aspartate Amino Transferase 21 U/L (5-31); Cholesterol 138 mg/dL (<200); HDL Cholesterol 57 mg/dL (>40); Total Protein 7.0 g/dL (6.5-8.0); Triglycerides 88 mg/dL (<150)
--- OUTSIDE RECORDS SUMMARY | 2025-07-14 10:26 | XMS_ITS | Patient Health Record ---
Author Organization Brandon Phelan MD Address [address] [place] [address] [phone] Care Team Providers Care Manager Transfer Name Role Phone Brandon Phelan Primary Care Provider Allergies Allergen (clinical drug ingredient) Drug/Non Drug Allergy documented on EMR Reaction Allergy Type Onset Date Status simvastatin Simvastatin myalgia Drug Allergy Act angélica atorvastatin Lipitor myalgia Drug Allergy Acti ve Results Component Value Reference Range Notes Complete Blood Count Auto Di ff Reviewed date:01/07/2025 04:39:33 PM Interpretation: Performing Lab:[facility], [address] [place] [phone] Notes/Report: White Blood Count 8.4 4.8-10.8 X10*3/uL [...] NRBC Abs Auto 0.000 0.0-0.012 X10*3/uL Comprehensive [place]. Panel Fa st Reviewed date:01/07/2025 04:38:33 PM Interpretation: Performing Lab:[facility], [address] [place] [phone] Notes/Report: Sodium 142 135-145 mmol/L Potassium 4.7 [...] Panel Reviewed date:01/07/2025 12:36:07 PM Interpretation: Performing Lab:[address] [phone] Notes/Report: Triglycerides 101 <150 mg/dL Desirable Triglyceride: [...] Total Reviewed date:01/07/2025 12:36:16 PM Interpretation: Performing Lab:[address] [phone] Notes/Report: Vitamin D 25-OH Total 59.7 >30 [...] A1c Reviewed date:01/07/2025 12:35:50 PM Interpretation: Performing Lab:[facility], [address] [place] [phone] Notes/Report: Hemoglobin A1c % 5.3 <6.0 % [...] average glucose, using the formula of the E8P-Zwlwsmj Average Glucose study (ADAG), Diabetes Care, Vol.31,#8, Jun. 2007 Hemoglobin A1c (Not yet revi ewed by provider) Interpretation: Performing Lab:[facility], [address] [place] [phone] Notes/Report: Hemoglobin A1c % 5.4 <6.0 % [...] average glucose, using the formula of the S0R-Cltqgjg Average Glucose study (ADAG), Diabetes Care, Vol.31,#8, Jun. 2007 XR hip LT min 2V Reviewed date:09/17/2024 09:56:11 AM Interpretation: Performing Lab: Notes/Report: [address] [address] XRay Report Signed Patient: Ida Hernandez MR#: [id number] 78 : 1945 Acct:[id number] Age/Sex: 79 / F ADM Date: 09/16/24 Loc: [facility] Attending Dr: Brandon Phelan MD Ordering Physician: Brandon Phelan MD Date of Service: 09/16/24 Procedure(s): XR hip LT min 2V Accession Number(s): [id number] cc: Brandon Phelan MD EXAMINATION: XR HIP, [...] Scottie White MD 09/16/2024 10:52 PM EDT Dictated By: Scottie White MD Signed By: <Electronically signed by Scottie White MD in OV> 09/16/24 2252 DD/ 28 TD/TT: 09/16/241128 Secy: [place] [address] XRay Report Signed Patient: Eri Hernandez MR#: [id number] [birth year] : 1945 Acct:[id number] Age/Sex: 79 / F ADM Date: 09/16/24 Loc: HO.XRAY Attending Dr: Brandon Phelan MD Ordering Physician: Brandon Phelan MD Date of Service: 09/16/24 Procedure(s): XR hip LT min 2V Accession Number(s): [id number] cc: Brandon Phelan MD EXAMINATION: XR HIP, [...] in OV> 09/16/242251 DD/ 28 TD/TT: 09/16/241128 Secy: TRENTON Melo, Random Reviewed date:01/14/2025 04:26:37 PM Interpretation: Performing Lab:[address] [address] Notes/Report: Creatinine Urine 68.37 Microalbumin Urine < 5.0 Microalbum/Creatinine Ratio Ur TNP <30 ug/mg cr Unable to calculate albumin/creatinine ratio due to low microalbumin or creatinine result. UA ClnCatch+Micro w/rflx Cul t Reviewed date:01/14/2025 04:41:00 PM Interpretation: Performing Lab:[address] [phone] Notes/Report: Urine, Clean Catch Color Urine Yellow Appearance Urine Clear PH 5.5 5.0-9.0 Glucose Urine UA Negative Negative mg/dL Urine Blood Negative Negative Specific [place] - Urine 1.015 1.005-1.025 Urine Protein Negative Neg-Trace mg/dL Urine Ketones Negative Negative mg/dL Nitrite Urine Negative Negative Leukocyte Esterase Urine Moderate (2+) Negative RBC Urine 0-2 0-2 /HPF WBC Urine 11-20 0-5 /HPF Squamous Epithelial Cell Urine 3-5 0-2 /HPF Bacteria Urine None Seen None Seen Hyaline Casts Urine 0-2 0-2 /LPF Hold Gold Reviewed date:01/07/2025 12:35:44 PM Interpretation: Performing Lab:[address] [phone] Notes/Report: Hold Gold See Note Specimen held untested for 24 hours; Call to request Chemistry testing. Urine Culture Reviewed date:01/16/2025 06:23:53 PM Interpretation: Performing Lab:[address] [address] Notes/Report: O:STRAGA Strep agalactiae (Gr p B) Urine Culture Quant Urine Culture > 100,000 cfu/mL Urine Culture Susc N/A Urine Culture Susceptibility not routinely performed on this isolate. US abdomen complete Reviewed date:03/21/2025 02:40:41 PM Interpretation: Performing Lab: Notes/Report: [address] [address] Ultrasound Report Signed Patient: Ida Hernandez MR#: [id number] 78 : 1945 Acct:[id number] Age/Sex: 79 / F ADM Date: 02/22/25 Loc: HO.US Attending Dr: Brandon Phelan MD Ordering Physician: Brandon Phelan MD Date of Service: 02/22/25 Procedure(s): US abdomen complete Accession Number(s): [id number] cc: Brandon Phelan MD CLINICAL HISTORY: ABD [...] in OV> 02/22/25 1626 DD/ 1625 TD/TT: 02/22/251624 Secy: [address] [address] Ultrasound Report Signed Patient: Eri Hernandez MR#: [id number] [birth year] : 1945 Acct:[id number] Age/Sex: 79 / F ADM Date: 02/22/25 Loc: HO.US Attending Dr: Brandon Phelan MD Ordering Physician: Brandon Phelan MD Date of Service: 02/22/25 Procedure(s): US abdomen complete Accession Number(s): [id number] cc: Brandon Phelan MD CLINICAL HISTORY: AB [...] OV> 02/22/25 1626 DD/ 1625 TD/TT: 02/22/25 1625 Secy: XR chest 2V Reviewed date:02/22/2025 12:15:36 PM Interpretation: Performing Lab: Notes/Report: [address] [address] XRay Report Signed Patient: Ida Hernandez MR#: [id number] [birth year] : 1945 Acct:[id number] Age/Sex: 79 / F ADM Date: 02/22/25 Loc: .US Attending Dr: Brandon Phelan MD Ordering Physician: Brandon Phelan MD Date of Service: 02/22/25 Procedure(s): XR chest 2V Accession Number(s): [id number] cc: Brandon Phelan MD EXAMINATION: XR CHEST [...] in OV> 02/22/25924 DD/ 1 TD/TT: 02/22/25804 Secy: [address] [address] XRay Report Signed Patient: Eri Hernandez MR#: [id number] [birth year] : 1945 Acct:[id number] Age/Sex: 79 / F ADM Date: 02/22/25 Loc: [facility] Attending Dr: Brandon Phelan MD Ordering Physician: Brandon Phelan MD Date of Service: 02/22/25 Procedure(s): XR meng st 2V Accession Number(s): [id number] cc: Brandon Phelan MD EXAMINATION: XR CHES [...] Roque Durant MD in OV> 02/22/25924 DD/ TD/TT: 02/22/25 08 Secy: Mason Argueta (Not yet reviewed by provider) Interpretation: Performing Lab:[facility], [address] [place] [phone] Notes/Report: Mason Argueta See Note Specimen held untested for 24 hours; Call to request Chemistry testing. Reason For Referral Reason lumbar disc disease [...] Notes Start Date End Date Status Repatha 140 MG/ML 1 mL Subcutaneous Active Omeprazole 20 MG TAKE 1 CAPSULE BY [facility] EVERY DAY 30 MINUTES BEFORE MORNING MEAL for 90 Active Albuterol Sulfate HFA 108 (90 Base) MCG/ACT 1 puff as needed Inhalation every 4 hrs for 30 days 01/29/2022 Active Nitrostat 0.4 MG as directed Sublingu al for chest pain may repeat every 5 min times 3 for 30 days 06/18/2022 Active Repatha Active Aspir-Low 81 MG 1 tablet Orally Once a day for 30 day(s) Active Cephalexin 500 MG 1 capsule Orally twi ce a day for 10 days 04/04/2025 Active DULoxetine HCl 60 MG TAKE 1 CAPSULE BY [facility] EVERY DAY FOR 30 DAYS for [...] 10/18/2014 Administered Fluarix Quadrivalent IM Intramuscular 09/08/2015 Administe red TDaP IM Intramuscular 01/18/2016 Administered Fluarix Quadrivalent IM Intramuscular 08/13/2016 Administe red Fluarix Quadrivalent IM Intramuscular 09/23/2017 Administe red Shingrix IM Intramuscular 2018 Administered Fluarix Quadrivalent IM Intramuscular 08/17/2018 Administe red Shingrix IM Intramuscular 02/08/2019 Administered pt was given the vaccine at [facility] in [place]. Influenza High Dose Unknown 08/18/2019 [facility]ered [facility] [...] Problem Status W/U Status Risk Notes Problem 55584034 Age-related osteoporosis without current pathological fracture (M81.0) Active confirmed Problem 943032514 Atherosclerotic heart disease of [place] coronary artery without angina pectoris (I25.10) Active confirmed Problem Acid reflux (642714704) Acid reflux (K21.9) Active confirmed Problem 78883989 Lymphocytosis (D72.820) Active confirmed Problem 43212025 Vitamin D defici ency (E55.9) Active confirmed Problem 84401773 Anxiety (F41.9) Active confirmed Problem 91871367 Hip arthritis (M19.90) Active confirme d Problem 7740052 Panlobular emphy sema (J43.1) Active confirmed Problem 249698487410544 Primary osteoarthritis, right hand (M19.041) Active confirmed Problem 568115323500949 Primary osteoarthritis, left hand (M19.042) Active confirmed Problem 14798629 Lumbar disc dise ase (M51.9) Active confirmed Problem 062277274 Osteopenia (M85.80) Active confirmed Problem 929610874 Mild intermitten t asthma without complication (J45.20) Active confirmed Problem 8948468 Prediabetes (R73.09) Active confirmed Problem 047641872 Memory loss (R41.3) Active confirmed Problem 892475810 History of hemat uria (Z87.448) Active confirmed Problem Sialadenitis (01295091) Sialadenitis (K11.20) Active confirmed Problem 535959790 Cervical disc di sease (M50.90) Active confirmed Problem 61308540 Peptic ulcer (K27.9) Active confirmed Problem 58692053 Sciatica of left side (M54.32) Active confirmed Problem 88335810 Dysthymia (F34.1) Active confirmed Problem 66135624 Reactive depress ion (F32.9) Active confirmed Problem Emphysema (63446865) Lung disease, 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) Active confirmed Problem Liver cyst (92926783) Liver cyst (K76.89) Active confirmed Problem 171825856 Pure hypercholesterolemia (E78.00) Active confirmed Problem 174202948 Coronary artery disease of [place] artery of [place]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 pectoris (I25.118) Active confirmed Problem 796241552 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) Active confirmed Problem 765617851 Mild intermitten t asthmatic bronchitis with acute exacerbation (J45.21) Active confirmed Problem 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 Problem 77892490 Osteoporosis, unspecified osteoporosis type, unspecified pathological fracture presence (M81.0) Active confirmed Problem 81545434 Stasis dermatiti s of both legs (I87.2) Active confirmed Vital Signs Blood pressure diastolic 66 mm Hg 04/04/2025 Height 65 in 04/04/2025 Blood pressure systolic 140 mm Hg 04/04/2025 Weight 163 lbs 04/04/2025 BMI 27.12 kg/m2 04/04/2025 Encounters Encounter Location Date Provider Diagnosis Brandon Phelan MD [address] [place] [address] [id number] 01/07/2025 Brandon Phelan Blood tests for rout ine general physical examination Z00.00 ; Prediabetes R73.09 ; Pure hypercholesterolemia E78.00 ; Lymphocytosis D72.820 and Vitamin D deficiency E55.9 Brandon Phelan MD [address] [place] [id number] 07/14/2025 Brandon Phelan Prediabetes R73.09 a nd Pure hypercholesterolemia E78.00 Brandon Phelan MD [address] [place] [address] [id number] 09/16/2024 Brandon Phelan Hip pain, left M25.5 52 and Spinal stenosis of lumbosacral region M48.07 Brandon Phelan MD [address] [place] [id number] 12/17/2024 Brandon Phelan Lumbar disc disease with radiculopathy M51.16 Brandon Phelan MD [address] [place] [id number] 01/14/2025 Brandon Phelan Prediabetes R73.09 ; Annual physical exam Z00.00 ; History of hematuria Z87.448 ; Coronary artery disease of [place] artery of [place]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 pectoris I25.118 ; Muscle cramps R25.2 ; Abdominal pain R10.9 ; Lung disease, bullous J43.9 ; Vitamin D deficiency E55.9 ; Acid reflux K21.9 and Depression screening Z13.31 Brandon Phelan MD [address] [place] [id number] 03/11/2025 Brandon Phelan Prediabetes R73.09 a nd Liver cyst K76.89 Brandon Phelan MD [address] [place] [address] [id number] 04/04/2025 Brandon Phelan Sialadenitis K11.20 Brandon Phelan MD [address] [place] [address] [id number] 08/03/2024 Brandon Phelan MD [address] [place] [address] [id number] 10/11/2024 Brandon Phelan MD [address] [place] [id number] 03/15/2025 Brandon Phelan MD [address] [place] [id number] 08/26/2024 Brandon Phelan Assessments Encounter Date Diagnosis (ICD Code) Assessment Notes Treatment Notes Treatment Clinical Notes Section Notes 01/07/2025 Blood tests for routine general physical examination (ICD-10 - Z00.00) 07/14/2025 Prediabetes (ICD-10 - R73.09) 09/16/2024 Hip pain, left (ICD- 10 - M25.552) order given to patient/pending diagnostic testing 09/16/2024 Spinal stenosis of lumbosacral region (ICD-10 - M48.07) MRI order faxed to [facility], pending diagnostic testing has a lot of [...] call back from radiaology for further explanation 04/04/2025 Sialadenitis (ICD-10 - K11.20) if it doesn't go away to return, she confirmed understanding of medication and directions for use 01/07/2025 Prediabetes (ICD-10 - R73.09) 07/14/2025 Pure hypercholesterolemia (ICD-10 - E78.00) 01/14/2025 History of hematuria (ICD-10 - Z87.448) will get u/a, pending results 01/07/2025 Pure hypercholesterolemia (ICD-10 - E78.00) 01/14/2025 Coronary artery disease of [place] artery of [place]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 pectoris (ICD-10 - [...] US ABD AORTA 12/19/2020 US ABD 01/14/2025 Liver Panel 07/14/2025 Glucose Fasting 07/14/2025 Lipid Panel with Reflex 07/14/2025 Microalbumin, Random 01/07/2025 Hold Gold 07/14/2025 Hemoglobin A1c 07/14/2025 UA ClnCatch+Micro w/rflx Cult 01/07/2025 Future Test Test Name Order Date US abdomen complete 01/15/2022 Next Appt Details Provider Name:Brandon Villagomez ier, 01/10/2026 07:15:00 AM, [address], [address], [place], [place], [id number], Provider Name:Brandon Villagomez ier, 01/17/2026 08:30:00 AM, [address], [address], [place], [place], [id number], Insurance Providers Payer Name Payer Address Payer Phone Subscriber Number Group Number Insured Name Patient Relationship to Insured Coverage Start Date Coverage End Date [facility] are [employer] [address] [address] [place] [phone] [id number] Ida Hernandez Self - patient is the [...]
--- OUTSIDE RECORDS SUMMARY | 2025-07-14 10:27 | XMS_ITS | Patient Health Record ---
Author Organization [facility] Address [address] [place] [address] Care Team Providers Care Waist Pleater Name Role Phone Brandon Phelan MD Primary Care Provider Roque Monterroso [phone] Allergies No Known Allergies Reason For Referral No Information Medications Medication SIG (Take, Route, Frequency, Duration) Notes Start Date End Date Status Omeprazole 20 MG Oral for 90 A ctive Aspir-81 Active Rosuvastatin Calcium 10 MG Oral for 90 Active Cymbalta Active Problems Problem Type SNOMED Code ICD Code Onset Dates Problem Status W/U Status Risk Notes Problem Colon cancer screening (019915236) Colon cancer screening (Z12.11) Active confirmed Problem Pre-procedure evaluation check (027044719) Encounter for other preprocedural examination (Z01.818) Active confirmed Problem Diverticular disease of colon (083068699) Diverticulosis of large intestine without perforation or abscess without bleeding (K57.30) Active confirmed Problem Long-term current use of aspirin (721101506365969 ) Aspirin long-term use (Z79.82) Active confirmed Encounters Encounter Location Date Provider Diagnosis [facility] Outpatient [address] [place] [id number] 09/06/2024 Roque Wright Colon cancer scree anay [...] Insured Coverage Start Date Coverage End Date [facility] [address] [address] [place] [address] [phone] [id number] GWENDOLYN ROMO Self - patient is the [...]
[2025-07-14 11:06] LABS: Reflex LDLD? No
== END 2025-07-14 09:25 | disposition home or self-care (01) ==
LOC: HO.LNP 09:24
PROVIDERS: Visit Provider Internal Medicine
DX: R73.09 Other abnormal glucose (principal); E78.00 Pure hypercholesterolemia, unspecified
CPT/HCPCS: 80061; 80076; 82947; 83036

== ENCOUNTER 2025-09-06 13:29 | Outpatient (REF) | payer MEDICARE, SELFPAY ==
[2025-09-06 14:20] LABS: Blood Urea Nitrogen 15 mg/dL (9-16); Estimated Glomerular Filt Rate > 60
== END 2025-09-06 13:30 | disposition home or self-care (01) ==
LOC: HO.LNP 13:29
PROVIDERS: Visit Provider Internal Medicine
DX: Z01.812 Encounter for preprocedural laboratory examination (principal)
CPT/HCPCS: 82565; 84520